=== PATIENT | male | born 1970 | race Caucasian/White ===

== ENCOUNTER 2018-11-16 12:42 | Inpatient (IN) | payer MEDICARE ==
[2018-11-16] VITALS (10 sets, daily range): BP systolic 95–111; BP diastolic 74–91
[~2018-11-16] VITALS: Ht 172.7 cm; Wt 92.1 kg
--- OUTSIDE RECORDS SUMMARY | 2018-11-16 12:45 | XMS REPORT ---
Author Author [facility] Address Unknown Phone Unavailable Care Team Providers Care Scouring Machine Operator Name Role Phone SHAMA GE Unavailable Unavailable DO MINE WALTERS Unavailable Unavailable Problems This patient has no known problems. Allergies, Adverse Reactions, Alerts This patient has no known allergies or adverse reactions. Medications This patient has no known medications. Results Test Description Test Time Test Comments Text Results Atomic Results Result Comments PT AND INR 2018-10-28 07:36:00 Protime (test code=PT) 24.1 seconds 9.0-11.9 INR (test code=INR) 2.5 0.9-1.1 INR results are intended ONLY to monitor Oral Anticoagulant therapy in stablized patients. The INR Therapeutic Range is 2.0 - 3.0 Patients with a mechanical heart, the INR Range is 2.5 - 3.5 CBC WITH AUTO [id number] 07:24:00* Test Item Value Reference Range Comments WBC (test code=WBC) 7.21 10\\S\\3/ul 4.80-10.80 RBC (test code=RBC) 3.60 10\\S\\6/ul 4.70-6.10 Hemoglobin (test code=HGB) 11.5 gm/dl 14.0-18.0 Hematocrit (test code=HCT) 34.7 % 42.0-50.0 MCV (test code=MCV) 96.4 fL 80.0-94.0 MCH (test code=MCH) 31.9 pg 27.0-31.0 MCHC (test code=MCHC) 33.1 gm/dl 33.0-37.0 RDW (test code=RDWVC) 18.5 % 11.5-14.5 Platelet (test code=PLT) 369 10\\S\\3/ul 130-400 MPV (test code=MPV) 10.1 fL 7.4-10.4 "NOT MEASURED" RESULTS ARE DISPLAYED WHEN THE INSTRUMENT HAS A SUPPRESSED OR UNREPORTABLE RESULT. THIS WILL MOST OFTEN HAPPEN WITH THE MPV WHEN THERE IS AN ABNORMAL PLATELET DISTRIBUTION DUE TO A CR ITICAL LOW VALUE OR PLATELET CLUMPING. THE RDW MAY BE SUPPRESSED IF THERE ARE MULTIPLE PEAKS PRESENT ON THE RBC HISTOGRAM. IN THIS CASE, A MANUAL REVIEW OF THE SLIDE WILL BE PERFORMED, AND RBC MORPHOLOGY WILL BE NOTED ON THE REPORT. NE% (test code=NE) 65.8 % 42.0-75.0 LY% (test code=LY) 17.2 % 13.0-42.0 MO% (test code=MO) 13.9 % 4.0-14.0 EO% (test code=EO) 1.7 % 1.0-5.0 BA% (test code=BA) 1.0 % 0.0-3.0 IG% (test code=IG%) 0.4 % 0.0-0.4 [id number] 07:18:00* Test Item Value Reference Range Comments Sodium (test code=NA) 138 mmol/l 137-145 Potassium (test code=K) 4.1 mmol/l 3.5-5.1 Chloride (test code=CL) 101 mmol/l 98-107 Calcium (test code=CALC) 8.9 mg/dl 8.5-10.1 CO2 (test code=CO2) 32 mmol/l 21-32 Glucose (test code=GLU) 91 mg/dl 74-106 BUN (test code=BUN) 10.0 mg/dl 7.0-18.0 Creatinine (test code=CREA) 0.7 mg/dl 0.5-1.3 EGFR if (test code=EGFRAA) >60 mL/min/1.73m\\S\\2 EGFR if Non- (test code=EGFRNA) >60 mL/min/1.73m\\S\\2 Estimated Glomerular Filtration Rate (eGFR) Reference Intervals Decision Points for 18 years and older and average body mass: >=60 Does not exclude kidney disease. 30 - 59 Suggests moderate chronic kidney disease and indicates the need for further investigation including assessment of proteinuria and cardiovascular factors. < 30 Usually indicates a need for referral for assessment and management of chronic kidney failure. [id number] 07:18:00* Test Item Value Reference Range Comments Magnesium (test code=MG) 2.3 mg/dl 1.6-2.6 XR CHEST 2 PA [id number] 09:28:40Procedure: XR CHEST 2 PA LATERALOrder Date: 10/27/2018 5:00 AMOrdering Provider: KIRAN Greenberginical Indication: R07.1: CHEST PAIN ON [id number]: O/E - pulmonary edemaComparison: October 24, 2018Findings:Cardiac size is enlarged.Pulmonary vasculature is normal.Mediastinal contour is normal.Aortic contour is normal.Moderate right pleural effusion with basilar infiltrate versus ate lectasis.Small left pleural effusion with basilar infiltrate versus atelectasis. No pneumothorax.There is no skeletal abnormality.Impression:1. Moderate right pl eural effusion with basilar infiltrate versus atelectasis.2. Small right pleural effusion with left basilar infiltrate versus atelectasis.3. Stable cardiomegaly .4. No other significant interval change.This final report was electronically si gned by Dr Alexei Ramirez MD 10/27/20189:22 AMDictated By: ALEXEI RAMIREZ.Date: 10/27/2018 09:[id number] 07:23:00* Test Item Value Reference Range Comments Sodium (test code=NA) 137 mmol/l 137-145 Potassium (test code=K) 4.2 mmol/l 3.5-5.1 Chloride (test code=CL) 101 mmol/l 98-107 Calcium (test code=CALC) 8.9 mg/dl 8.5-10.1 CO2 (test code=CO2) 30 mmol/l 21-32 Glucose (test code=GLU) 84 mg/dl 74-106 BUN (test code=BUN) 10.0 mg/dl 7.0-18.0 Creatinine (test code=CREA) 0.7 mg/dl 0.5-1.3 EGFR if (test code=EGFRAA) >60 mL/min/1.73m\\S\\2 EGFR if Non- (test code=EGFRNA) >60 mL/min/1.73m\\S\\2 Estimated Glomerular Filtration Rate (eGFR) Reference Intervals Decision Points for 18 years and older and average body mass: >=60 Does not exclude kidney disease. 30 - 59 Suggests moderate chronic kidney disease and indicates the need for further investigation including assessment of proteinuria and cardiovascular factors. < 30 Usually indicates a need for referral for assessment and management of chronic kidney failure. [id number] 07:23:00* Test Item Value Reference Range Comments Magnesium (test code=MG) 2.2 mg/dl 1.6-2.6 CBC WITH AUTO [id number] 07:04:00* Test Item Value Reference Range Comments WBC (test code=WBC) 7.61 10\\S\\3/ul 4.80-10.80 RBC (test code=RBC) 3.44 10\\S\\6/ul 4.70-6.10 Hemoglobin (test code=HGB) 11.0 gm/dl 14.0-18.0 Hematocrit (test code=HCT) 33.3 % 42.0-50.0 MCV (test code=MCV) 96.8 fL 80.0-94.0 MCH (test code=MCH) 32.0 pg 27.0-31.0 MCHC (test code=MCHC) 33.0 gm/dl 33.0-37.0 RDW (test code=RDWVC) 18.9 % 11.5-14.5 Platelet (test code=PLT) 347 10\\S\\3/ul 130-400 MPV (test code=MPV) 10.2 fL 7.4-10.4 "NOT MEASURED" RESULTS ARE DISPLAYED WHEN THE INSTRUMENT HAS A SUPPRESSED OR UNREPORTABLE RESULT. THIS WILL MOST OFTEN HAPPEN WITH THE MPV WHEN THERE IS AN ABNORMAL PLATELET DISTRIBUTION DUE TO A CR ITICAL LOW VALUE OR PLATELET CLUMPING. THE RDW MAY BE SUPPRESSED IF THERE ARE MULTIPLE PEAKS PRESENT ON THE RBC HISTOGRAM. IN THIS CASE, A MANUAL REVIEW OF THE SLIDE WILL BE PERFORMED, AND RBC MORPHOLOGY WILL BE NOTED ON THE REPORT. NE% (test code=NE) 66.7 % 42.0-75.0 LY% (test code=LY) 16.7 % 13.0-42.0 MO% (test code=MO) 14.1 % 4.0-14.0 EO% (test code=EO) 1.2 % 1.0-5.0 BA% (test code=BA) 0.9 % 0.0-3.0 IG% (test code=IG%) 0.4 % 0.0-0.4 PT AND [id number] 06:54:00* Test Item Value Reference Range Comments Protime (test code=PT) 29.8 seconds 9.0-11.9 INR (test code=INR) 3.1 0.9-1.1 INR results are intended ONLY to monitor Oral Anticoagulant therapy in stablized patients. The INR Therapeutic Range is 2.0 - 3.0 Patients with a mechanical heart, the INR Range is 2.5 - 3.5 [id number] 07:34:00* Test Item Value Reference Range Comments Sodium (test code=NA) 139 mmol/l 137-145 Potassium (test code=K) 4.1 mmol/l 3.5-5.1 Chloride (test code=CL) 104 mmol/l 98-107 Calcium (test code=CALC) 8.6 mg/dl 8.5-10.1 CO2 (test code=CO2) 26 mmol/l 21-32 Glucose (test code=GLU) 80 mg/dl 74-106 BUN (test code=BUN) 11.0 mg/dl 7.0-18.0 Creatinine (test code=CREA) 0.7 mg/dl 0.5-1.3 EGFR if (test code=EGFRAA) >60 mL/min/1.73m\\S\\2 EGFR if Non- (test code=EGFRNA) >60 mL/min/1.73m\\S\\2 Estimated Glomerular Filtration Rate (eGFR) Reference Intervals Decision Points for 18 years and older and average body mass: >=60 Does not exclude kidney disease. 30 - 59 Suggests moderate chronic kidney disease and indicates the need for further investigation including assessment of proteinuria and cardiovascular factors. < 30 Usually indicates a need for referral for assessment and management of chronic kidney failure. with [id number] 06:10:00* Test Item Value Reference Range Comments Magnesium (test code=MG) 2.5 mg/dl 1.6-2.6 PT AND [id number] 05:58:00* Test Item Value Reference Range Comments Protime (test code=PT) 27.3 seconds 9.0-11.9 INR (test code=INR) 2.8 0.9-1.1 INR results are intended ONLY to monitor Oral Anticoagulant therapy in stablized patients. The INR Therapeutic Range is 2.0 - 3.0 Patients with a mechanical heart, the INR Range is 2.5 - 3.5 CBC WITH AUTO [id number] 05:57:00* Test Item Value Reference Range Comments WBC (test code=WBC) 7.07 10\\S\\3/ul 4.80-10.80 RBC (test code=RBC) 3.48 10\\S\\6/ul 4.70-6.10 Hemoglobin (test code=HGB) 11.3 gm/dl 14.0-18.0 Hematocrit (test code=HCT) 34.6 % 42.0-50.0 MCV (test code=MCV) 99.4 fL 80.0-94.0 MCH (test code=MCH) 32.5 pg 27.0-31.0 MCHC (test code=MCHC) 32.7 gm/dl 33.0-37.0 RDW (test code=RDWVC) 19.6 % 11.5-14.5 Platelet (test code=PLT) 317 10\\S\\3/ul 130-400 MPV (test code=MPV) 9.9 fL 7.4-10.4 "NOT MEASURED" RESULTS ARE DISPLAYED WHEN THE INSTRUMENT HAS A SUPPRESSED OR UNREPORTABLE RESULT. THIS WILL MOST OFTEN HAPPEN WITH THE MPV WHEN THERE IS AN ABNORMAL PLATELET DISTRIBUTION DUE TO A CR ITICAL LOW VALUE OR PLATELET CLUMPING. THE RDW MAY BE SUPPRESSED IF THERE ARE MULTIPLE PEAKS PRESENT ON THE RBC HISTOGRAM. IN THIS CASE, A MANUAL REVIEW OF THE SLIDE WILL BE PERFORMED, AND RBC MORPHOLOGY WILL BE NOTED ON THE REPORT. NE% (test code=NE) 66.6 % 42.0-75.0 LY% (test code=LY) 17.1 % 13.0-42.0 MO% (test code=MO) 12.7 % 4.0-14.0 EO% (test code=EO) 2.1 % 1.0-5.0 BA% (test code=BA) 1.1 % 0.0-3.0 IG% (test code=IG%) 0.4 % 0.0-0.4 [id number] 17:35:00* Test Item Value Reference Range Comments Magnesium (test code=MG) 2.4 mg/dl 1.6-2.6 HEPARIN [id number] 13:17:00* Test Item Value Reference Range Comments HEPARIN XA (test code=HEPXA) 0.36 0.30-0.70 [id number] 05:44:00* Test Item Value Reference Range Comments Sodium (test code=NA) 138 mmol/l 137-145 Potassium (test code=K) 4.7 mmol/l 3.5-5.1 Chloride (test code=CL) 105 mmol/l 98-107 Calcium (test code=CALC) 8.8 mg/dl 8.5-10.1 CO2 (test code=CO2) 26 mmol/l 21-32 Glucose (test code=GLU) 107 mg/dl 74-106 BUN (test code=BUN) 12.0 mg/dl 7.0-18.0 Creatinine (test code=CREA) 0.6 mg/dl 0.5-1.3 EGFR if (test code=EGFRAA) >60 mL/min/1.73m\\S\\2 EGFR if Non- (test code=EGFRNA) >60 mL/min/1.73m\\S\\2 Estimated Glomerular Filtration Rate (eGFR) Reference Intervals Decision Points for 18 years and older and average body mass: >=60 Does not exclude kidney disease. 30 - 59 Suggests moderate chronic kidney disease and indicates the need for further investigation including assessment of proteinuria and cardiovascular factors. < 30 Usually indicates a need for referral for assessment and management of chronic kidney failure. [id number] 05:44:00* Test Item Value Reference Range Comments Magnesium (test code=MG) 2.4 mg/dl 1.6-2.6 CBC WITH AUTO [id number] 05:40:00* Test Item Value Reference Range Comments WBC (test code=WBC) 7.30 10\\S\\3/ul 4.80-10.80 RBC (test code=RBC) 3.68 10\\S\\6/ul 4.70-6.10 Hemoglobin (test code=HGB) 11.7 gm/dl 14.0-18.0 Hematocrit (test code=HCT) 35.9 % 42.0-50.0 MCV (test code=MCV) 97.6 fL 80.0-94.0 MCH (test code=MCH) 31.8 pg 27.0-31.0 MCHC (test code=MCHC) 32.6 gm/dl 33.0-37.0 RDW (test code=RDWVC) 19.1 % 11.5-14.5 Platelet (test code=PLT) 342 10\\S\\3/ul 130-400 MPV (test code=MPV) 9.6 fL 7.4-10.4 "NOT MEASURED" RESULTS ARE DISPLAYED WHEN THE INSTRUMENT HAS A SUPPRESSED OR UNREPORTABLE RESULT. THIS WILL MOST OFTEN HAPPEN WITH THE MPV WHEN THERE IS AN ABNORMAL PLATELET DISTRIBUTION DUE TO A CR ITICAL LOW VALUE OR PLATELET CLUMPING. THE RDW MAY BE SUPPRESSED IF THERE ARE MULTIPLE PEAKS PRESENT ON THE RBC HISTOGRAM. IN THIS CASE, A MANUAL REVIEW OF THE SLIDE WILL BE PERFORMED, AND RBC MORPHOLOGY WILL BE NOTED ON THE REPORT. NE% (test code=NE) 71.6 % 42.0-75.0 LY% (test code=LY) 15.3 % 13.0-42.0 MO% (test code=MO) 10.1 % 4.0-14.0 EO% (test code=EO) 1.5 % 1.0-5.0 BA% (test code=BA) 1.0 % 0.0-3.0 IG% (test code=IG%) 0.5 % 0.0-0.4 Neutrophils (test code=NEUTR) 74 10\\S\\3/ul 42-75 No previous value was reported. A value of 74 was entered by [employer] on 10/25/2018 05:40 Lymphocytes (test code=LYMPH) 16 % 13-42 No previous value was reported. A value of 16 was entered by [id number] on 10/25/2018 05:40 Monocytes (test code=MONOS) 7 % 4-14 No previous value was reported. A value of 7 was entered by [id number] on 10/25/2018 05:40 Eosinophils (test code=EOS) 2 % 1-3 No previous value was reported. A value of 2 was entered by [id number] on 10/25/2018 05:40 Atypical Lymphocyte (test code=ATPLYM) 1 % No previous value was reported. A value of 1 was entered by [id number] on 10/25/2018 05:40 Normal Morphology (test code=NRCM) Normal WBC RBC and Platelet Morphology Normal RBC \\T\\ WBC Morphology,Normal WBC RBC and Platelet Morphology No previous value was reported. A value of Normal WBC RBC and Platelet Morphology was entered by [id number] on 10/25/2018 05:40 PT AND [id number] 05:20:00* Test Item Value Reference Range Comments Protime (test code=PT) 21.0 seconds 9.0-11.9 INR (test code=INR) 2.2 0.9-1.1 INR results are intended ONLY to monitor Oral Anticoagulant therapy in stablized patients. The INR Therapeutic Range is 2.0 - 3.0 Patients with a mechanical heart, the INR Range is 2.5 - 3.5 HEPARIN [id number] 13:47:00* Test Item Value Reference Range Comments HEPARIN XA (test code=HEPXA) 0.59 0.30-0.70 XR CHEST AP/PA 1 [id number] 07:16:23Procedure: XR CHEST AP/PA 1 VIEWOrder Date: 10/24/2018 5:00 AMOrdering Provider: KIRAN Greenberginical Indication: [id number]: Pulmonary embolismComparison: October 17, 2018Findings:Cardiac size is enlarged.Pulmonary vasculature is no rmal.Mediastinal contour is normal.Aortic contour is normal.Moderate right pleur al effusion with basilar infiltrate versus atelectasis.Small left pleural effusi on with basilar atelectasis.No pneumothorax.There is no skeletal abnormality.Imp ression:1. Moderate right pleural effusion with basilar infiltrate versus atelec tasis.2. Small right pleural effusion with left basilar atelectasis.3. Cardiomeg mikal.4. No other significant interval change.This final report was electronically signed by Dr Alexei Ramirez MD 10/24/20187:10 AMDictated By: ALEXEI RAMIREZManny e: 10/24/2018 07:[id number] 06:48:00* Test Item Value Reference Range Comments Magnesium (test code=MG) 2.5 mg/dl 1.6-2.6 [id number] 06:48:00* Test Item Value Reference Range Comments Sodium (test code=NA) 139 mmol/l 137-145 Potassium (test code=K) 4.5 mmol/l 3.5-5.1 Chloride (test code=CL) 106 mmol/l 98-107 Calcium (test code=CALC) 8.8 mg/dl 8.5-10.1 CO2 (test code=CO2) 27 mmol/l 21-32 Glucose (test code=GLU) 83 mg/dl 74-106 BUN (test code=BUN) 11.0 mg/dl 7.0-18.0 Creatinine (test code=CREA) 0.7 mg/dl 0.5-1.3 EGFR if (test code=EGFRAA) >60 mL/min/1.73m\\S\\2 EGFR if Non- (test code=EGFRNA) >60 mL/min/1.73m\\S\\2 Estimated Glomerular Filtration Rate (eGFR) Reference Intervals Decision Points for 18 years and older and average body mass: >=60 Does not exclude kidney disease. 30 - 59 Suggests moderate chronic kidney disease and indicates the need for further investigation including assessment of proteinuria and cardiovascular factors. < 30 Usually indicates a need for referral for assessment and management of chronic kidney failure. PT AND [id number] 06:46:00* Test Item Value Reference Range Comments Protime (test code=PT) 14.6 seconds 9.0-11.9 INR (test code=INR) 1.5 0.9-1.1 INR results are intended ONLY to monitor Oral Anticoagulant therapy in stablized patients. The INR Therapeutic Range is 2.0 - 3.0 Patients with a mechanical heart, the INR Range is 2.5 - 3.5 CBC (HEMOGRAM ONLY)2018-10-24 06:35:00* Test Item Value Reference Range Comments WBC (test code=WBC) 7.50 10\\S\\3/ul 4.80-10.80 RBC (test code=RBC) 3.57 10\\S\\6/ul 4.70-6.10 Hemoglobin (test code=HGB) 11.5 gm/dl 14.0-18.0 Hematocrit (test code=HCT) 35.3 % 42.0-50.0 MCV (test code=MCV) 98.9 fL 80.0-94.0 MCH (test code=MCH) 32.2 pg 27.0-31.0 MCHC (test code=MCHC) 32.6 gm/dl 33.0-37.0 RDW (test code=RDWVC) 19.7 % 11.5-14.5 Platelet (test code=PLT) 337 10\\S\\3/ul 130-400 MPV (test code=MPV) 9.7 fL 7.4-10.4 "NOT MEASURED" RESULTS ARE DISPLAYED WHEN THE INSTRUMENT HAS A SUPPRESSED OR UNREPORTABLE RESULT. THIS WILL MOST OFTEN HAPPEN WITH THE MPV WHEN THERE IS AN ABNORMAL PLATELET DISTRIBUTION DUE TO A CR ITICAL LOW VALUE OR PLATELET CLUMPING. THE RDW MAY BE SUPPRESSED IF THERE ARE MULTIPLE PEAKS PRESENT ON THE RBC HISTOGRAM. IN THIS CASE, A MANUAL REVIEW OF THE SLIDE WILL BE PERFORMED, AND RBC MORPHOLOGY WILL BE NOTED ON THE REPORT. HEMOGRAM [id number] 23:15:00* Test Item Value Reference Range Comments Digoxin (test code=DIG) 0.9 ng/ml 0.5-2.0 HEPARIN [id number] 13:52:00* Test Item Value Reference Range Comments HEPARIN XA (test code=HEPXA) 0.49 0.30-0.70 CULTURE, [id number] 07:11:00To start 15mins after 1st cultureSpecimen: BloodCollected: 10/17/2018 12:55 Status: Final Last Updated: 10/23/2018 07:10 (1) To start 15mins after 1st culture Culture Result (Final) (Final) No Growth After 5 Days CULTURE, MELINDA [id number] 07:11:00 Specimen: BloodCollected: 10/17/2018 12:55 Status: Final Last Updated: 10/04 07:10 Culture Result (Final) (Final) No Growth After 5 Days CULTURE, [id number] 07:11:00Specimen: BloodCollected: 10/17/2018 12:55 Status: Final Last Updated: 10/23/2018 07:10 Culture Result (Final) (Final) No Growth After 5 Days CULTURE, MELINDA [id number] 07:11:00Specimen: BloodCollected: 10/17/2018 12:55 Status: Final Last Updated: 10/23/2018 07:10 Culture Result (Final) (Final) No Growth After 5 Days PT AND [id number] 05:59:00* Test Item Value Reference Range Comments Protime (test code=PT) 11.9 seconds 9.0-11.9 INR (test code=INR) 1.2 0.9-1.1 INR results are intended ONLY to monitor Oral Anticoagulant therapy in stablized patients. The INR Therapeutic Range is 2.0 - 3.0 Patients with a mechanical heart, the INR Range is 2.5 - 3.5 [id number] 05:52:00* Test Item Value Reference Range Comments Magnesium (test code=MG) 2.6 mg/dl 1.6-2.6 [id number] 05:52:00* Test Item Value Reference Range Comments Sodium (test code=NA) 140 mmol/l 137-145 Potassium (test code=K) 4.4 mmol/l 3.5-5.1 Chloride (test code=CL) 105 mmol/l 98-107 Calcium (test code=CALC) 8.5 mg/dl 8.5-10.1 CO2 (test code=CO2) 30 mmol/l 21-32 Glucose (test code=GLU) 84 mg/dl 74-106 BUN (test code=BUN) 11.0 mg/dl 7.0-18.0 Creatinine (test code=CREA) 0.7 mg/dl 0.5-1.3 T Protein (test code=TP) 6.5 gm/dl 6.4-8.2 Albumin (test code=ALB) 2.2 gm/dl 3.4-5.0 A/G Ratio (test code=AGRAT) 0.5 % 1.1-2.2 AST (SGOT) (test code=AST) 31 U/L 15-37 ALT (SGPT) (test code=ALT) 20 U/L 13-61 Alkaline Phos (test code=ALKP) 102 U/L 45-117 Total Bilirubin (test code=TBIL) 1.0 mg/dl 0.2-1.0 Globulin (test code=GLOBU) 4.3 gm/dl 2.3-3.5 Calcium, Corrected (test code=CALCCORR) 9.9 mg/dl 8.4-10.2 Various formulas exist for corrected serum calcium results, each yielding different values. This corrected result was based on the formula: Corrected Calcium=SerumCalcium + [0.8 * ( 4 - SerumAlbumin)] EGFR if (test code=EGFRAA) >60 mL/min/1.73m\\S\\2 EGFR if Non- (test code=EGFRNA) >60 mL/min/1.73m\\S\\2 Estimated Glomerular Filtration Rate (eGFR) Reference Intervals Decision Points for 18 years and older and average body mass: >=60 Does not exclude kidney disease. 30 - 59 Suggests moderate chronic kidney disease and indicates the need for further investigation including assessment of proteinuria and cardiovascular factors. < 30 Usually indicates a need for referral for assessment and management of chronic kidney failure. CBC WITH AUTO [id number] 05:52:00* Test Item Value Reference Range Comments WBC (test code=WBC) 8.15 10\\S\\3/ul 4.80-10.80 RBC (test code=RBC) 3.60 10\\S\\6/ul 4.70-6.10 Hemoglobin (test code=HGB) 11.3 gm/dl 14.0-18.0 Hematocrit (test code=HCT) 35.3 % 42.0-50.0 MCV (test code=MCV) 98.1 fL 80.0-94.0 MCH (test code=MCH) 31.4 pg 27.0-31.0 MCHC (test code=MCHC) 32.0 gm/dl 33.0-37.0 RDW (test code=RDWVC) 19.9 % 11.5-14.5 Platelet (test code=PLT) 370 10\\S\\3/ul 130-400 MPV (test code=MPV) 9.4 fL 7.4-10.4 "NOT MEASURED" RESULTS ARE DISPLAYED WHEN THE INSTRUMENT HAS A SUPPRESSED OR UNREPORTABLE RESULT. THIS WILL MOST OFTEN HAPPEN WITH THE MPV WHEN THERE IS AN ABNORMAL PLATELET DISTRIBUTION DUE TO A CR ITICAL LOW VALUE OR PLATELET CLUMPING. THE RDW MAY BE SUPPRESSED IF THERE ARE MULTIPLE PEAKS PRESENT ON THE RBC HISTOGRAM. IN THIS CASE, A MANUAL REVIEW OF THE SLIDE WILL BE PERFORMED, AND RBC MORPHOLOGY WILL BE NOTED ON THE REPORT. NE% (test code=NE) 67.8 % 42.0-75.0 LY% (test code=LY) 18.4 % 13.0-42.0 MO% (test code=MO) 9.9 % 4.0-14.0 EO% (test code=EO) 2.3 % 1.0-5.0 BA% (test code=BA) 1.1 % 0.0-3.0 IG% (test code=IG%) 0.5 % 0.0-0.4 CBC AUTO diffHEPARIN [id number] 14:10:00* Test Item Value Reference Range Comments HEPARIN XA (test code=HEPXA) 0.55 0.30-0.70 Continue till therapeutic x2 XA's - follow protocol.[id number] 08:56:00* Test Item Value Reference Range Comments Sodium (test code=NA) 140 mmol/l 137-145 Potassium (test code=K) 4.4 mmol/l 3.5-5.1 Chloride (test code=CL) 104 mmol/l 98-107 Calcium (test code=CALC) 8.6 mg/dl 8.5-10.1 CO2 (test code=CO2) 29 mmol/l 21-32 Glucose (test code=GLU) 87 mg/dl 74-106 BUN (test code=BUN) 11.0 mg/dl 7.0-18.0 Creatinine (test code=CREA) 0.6 mg/dl 0.5-1.3 EGFR if (test code=EGFRAA) >60 mL/min/1.73m\\S\\2 EGFR if Non- (test code=EGFRNA) >60 mL/min/1.73m\\S\\2 Estimated Glomerular Filtration Rate (eGFR) Reference Intervals Decision Points for 18 years and older and average body mass: >=60 Does not exclude kidney disease. 30 - 59 Suggests moderate chronic kidney disease and indicates the need for further investigation including assessment of proteinuria and cardiovascular factors. < 30 Usually indicates a need for referral for assessment and management of chronic kidney failure. [id number] 08:56:00* Test Item Value Reference Range Comments Magnesium (test code=MG) 2.5 mg/dl 1.6-2.6 HEPARIN [id number] 08:48:00* Test Item Value Reference Range Comments HEPARIN XA (test code=HEPXA) 0.63 0.30-0.70 PT AND [id number] 08:47:00* Test Item Value Reference Range Comments Protime (test code=PT) 12.0 seconds 9.0-11.9 INR (test code=INR) 1.2 0.9-1.1 INR results are intended ONLY to monitor Oral Anticoagulant therapy in stablized patients. The INR Therapeutic Range is 2.0 - 3.0 Patients with a mechanical heart, the INR Range is 2.5 - 3.5 CBC WITH AUTO [id number] 08:34:00* Test Item Value Reference Range Comments WBC (test code=WBC) 7.72 10\\S\\3/ul 4.80-10.80 RBC (test code=RBC) 3.64 10\\S\\6/ul 4.70-6.10 Hemoglobin (test code=HGB) 11.7 gm/dl 14.0-18.0 Hematocrit (test code=HCT) 35.2 % 42.0-50.0 MCV (test code=MCV) 96.7 fL 80.0-94.0 MCH (test code=MCH) 32.1 pg 27.0-31.0 MCHC (test code=MCHC) 33.2 gm/dl 33.0-37.0 RDW (test code=RDWVC) 20.2 % 11.5-14.5 Platelet (test code=PLT) 388 10\\S\\3/ul 130-400 MPV (test code=MPV) 9.4 fL 7.4-10.4 "NOT MEASURED" RESULTS ARE DISPLAYED WHEN THE INSTRUMENT HAS A SUPPRESSED OR UNREPORTABLE RESULT. THIS WILL MOST OFTEN HAPPEN WITH THE MPV WHEN THERE IS AN ABNORMAL PLATELET DISTRIBUTION DUE TO A CR ITICAL LOW VALUE OR PLATELET CLUMPING. THE RDW MAY BE SUPPRESSED IF THERE ARE MULTIPLE PEAKS PRESENT ON THE RBC HISTOGRAM. IN THIS CASE, A MANUAL REVIEW OF THE SLIDE WILL BE PERFORMED, AND RBC MORPHOLOGY WILL BE NOTED ON THE REPORT. NE% (test code=NE) 69.2 % 42.0-75.0 LY% (test code=LY) 16.8 % 13.0-42.0 MO% (test code=MO) 9.5 % 4.0-14.0 EO% (test code=EO) 2.6 % 1.0-5.0 BA% (test code=BA) 1.3 % 0.0-3.0 IG% (test code=IG%) 0.6 % 0.0-0.4 CBC AUTO diffHEPARIN [id number] 01:30:00* Test Item Value Reference Range Comments HEPARIN XA (test code=HEPXA) 0.88 0.30-0.70 [id number] 20:18:00* Test Item Value Reference Range Comments Potassium (test code=K) 3.9 mmol/l 3.5-5.1 [id number] 14:45:00* Test Item Value Reference Range Comments Potassium (test code=K) 3.1 mmol/l 3.5-5.1 [id number] 06:31:00* Test Item Value Reference Range Comments Sodium (test code=NA) 140 mmol/l 137-145 Potassium (test code=K) 3.2 mmol/l 3.5-5.1 Chloride (test code=CL) 104 mmol/l 98-107 Calcium (test code=CALC) 8.2 mg/dl 8.5-10.1 CO2 (test code=CO2) 31 mmol/l 21-32 Glucose (test code=GLU) 80 mg/dl 74-106 BUN (test code=BUN) 13.0 mg/dl 7.0-18.0 Creatinine (test code=CREA) 0.8 mg/dl 0.5-1.3 EGFR if (test code=EGFRAA) >60 mL/min/1.73m\\S\\2 EGFR if Non- (test code=EGFRNA) >60 mL/min/1.73m\\S\\2 Estimated Glomerular Filtration Rate (eGFR) Reference Intervals Decision Points for 18 years and older and average body mass: >=60 Does not exclude kidney disease. 30 - 59 Suggests moderate chronic kidney disease and indicates the need for further investigation including assessment of proteinuria and cardiovascular factors. < 30 Usually indicates a need for referral for assessment and management of chronic kidney failure. [id number] 06:31:00* Test Item Value Reference Range Comments Magnesium (test code=MG) 2.1 mg/dl 1.6-2.6 CBC WITH AUTO [id number] 06:29:00* Test Item Value Reference Range Comments WBC (test code=WBC) 7.99 10\\S\\3/ul 4.80-10.80 RBC (test code=RBC) 3.63 10\\S\\6/ul 4.70-6.10 Hemoglobin (test code=HGB) 11.7 gm/dl 14.0-18.0 Hematocrit (test code=HCT) 34.9 % 42.0-50.0 MCV (test code=MCV) 96.1 fL 80.0-94.0 MCH (test code=MCH) 32.2 pg 27.0-31.0 MCHC (test code=MCHC) 33.5 gm/dl 33.0-37.0 RDW (test code=RDWVC) 19.8 % 11.5-14.5 Platelet (test code=PLT) 390 10\\S\\3/ul 130-400 MPV (test code=MPV) 9.9 fL 7.4-10.4 "NOT MEASURED" RESULTS ARE DISPLAYED WHEN THE INSTRUMENT HAS A SUPPRESSED OR UNREPORTABLE RESULT. THIS WILL MOST OFTEN HAPPEN WITH THE MPV WHEN THERE IS AN ABNORMAL PLATELET DISTRIBUTION DUE TO A CR ITICAL LOW VALUE OR PLATELET CLUMPING. THE RDW MAY BE SUPPRESSED IF THERE ARE MULTIPLE PEAKS PRESENT ON THE RBC HISTOGRAM. IN THIS CASE, A MANUAL REVIEW OF THE SLIDE WILL BE PERFORMED, AND RBC MORPHOLOGY WILL BE NOTED ON THE REPORT. NE% (test code=NE) 64.8 % 42.0-75.0 LY% (test code=LY) 20.5 % 13.0-42.0 MO% (test code=MO) 8.6 % 4.0-14.0 EO% (test code=EO) 4.3 % 1.0-5.0 BA% (test code=BA) 1.0 % 0.0-3.0 IG% (test code=IG%) 0.8 % 0.0-0.4 PT AND [id number] 06:24:00* Test Item Value Reference Range Comments Protime (test code=PT) 12.2 seconds 9.0-11.9 INR (test code=INR) 1.2 0.9-1.1 INR results are intended ONLY to monitor Oral Anticoagulant therapy in stablized patients. The INR Therapeutic Range is 2.0 - 3.0 Patients with a mechanical heart, the INR Range is 2.5 - 3.5 HEPARIN [id number] 01:56:00* Test Item Value Reference Range Comments HEPARIN XA (test code=HEPXA) 0.53 0.30-0.70 HEPARIN [id number] 18:30:00* Test Item Value Reference Range Comments HEPARIN XA (test code=HEPXA) 0.45 0.30-0.70 HEPARIN [id number] 11:55:00* Test Item Value Reference Range Comments HEPARIN XA (test code=HEPXA) 0.20 0.30-0.70 [id number] 05:51:00* Test Item Value Reference Range Comments Sodium (test code=NA) 140 mmol/l 137-145 Potassium (test code=K) 3.5 mmol/l 3.5-5.1 Chloride (test code=CL) 101 mmol/l 98-107 Calcium (test code=CALC) 8.1 mg/dl 8.5-10.1 CO2 (test code=CO2) 32 mmol/l 21-32 Glucose (test code=GLU) 80 mg/dl 74-106 BUN (test code=BUN) 15.0 mg/dl 7.0-18.0 Creatinine (test code=CREA) 0.8 mg/dl 0.5-1.3 EGFR if (test code=EGFRAA) >60 mL/min/1.73m\\S\\2 EGFR if Non- (test code=EGFRNA) >60 mL/min/1.73m\\S\\2 Estimated Glomerular Filtration Rate (eGFR) Reference Intervals Decision Points for 18 years and older and average body mass: >=60 Does not exclude kidney disease. 30 - 59 Suggests moderate chronic kidney disease and indicates the need for further investigation including assessment of proteinuria and cardiovascular factors. < 30 Usually indicates a need for referral for assessment and management of chronic kidney failure. [id number] 05:51:00* Test Item Value Reference Range Comments Magnesium (test code=MG) 2.2 mg/dl 1.6-2.6 CBC WITH AUTO [id number] 05:49:00* Test Item Value Reference Range Comments WBC (test code=WBC) 8.30 10\\S\\3/ul 4.80-10.80 RBC (test code=RBC) 3.58 10\\S\\6/ul 4.70-6.10 Hemoglobin (test code=HGB) 11.6 gm/dl 14.0-18.0 Hematocrit (test code=HCT) 34.5 % 42.0-50.0 MCV (test code=MCV) 96.4 fL 80.0-94.0 MCH (test code=MCH) 32.4 pg 27.0-31.0 MCHC (test code=MCHC) 33.6 gm/dl 33.0-37.0 RDW (test code=RDWVC) 19.8 % 11.5-14.5 Platelet (test code=PLT) 378 10\\S\\3/ul 130-400 MPV (test code=MPV) 9.6 fL 7.4-10.4 "NOT MEASURED" RESULTS ARE DISPLAYED WHEN THE INSTRUMENT HAS A SUPPRESSED OR UNREPORTABLE RESULT. THIS WILL MOST OFTEN HAPPEN WITH THE MPV WHEN THERE IS AN ABNORMAL PLATELET DISTRIBUTION DUE TO A CR ITICAL LOW VALUE OR PLATELET CLUMPING. THE RDW MAY BE SUPPRESSED IF THERE ARE MULTIPLE PEAKS PRESENT ON THE RBC HISTOGRAM. IN THIS CASE, A MANUAL REVIEW OF THE SLIDE WILL BE PERFORMED, AND RBC MORPHOLOGY WILL BE NOTED ON THE REPORT. NE% (test code=NE) 68.7 % 42.0-75.0 LY% (test code=LY) 17.8 % 13.0-42.0 MO% (test code=MO) 8.7 % 4.0-14.0 EO% (test code=EO) 3.5 % 1.0-5.0 BA% (test code=BA) 0.8 % 0.0-3.0 IG% (test code=IG%) 0.5 % 0.0-0.4 HEPARIN [id number] 11:59:00* Test Item Value Reference Range Comments HEPARIN XA (test code=HEPXA) 0.41 0.30-0.70 [id number] 06:00:00* Test Item Value Reference Range Comments Magnesium (test code=MG) 2.0 mg/dl 1.6-2.6 [id number] 06:00:00* Test Item Value Reference Range Comments Sodium (test code=NA) 136 mmol/l 137-145 Potassium (test code=K) 3.8 mmol/l 3.5-5.1 Chloride (test code=CL) 97 mmol/l 98-107 Calcium (test code=CALC) 8.0 mg/dl 8.5-10.1 CO2 (test code=CO2) 32 mmol/l 21-32 Glucose (test code=GLU) 106 mg/dl 74-106 BUN (test code=BUN) 20.0 mg/dl 7.0-18.0 Creatinine (test code=CREA) 0.9 mg/dl 0.5-1.3 EGFR if (test code=EGFRAA) >60 mL/min/1.73m\\S\\2 EGFR if Non- (test code=EGFRNA) >60 mL/min/1.73m\\S\\2 Estimated Glomerular Filtration Rate (eGFR) Reference Intervals Decision Points for 18 years and older and average body mass: >=60 Does not exclude kidney disease. 30 - 59 Suggests moderate chronic kidney disease and indicates the need for further investigation including assessment of proteinuria and cardiovascular factors. < 30 Usually indicates a need for referral for assessment and management of chronic kidney failure. CBC WITH AUTO [id number] 05:51:00* Test Item Value Reference Range Comments WBC (test code=WBC) 8.97 10\\S\\3/ul 4.80-10.80 RBC (test code=RBC) 3.51 10\\S\\6/ul 4.70-6.10 Hemoglobin (test code=HGB) 11.3 gm/dl 14.0-18.0 Hematocrit (test code=HCT) 33.6 % 42.0-50.0 MCV (test code=MCV) 95.7 fL 80.0-94.0 MCH (test code=MCH) 32.2 pg 27.0-31.0 MCHC (test code=MCHC) 33.6 gm/dl 33.0-37.0 RDW (test code=RDWVC) 19.4 % 11.5-14.5 Platelet (test code=PLT) 377 10\\S\\3/ul 130-400 MPV (test code=MPV) 9.9 fL 7.4-10.4 "NOT MEASURED" RESULTS ARE DISPLAYED WHEN THE INSTRUMENT HAS A SUPPRESSED OR UNREPORTABLE RESULT. THIS WILL MOST OFTEN HAPPEN WITH THE MPV WHEN THERE IS AN ABNORMAL PLATELET DISTRIBUTION DUE TO A CR ITICAL LOW VALUE OR PLATELET CLUMPING. THE RDW MAY BE SUPPRESSED IF THERE ARE MULTIPLE PEAKS PRESENT ON THE RBC HISTOGRAM. IN THIS CASE, A MANUAL REVIEW OF THE SLIDE WILL BE PERFORMED, AND RBC MORPHOLOGY WILL BE NOTED ON THE REPORT. NE% (test code=NE) 72.7 % 42.0-75.0 LY% (test code=LY) 14.4 % 13.0-42.0 MO% (test code=MO) 7.9 % 4.0-14.0 EO% (test code=EO) 3.6 % 1.0-5.0 BA% (test code=BA) 0.6 % 0.0-3.0 IG% (test code=IG%) 0.8 % 0.0-0.4 CBC WITH AUTO [id number] 19:25:00* Test Item Value Reference Range Comments WBC (test code=WBC) 9.13 10\\S\\3/ul 4.80-10.80 RBC (test code=RBC) 3.50 10\\S\\6/ul 4.70-6.10 Hemoglobin (test code=HGB) 11.5 gm/dl 14.0-18.0 Hematocrit (test code=HCT) 32.9 % 42.0-50.0 MCV (test code=MCV) 94.0 fL 80.0-94.0 MCH (test code=MCH) 32.9 pg 27.0-31.0 MCHC (test code=MCHC) 35.0 gm/dl 33.0-37.0 RDW (test code=RDWVC) 19.2 % 11.5-14.5 Platelet (test code=PLT) 392 10\\S\\3/ul 130-400 MPV (test code=MPV) 10.5 fL 7.4-10.4 "NOT MEASURED" RESULTS ARE DISPLAYED WHEN THE INSTRUMENT HAS A SUPPRESSED OR UNREPORTABLE RESULT. THIS WILL MOST OFTEN HAPPEN WITH THE MPV WHEN THERE IS AN ABNORMAL PLATELET DISTRIBUTION DUE TO A CR ITICAL LOW VALUE OR PLATELET CLUMPING. THE RDW MAY BE SUPPRESSED IF THERE ARE MULTIPLE PEAKS PRESENT ON THE RBC HISTOGRAM. IN THIS CASE, A MANUAL REVIEW OF THE SLIDE WILL BE PERFORMED, AND RBC MORPHOLOGY WILL BE NOTED ON THE REPORT. NE% (test code=NE) 71.3 % 42.0-75.0 LY% (test code=LY) 17.7 % 13.0-42.0 MO% (test code=MO) 7.0 % 4.0-14.0 EO% (test code=EO) 2.6 % 1.0-5.0 BA% (test code=BA) 0.7 % 0.0-3.0 IG% (test code=IG%) 0.7 % 0.0-0.4 [id number] 15:38:00* Test Item Value Reference Range Comments Sodium (test code=NA) 135 mmol/l 137-145 Potassium (test code=K) 4.0 mmol/l 3.5-5.1 Chloride (test code=CL) 95 mmol/l 98-107 Calcium (test code=CALC) 8.3 mg/dl 8.5-10.1 CO2 (test code=CO2) 33 mmol/l 21-32 Glucose (test code=GLU) 107 mg/dl 74-106 BUN (test code=BUN) 19.0 mg/dl 7.0-18.0 Creatinine (test code=CREA) 1.0 mg/dl 0.5-1.3 EGFR if (test code=EGFRAA) >60 mL/min/1.73m\\S\\2 EGFR if Non- (test code=EGFRNA) >60 mL/min/1.73m\\S\\2 Estimated Glomerular Filtration Rate (eGFR) Reference Intervals Decision Points for 18 years and older and average body mass: >=60 Does not exclude kidney disease. 30 - 59 Suggests moderate chronic kidney disease and indicates the need for further investigation including assessment of proteinuria and cardiovascular factors. < 30 Usually indicates a need for referral for assessment and management of chronic kidney failure. [id number] 13:45:00* Test Item Value Reference Range Comments CPK (test code=CPK) 29 U/L 26-308 TROPONIN-I [id number] 13:45:00* Test Item Value Reference Range Comments Troponin-I (test code=TROP) <0.015 ng/ml 0.000-0.045 The 99th Percentile URL is 0.045 ng/mL for the Siemens [place] Troponin I. The Joint Society of Cardiology/[place] [employer] (ESC/ACC) and the National Academy of Clinical Biochemistry Standards of Laboratory Practices (NACB) recommends that the diagnosis of AMI includes the presence of clinical history suggestive of Acute Coronary Syndrome (ACS) and a maximum concentration of cardiac troponin exceeding the 99th percentile of a normal reference population [upper reference limit (URL)] on at least one occasion during the first 24 hours after the clinical event. [id number] 13:45:00* Test Item Value Reference Range Comments CKMB (test code=CKMB) 1.40 ng/ml 0.50-3.60 HEPARIN [id number] 11:20:00* Test Item Value Reference Range Comments HEPARIN XA (test code=HEPXA) 0.63 0.30-0.70 T3 [id number] 06:52:00* Test Item Value Reference Range Comments T3, FREE (test code=FT3) 1.45 pg/ml 2.18-3.98 [id number] 06:20:00* Test Item Value Reference Range Comments CPK (test code=CPK) 28 U/L 26-308 TROPONIN-I [id number] 06:20:00* Test Item Value Reference Range Comments Troponin-I (test code=TROP) <0.015 ng/ml 0.000-0.045 The 99th Percentile URL is 0.045 ng/mL for the Siemens [place] Troponin I. The Joint Society of Cardiology/[place] [employer] (ESC/ACC) and the National Academy of Clinical Biochemistry Standards of Laboratory Practices (NACB) recommends that the diagnosis of AMI includes the presence of clinical history suggestive of Acute Coronary Syndrome (ACS) and a maximum concentration of cardiac troponin exceeding the 99th percentile of a normal reference population [upper reference limit (URL)] on at least one occasion during the first 24 hours after the clinical event. [id number] 06:20:00* Test Item Value Reference Range Comments CKMB (test code=CKMB) 1.40 ng/ml 0.50-3.60 HEPARIN [id number] 06:10:00* Test Item Value Reference Range Comments HEPARIN XA (test code=HEPXA) 0.69 0.30-0.70 FREE [id number] 06:09:00* Test Item Value Reference Range Comments Free T4 (test code=FT4) 1.25 ng/dl 0.76-1.46 [id number] 06:09:00* Test Item Value Reference Range Comments Magnesium (test code=MG) 1.7 mg/dl 1.6-2.6 [id number] 06:09:00* Test Item Value Reference Range Comments Sodium (test code=NA) 135 mmol/l 137-145 Potassium (test code=K) 3.1 mmol/l 3.5-5.1 Chloride (test code=CL) 95 mmol/l 98-107 Calcium (test code=CALC) 8.2 mg/dl 8.5-10.1 CO2 (test code=CO2) 31 mmol/l 21-32 Glucose (test code=GLU) 114 mg/dl 74-106 BUN (test code=BUN) 19.0 mg/dl 7.0-18.0 Creatinine (test code=CREA) 0.9 mg/dl 0.5-1.3 T Protein (test code=TP) 6.2 gm/dl 6.4-8.2 Albumin (test code=ALB) 2.1 gm/dl 3.4-5.0 A/G Ratio (test code=AGRAT) 0.5 % 1.1-2.2 AST (SGOT) (test code=AST) 26 U/L 15-37 ALT (SGPT) (test code=ALT) 14 U/L 13-61 Alkaline Phos (test code=ALKP) 102 U/L 45-117 Total Bilirubin (test code=TBIL) 2.5 mg/dl 0.2-1.0 Globulin (test code=GLOBU) 4.1 gm/dl 2.3-3.5 Calcium, Corrected (test code=CALCCORR) 9.7 mg/dl 8.4-10.2 Various formulas exist for corrected serum calcium results, each yielding different values. This corrected result was based on the formula: Corrected Calcium=SerumCalcium + [0.8 * ( 4 - SerumAlbumin)] EGFR if (test code=EGFRAA) >60 mL/min/1.73m\\S\\2 EGFR if Non- (test code=EGFRNA) >60 mL/min/1.73m\\S\\2 Estimated Glomerular Filtration Rate (eGFR) Reference Intervals Decision Points for 18 years and older and average body mass: >=60 Does not exclude kidney disease. 30 - 59 Suggests moderate chronic kidney disease and indicates the need for further investigation including assessment of proteinuria and cardiovascular factors. < 30 Usually indicates a need for referral for assessment and management of chronic kidney failure. CBC WITH AUTO [id number] 06:07:00* Test Item Value Reference Range Comments WBC (test code=WBC) 9.16 10\\S\\3/ul 4.80-10.80 RBC (test code=RBC) 3.50 10\\S\\6/ul 4.70-6.10 Hemoglobin (test code=HGB) 11.2 gm/dl 14.0-18.0 Hematocrit (test code=HCT) 32.4 % 42.0-50.0 MCV (test code=MCV) 92.6 fL 80.0-94.0 MCH (test code=MCH) 32.0 pg 27.0-31.0 MCHC (test code=MCHC) 34.6 gm/dl 33.0-37.0 RDW (test code=RDWVC) 18.6 % 11.5-14.5 Platelet (test code=PLT) 356 10\\S\\3/ul 130-400 MPV (test code=MPV) 9.6 fL 7.4-10.4 "NOT MEASURED" RESULTS ARE DISPLAYED WHEN THE INSTRUMENT HAS A SUPPRESSED OR UNREPORTABLE RESULT. THIS WILL MOST OFTEN HAPPEN WITH THE MPV WHEN THERE IS AN ABNORMAL PLATELET DISTRIBUTION DUE TO A CR ITICAL LOW VALUE OR PLATELET CLUMPING. THE RDW MAY BE SUPPRESSED IF THERE ARE MULTIPLE PEAKS PRESENT ON THE RBC HISTOGRAM. IN THIS CASE, A MANUAL REVIEW OF THE SLIDE WILL BE PERFORMED, AND RBC MORPHOLOGY WILL BE NOTED ON THE REPORT. NE% (test code=NE) 77.8 % 42.0-75.0 LY% (test code=LY) 10.2 % 13.0-42.0 MO% (test code=MO) 8.4 % 4.0-14.0 EO% (test code=EO) 2.3 % 1.0-5.0 BA% (test code=BA) 0.5 % 0.0-3.0 IG% (test code=IG%) 0.8 % 0.0-0.4 T3 [id number] 23:13:00* Test Item Value Reference Range Comments T3, FREE (test code=FT3) 1.64 pg/ml 2.18-3.98 PT AND [id number] 22:58:00* Test Item Value Reference Range Comments Protime (test code=PT) 15.3 seconds 9.0-11.9 INR (test code=INR) 1.5 0.9-1.1 INR results are intended ONLY to monitor Oral Anticoagulant therapy in stablized patients. The INR Therapeutic Range is 2.0 - 3.0 Patients with a mechanical heart, the INR Range is 2.5 - 3.5 TROPONIN-I [id number] 22:54:00* Test Item Value Reference Range Comments Troponin-I (test code=TROP) <0.015 ng/ml 0.000-0.045 The 99th Percentile URL is 0.045 ng/mL for the Siemens [place] Troponin I. The Joint Society of Cardiology/[place] [employer] (ESC/ACC) and the National Academy of Clinical Biochemistry Standards of Laboratory Practices (NACB) recommends that the diagnosis of AMI includes the presence of clinical history suggestive of Acute Coronary Syndrome (ACS) and a maximum concentration of cardiac troponin exceeding the 99th percentile of a normal reference population [upper reference limit (URL)] on at least one occasion during the first 24 hours after the clinical event. [id number] 22:54:00* Test Item Value Reference Range Comments CPK (test code=CPK) 38 U/L 26-308 [id number] 22:54:00* Test Item Value Reference Range Comments CKMB (test code=CKMB) 1.30 ng/ml 0.50-3.60 FREE [id number] 22:54:00* Test Item Value Reference Range Comments Free T4 (test code=FT4) 1.30 ng/dl 0.76-1.46 CBC WITH AUTO [id number] 22:13:00* Test Item Value Reference Range Comments WBC (test code=WBC) 9.81 10\\S\\3/ul 4.80-10.80 RBC (test code=RBC) 3.68 10\\S\\6/ul 4.70-6.10 Hemoglobin (test code=HGB) 12.0 gm/dl 14.0-18.0 Hematocrit (test code=HCT) 33.4 % 42.0-50.0 MCV (test code=MCV) 90.8 fL 80.0-94.0 MCH (test code=MCH) 32.6 pg 27.0-31.0 MCHC (test code=MCHC) 35.9 gm/dl 33.0-37.0 RDW (test code=RDWVC) 18.3 % 11.5-14.5 Platelet (test code=PLT) 343 10\\S\\3/ul 130-400 MPV (test code=MPV) 9.5 fL 7.4-10.4 "NOT MEASURED" RESULTS ARE DISPLAYED WHEN THE INSTRUMENT HAS A SUPPRESSED OR UNREPORTABLE RESULT. THIS WILL MOST OFTEN HAPPEN WITH THE MPV WHEN THERE IS AN ABNORMAL PLATELET DISTRIBUTION DUE TO A CR ITICAL LOW VALUE OR PLATELET CLUMPING. THE RDW MAY BE SUPPRESSED IF THERE ARE MULTIPLE PEAKS PRESENT ON THE RBC HISTOGRAM. IN THIS CASE, A MANUAL REVIEW OF THE SLIDE WILL BE PERFORMED, AND RBC MORPHOLOGY WILL BE NOTED ON THE REPORT. NE% (test code=NE) 69.3 % 42.0-75.0 LY% (test code=LY) 17.5 % 13.0-42.0 MO% (test code=MO) 10.0 % 4.0-14.0 EO% (test code=EO) 1.9 % 1.0-5.0 BA% (test code=BA) 0.5 % 0.0-3.0 IG% (test code=IG%) 0.8 % 0.0-0.4 NRBC, Auto (test code=NRBC_AUTO) 0 /100WBC 0-2 Protocol states Every Other DayCT HEAD W/O [id number] 16:34:27CT HEAD W/O CONTRASTOrdering Provider: MINE WALTERSHistory: [id number]: Altered mental statusComparison studies: None.Technique:Noncontrast axial scans were obtained from skull base to the vertex. Coronaland sagittal reconstructions obtained from the axial data. One or more of thefollowing dose reduction techniques were used: Automated exposure control,adjustment of the mA and/or kV according to patient size, and/or utilization ofiterative reconstruction technique.DISCUSSI ON:Scalp/Skull: Unremarkable.Brain sulci: Appropriate for patient's age.Ventricl es: Normal in size and configuration. No hydrocephalus.Extra-axial spaces: Ther e is a small arachnoid cyst along the anterior righttemporal pole. No additional masses or fluid collections.Parenchyma:No abnormal densities.No masses, hemorrh age, or large vascular territory acute infarct.Dural sinuses: No abnormal densi ties.Sellar/Suprasellar region: Intact.Skull base: Intact.Incidental findings: N one.IMPRESSION:1. No acute intracranial abnormalities.2. Small right middle cr anial fossa arachnoid cyst.This final report was electronically signed by Dr Jesús Pretty MD 10/17/20184:28 PMDictated By: BHAVESH PRETTYDate: 10/17/2018 16 :[id number] 15:41:00* Test Item Value Reference Range Comments pH (ABG) (test code=BGPH) 7.446 7.350-7.450 pCO2(T) (test code=BGPCO2(T)) 46.2 mm Hg 35.0-45.0 pO2(T) (test code=BGPO2(T)) 92.7 mm Hg 80.0-100.0 sO2 (test code=BGSO2) 97.9 % 90.0-99.0 Na+ (test code=BGCNA+) 132.2 mmol/l 135.0-148.0 K+ (test code=BGCK+) 2.65 mmol/l 3.50-4.50 Ca2+ (test code=BGCCA2+) 1.110 mmol/l 1.120-1.320 Cl- (test code=BGCCL-) 90 mmol/l 98-107 tHb (test code=BGCTHB) 11.9 gm/dl 11.5-17.4 Hct (test code=BGHCT) 42.3 35.0-50.0 O2Hb (test code=OXJI1ME) >95.0 % 95.0-99.0 COHb (test code=BGFCOHB) <2.80 % 0.5-2.5 MetHB (test code=BGMETHB) <1.30 % 0.4-1.5 Gluc (test code=BGCGLU) 126.0 mg/dl 60.0-109.9 Lac (test code=BGCLAC) <1.60 mmol/l 0.44-2.22 Barometric Pressure (test code=BGBARO) 769.3 mm Hg 450.0-1000.0 BE(act) (test code=BGBEACT) 7 mmol/l HCO3 (test code=BGHCO3) 29 meq/L 22-26 ctCO2(B) (test code=BGCTCO2(B)) 28 mmol/l FIO2 (fO2(I) (test code=BGFIO2) 0.21 % Drawn By (test code=BGDRAWNBY) FINN DAVIS Collection Date (test code=BGDTCOL) 10/17/2018 Collection Time (test code=BGCTM) 15:40 Sample Site (test code=BGSAMPLESITE) R Radial Sample Type (test code=BGSAMPLETYPE) Arterial Allens Test (test code=BGALLEN) Acceptable Notified By (test code=BGNOTIFIEDBY) FINN DAVIS Notified Whom (test code=BGNOTIFIEDWHOM) DR PENN Date Notified (test code=BGDTNOTIFIED) 10/17/2018 Time Notified (test code=BGTMNOTIFIED) 15:40 Instrument ID (test code=BGINSTRID) [id number] Reported By (test code=BGREPORTEDBY) FINN DAVIS DRUG SCREEN [id number] 15:28:00* Test Item Value Reference Range Comments PH (test code=UPH) 6.0 Specific [place] (test code=USPGR) <=1.005 FT (test code=AMPHET) Negative (qualifier value) FT (test code=JAMARCUS) Negative (qualifier value) FT (test code=BENZO) Negative (qualifier value) FT (test code=MATTEO) Negative (qualifier value) FT (test code=MTD) Negative (qualifier value) Opiates (test code=OPIAT) Positive FT (test code=PCP) Negative (qualifier value) The following table provides an interpretive guide for the Drugs of Abuse ran on the Siemens [place] analyzer listed there in: Amphetamines < 1000 ng/ml=Negative Barbituates < 200 ng/ml=Negative Benzodiazapines < 200 ngml=Negative Cocaine < 300 ng/ml=Negative Methadone < 300 ng/ml=Negative Opiate < 300 ng/ml=Negative PCP < 25 ng/ml=Negative THC < 50 ng/ml=Negative Results equal to or greater than the above cut- off values=Presumptive Positive. Confirmation of Presumptive Positive results are available upon request. FT (test code=THC) Negative (qualifier value) URINALYSIS WITH [id number] 15:25:00* Test Item Value Reference Range Comments Color (test code=UCOLR) LT. YELLOW Clarity (test code=UCLAR) CLEAR Glucose (test code=UGLUC) NEGATIVE NEGATIVE Bilirubin (test code=UBILI) NEGATIVE NEGATIVE Ketones (test code=UKET) NEGATIVE NEGATIVE Specific [place] (test code=USPGR) <=1.005 1.005-1.030 Blood (test code=UBLD) NEGATIVE NEGATIVE PH (test code=UPH) 6.0 4.5-8.0 Protein (test code=UPROT) NEGATIVE NEGATIVE Urobilinogen (test code=U UROB) 0.2 >0.2 Nitrite (test code=UNITR) NEGATIVE NEGATIVE Leukocyte Esterase (test code=ULEUK) NEGATIVE NEGATIVE WBC (test code=WBCUR) None Seen 0-5 RBC (test code=RBCUR) None Seen 0-5 Epithial Cells (test code=U EPI) None Seen 0-10 Mucous (test code=UMUC) None Seen None Seen Bacteria (test code=UBACT) None Seen None Seen,Trace CT CHEST [id number]/[id number] 15:23:00EXAM: CT Chest WITH contrast 10/17/2018 2:23 PMINDICATION: [id number]: Acute respiratory failure. Shortness of breath.COMPARISON: Chest x-ray October 17, 2018TECHNIQUE:Chest was scanned utilizing a multidetector helical scanner from the lung apexthrough the level of the adrenal glands without administration of IV contrast.Coronal and sagittal reformations were obtained. Routine protocol was performed.IV CONTRAST: 100 mL of Isovue 300COMPLICATIONS: NoneRADIATION DOSE:Total DLP: 844 mGy*cmEstimated effective dose: (DLP x 0.014 x size factor) mSvCTDIvol has been reviewed. It is below the limits set by the RadiationProtocol Committee (RPC).Dose modulation, iterative reconstruction, and/or weight based adjustments ofthe mA/kV was utilized to reduce the radiation dose to as low as reasonablyachievabl e.FINDINGS:LINES/ TUBES: None.LUNGS AND AIRWAYS:Multiple pulmonary emboli involv ing segmental branches in bilateral lungs.Right lower lobe atelectasis with sign ificant areas of hypo-enhancement, likelypulmonary infarcts. Mottled groundglass opacities in the dependent portion ofthe right middle lobe, possibly a combinat ion of aspiration or pulmonaryinfarcts. More rounded nodular opacities in the an terior right upper lobeextending to the pleura. Mottled groundglass opacity in t he left lower lobe inthe distribution of another pulmonary emboli, which may rep resent pulmonaryinfarct versus aspiration/pneumonia.Calcified granuloma in the l eft upper lobe.Airways are normal.PLEURA: Large right and small left pleural eff usions.HEART AND MEDIASTINUM: The thyroid gland is normal. No mediastinal, fletcher r oraxillary lymphadenopathy. The heart is moderately enlarged. Left ventricula rmyocardial thinning. Questionable hypoenhancing area near the left ventriculara pex, possibly a thrombus (series 4, image 52). Thrombus in the left atrialappend age (series 4, image 37). Enlarged right atrium and right ventricle withstraight ening of the interventricular septum. Mild reflux of contrast into theright hepa tic veins. There is no pericardial effusion.UPPER ABDOMEN: Mild nonspecific mese nteric edema in the upper abdomen. Upperabdomen is otherwise grossly unremarkabl e.BONES: The visualized bony thorax is within normal limits.SOFT TISSUES: Unrema rkable.IMPRESSION:1. Bilateral segmental pulmonary emboli with associated pulmo nary infarcts.2. The pulmonary findings are a combination of pulmonary infarcts andaspiration/pneumonia3. Thrombus in the left atrial appendage and possibly in the left ventricle.This would result in the systemic emboli.4. Large right pl eural effusion. Small left pleural effusion.Results were discussed with Annie, patient's provider, by Dr. Pate on October at 3:10 PM.This final report was electronically signed by Dr Art Pate MD 10/17/2018 3:16 PMDictated By: ART PATE Date: 10/17/2018 15:16XR CHEST AP/PA 1 [id number] 13:24:14 ORIGINALEXAM: XR CHEST A P/PA 1 VIEWINDICATION: Shortness of breath, chest pain, history of smokingCOMPAR STEPHANIE: NoneFINDINGS:TIME OF EXAM: 1011 hoursCARDIOMEDIASTINAL SILHOUETTE:The hear t is enlarged. The aorta is normal in morphology. Central pulmonaryvasculature i s prominent.LINES/TUBES:None.LUNGS:The pulmonary vascular markings are normal.Lucia ng volumes are low. There is infiltrate and associated atelectasis in theright m idlung field and lower lobe. Retrocardiac airspace opacity is present.Patchy ai rspace opacity in the left midlung field measures 3.6 cm. Calcifiedgranuloma in the left midlung field measures 5 mm.PLEURA:No large effusions. A right pleural effusion is suspected.There is no pneumothorax.BONES/SOFT TISSUES:The osseous st ructures demonstrate a bony bridge between the acromion andcoracoid process. Thi s may be the result of remote injury.The soft tissues are unremarkable.IMPRESSIO N:1. Cardiomegaly and central vascular congestion.2. Right basilar airspace op acity is suggestive of pneumonia with associatedatelectasis and likely small eff usion. Please correlate with signs/symptoms ofinfection. Recommend short-term f ollowup with PA and lateral x-ray to documentinterval change/resolution and to e xclude neoplastic process.3. Retrocardiac airspace opacity either atelectasis or infiltrate. Smalleffusion cannot be excluded.This final report was electronical ly signed by Dr Ria Wheat MD 10/17/201810:25 AMDictated By: DANELLE WHEAT IADate: 10/17/2018 10:25ADDENDUM Under the section entitled "Lungs", the first sentence should be delete d.This final report was electronically signed by Dr Ria Wheat MD 91:17 PMDictated By: RIA WHEATDate: 10/17/2018 13:17TROPONIN-I [id number] 11:58:00* Test Item Value Reference Range Comments Troponin-I (test code=TROP) <0.015 ng/ml 0.000-0.034 The 99th Percentile URL is 0.045 ng/mL for the Siemens [place] Troponin I. The Joint Society of Cardiology/[place] [employer] (ESC/ACC) and the National Academy of Clinical Biochemistry Standards of Laboratory Practices (NACB) recommends that the diagnosis of AMI includes the presence of clinical history suggestive of Acute Coronary Syndrome (ACS) and a maximum concentration of cardiac troponin exceeding the 99th percentile of a normal reference population [upper reference limit (URL)] on at least one occasion during the first 24 hours after the clinical event. SALICYLATES (Aspirin)2018-10-17 11:01:00* Test Item Value Reference Range Comments Salicylate (test code=SALI) <2.8 mg/dl 0.0-30.0 Salicylates Reference Ranges: Therapeutic 15 - 30 mg/dl Toxicity >30 mg/dl Lethal >70 mg/dl PRO-BNP(B-Type Natriuretic Peptide)2018-10-17 10:59:00* Test Item Value Reference Range Comments Pro-BNP(B-Peptide) (test code=PROBNP) 69716 pg/ml 0-125 Critical values were called to MIKE YOO (RN/ED) @1059AM by [id number] on 10/03 12/21 10:59 CDT. Results were read back by MIKE YOO (COLTEN/ED) @1059AM.CMP 2018-10-17 10:51:00* Test Item Value Reference Range Comments Glucose (test code=GLU) 125 mg/dl 75-110 BUN (test code=BUN) 20.0 mg/dl 6.0-17.0 Creatinine (test code=CREA) 1.3 mg/dl 0.4-1.2 Sodium (test code=NA) 130 mmol/l 137-145 Potassium (test code=K) 4.3 mmol/l 3.5-5.0 Chloride (test code=CL) 89 mmol/l 98-107 CO2 (test code=CO2) 29 mmol/l 22-30 Calcium (test code=CALC) 8.5 mg/dl 8.4-10.2 T Protein (test code=TP) 7.0 gm/dl 5.1-8.7 Albumin (test code=ALB) 2.2 gm/dl 3.5-4.6 A/G Ratio (test code=AGRAT) 0.5 % 1.1-2.2 AST (SGOT) (test code=AST) 26 U/L 11-36 ALT (SGPT) (test code=ALT) 17 U/L 11-40 Alkaline Phos (test code=ALKP) 123 U/L 47-114 Total Bilirubin (test code=TBIL) 2.6 mg/dl 0.2-1.2 Globulin (test code=GLOBU) 4.8 gm/dl 2.3-3.5 Calcium, Corrected (test code=CALCCORR) 9.9 mg/dl 8.4-10.2 Various formulas exist for corrected serum calcium results, each yielding different values. This corrected result was based on the formula: Corrected Calcium=SerumCalcium + [0.8 * ( 4 - SerumAlbumin)] EGFR if (test code=EGFRAA) >60 mL/min/1.73m\\S\\2 EGFR if Non- (test code=EGFRNA) >60 mL/min/1.73m\\S\\2 Estimated Glomerular Filtration Rate (eGFR) Reference Intervals Decision Points for 18 years and older and average body mass: >=60 Does not exclude kidney disease. 30 - 59 Suggests moderate chronic kidney disease and indicates the need for further investigation including assessment of proteinuria and cardiovascular factors. < 30 Usually indicates a need for referral for assessment and management of chronic kidney failure. TSH (Ultra Sensitive)2018-10-17 10:50:00* Test Item Value Reference Range Comments TSH (test code=TSH) 7.14 mIU/L 0.47-4.68 ACETAMINOPHEN (Tyenol)2018-10-17 10:42:00* Test Item Value Reference Range Comments Acetaminophen (test code=ACET) <2 ug/ml 10-30 ALCOHOL, [id number] 10:42:00* Test Item Value Reference Range Comments Alcohol % (test code=ALCPC) 0 % 0.00-0.00 Ethanol % 0.00 - 0.10 Sub-clinical 0.11 - 0.20 Emotional Instability 0.21 - 0.30 Confusion 0.31 - 0.40 Stupor 0.41 - 0.50 Coma >.50 Fatal CBC WITH AUTO [id number] 10:29:00* Test Item Value Reference Range Comments WBC (test code=WBC) 9.92 10\\S\\3/ul 4.80-10.80 RBC (test code=RBC) 4.06 10\\S\\6/ul 4.70-6.10 Hemoglobin (test code=HGB) 12.7 gm/dl 14.0-18.0 Hematocrit (test code=HCT) 37.3 % 42.0-50.0 MCV (test code=MCV) 91.9 fL 80.0-94.0 MCH (test code=MCH) 31.3 pg 27.0-31.0 MCHC (test code=MCHC) 34.0 gm/dl 33.0-37.0 RDW (test code=RDWVC) 18.9 % 11.5-14.5 Platelet (test code=PLT) 403 10\\S\\3/ul 130-400 MPV (test code=MPV) 9.6 fL 7.4-10.4 NE% (test code=NE) 75.6 % 42.0-75.0 LY% (test code=LY) 13.6 % 13.0-42.0 MO% (test code=MO) 9.0 % 4.0-14.0 EO% (test code=EO) 0.8 % 1.0-5.0 BA% (test code=BA) 0.5 % 0.0-3.0 IG% (test code=IG%) 0.5 % 0.0-0.4
[2018-11-16 13:37] LABS: BASOPHILS # (AUTO) 0.1 (0.0-0.1); BASOPHILS % 1.2 % (0.0-1.0); EOSINOPHILS # (AUTO) 0.4 (0.0-0.4); EOSINOPHILS % 4.5 % (0.0-6.0); HEMATOCRIT 34.8 % (38.2-49.6); HEMOGLOBIN 11.6 g/dL (14.0-18.0); LYMPHOCYTES # (AUTO) 1.6 (1.0-3.2); LYMPHOCYTES % 18.1 % (18.0-39.1); MEAN CORPUSCULAR HEMOGLOBIN 30.5 pg (28-32); MEAN CORPUSCULAR HGB CONC 33.3 g/dL (31-35); MEAN CORPUSCULAR VOLUME 91.6 fL (81-99); MONOCYTES # (AUTO) 0.9 (0.2-0.8); MONOCYTES % 10.6 % (4.4-11.3); NEUTROPHILS # (AUTO) 5.7 (2.1-6.9); NEUTROPHILS % 65.3 % (38.7-80.0); PLATELET COUNT 388 x10e3/uL (140-360); RED CELL DISTRIBUTION WIDTH 17.3 % (11.7-14.4)
--- NOTE | 2018-11-16 13:43 | Diagnostic Imaging Report ---
Examination: Single AP view of the chest. COMPARISON: None. INDICATION: Shortness of breath DISCUSSION: Lines/tubes: None. Lungs: Bilateral pleural effusions with adjacent airspace opacifications. Heart and mediastinum: The heart and the mediastinum are unremarkable. Bones and soft tissues: No acute bony abnormalities. IMPRESSION: Bilateral pleural effusions with lower lung atelectasis versus pneumonia, greater on the right. Signed by: Dr. Nicolas Cornejo M.D. on 11/16/2018 1:39 PM
[2018-11-16 13:45] LABS: INR 1.4; PROTHROMBIN TIME 17.7 seconds (11.9-14.5)
[2018-11-16 13:46] LABS: PARTIAL THROMBOPLASTIN TIME 40.2 seconds (23.8-35.5)
[2018-11-16] MEDS ORDERED: CARVEDILOL3.125 MG PO (13:50)
[2018-11-16] MEDS ORDERED: FUROSEMIDE40 MG PO (13:50)
[2018-11-16] MEDS ORDERED: WARFARIN SODIUM3 MG PO (13:50)
[2018-11-16] MEDS ORDERED: DIGOXIN250 MCG PO (13:50)
[2018-11-16 13:53] LABS: ALANINE AMINOTRANSFERASE 14 IU/L (0-55); ALBUMIN 2.7 g/dL (3.5-5.0); ALBUMIN/GLOBULIN RATIO 0.6 (0.8-2.0); ALKALINE PHOSPHATASE 113 IU/L (40-150); ANION GAP 11.5 mmol/L (8-16); BLOOD UREA NITROGEN 11 mg/dL (7-26); BUN/CREATININE RATIO 14 (6-25); CALCIUM 8.7 mg/dL (8.4-10.2); CARBON DIOXIDE 26 mmol/L (22-29); CHLORIDE 96 mmol/L (98-107); CREATINE KINASE 40 IU/L (30-200); CREATININE, SERUM 0.77 mg/dL (0.72-1.25); EST GLOMERULAR FILTRATION RATE > 60 ML/MIN (60-); GLUCOSE 93 mg/dL (74-118); POTASSIUM 3.5 mmol/L (3.5-5.1); SODIUM 130 mmol/L (136-145)
[2018-11-16] MEDS ORDERED: DIGOXIN INJ 0.25 MG/ML 2 ML AMP IV ONE ×2 (14:00→14:45)
[2018-11-16] MEDS ORDERED: FUROSEMIDE INJ 10 MG/ML 4 ML VIAL IV ONE (14:45)
[2018-11-16 15:27] LABS: ABG HCO3 31 mmol/L (23-28); ABG PCO2 52 mmHg (41-51); ABG PH 7.38 (7.31-7.41); ABG PO2 115 mmHg (80-105)
[2018-11-16] MEDS ORDERED: ETOMIDATE 2 MG/ML 10 ML INJ IV STA (16:44)
--- NOTE | 2018-11-16 16:58 | NUR ---
PT URINE OUTPUT POST CANTU CATHETER PLACEMETN 1000 CC
[2018-11-16 17:03] LABS: BILIRUBIN,URINE NEGATIVE (NEGATIVE); CLARITY,URINE CLEAR (CLEAR); COLOR,URINE YELLOW (YELLOW); KETONES,URINE NEGATIVE (NEGATIVE); LEUKOCYTE ESTERASE ,URINE NEGATIVE (NEGATIVE); NITRITE,URINE NEGATIVE (NEGATIVE); PROTEIN,URINE DIPSTICK 1+ (NEGATIVE); URINE UROBILINOGEN 0.2 mg/dL (0.2 - 1)
[2018-11-16] MEDS ORDERED: PROPOFOL IV EMULSION 10MG/ML 100 ML ONE (17:03)
[2018-11-16 17:05] LABS: AMPHETAMINES SCREEN,URINE NEGATIVE (NEGATIVE); BENZODIAZEPINES SCREEN,URINE NEGATIVE (NEGATIVE); PHENCYCLIDINE SCREEN,URINE NEGATIVE (NEGATIVE)
[2018-11-16 17:15] LABS: EPITHELIAL CELLS,URINE FEW /LPF
[2018-11-16 17:16] LABS: RBC,URINE 0-5 /HPF (0-5); WBC,URINE (MAN) 0-5 /HPF (0-5)
[2018-11-16] MEDS ORDERED: PROPOFOL IV EMULSION 10MG/ML 100 ML IV STA (17:22)
[2018-11-16] MEDS ORDERED: SUCCINYLCHOLINE 200 MG/10 ML SYR IV ONE (17:30)
--- NOTE | 2018-11-16 17:37 | Diagnostic Imaging Report ---
Examination: Single AP view of the chest. COMPARISON: None. INDICATION: Shortness of breath DISCUSSION: Lines/tubes: Endotracheal tube 3 cm above the luis. Lungs: Low lung volume. Bilateral pleural effusions with adjacent airspace opacifications. Heart and mediastinum: The heart and the mediastinum are unremarkable. Bones and soft tissues: No acute bony abnormalities. IMPRESSION: Bilateral pleural effusions with lower lung atelectasis versus pneumonia, greater on the right. Signed by: Dr. Nicolas Cornejo M.D. on 11/16/2018 5:33 PM
[2018-11-16] MEDS ORDERED: SODIUM CHLORIDE FLUSH 10 ML SYR INJ PRN (18:15)
[2018-11-16] MEDS ORDERED: MIDAZOLAM HCL 2 MG/2 ML VIAL ONE (18:21)
[2018-11-16] MEDS ORDERED: MIDAZOLAM HCL 2 MG/2 ML VIAL IV ONE ×2 (18:30)
--- NOTE | 2018-11-16 18:55 | Diagnostic Imaging Report ---
Examination: Single AP view of the chest. COMPARISON: 11/16/2018 INDICATION: November 16, 2018 DISCUSSION: Lines/tubes: Endotracheal tube 4 cm above the luis. Left IJ catheter with tip overlying the cavoatrial junction. Lungs: Low lung volume. Bilateral pleural effusions with adjacent airspace opacifications. Heart and mediastinum: The heart and the mediastinum are unremarkable. Bones and soft tissues: No acute bony abnormalities. IMPRESSION: Stable bilateral pleural effusions with lower lung atelectasis versus pneumonia, greater on the right. Signed by: Dr. Nicolas Cornejo M.D. on 11/16/2018 6:52 PM
--- NOTE | 2018-11-16 19:14 | Operative Report ---
DATE OF PROCEDURE: 11/16/2018 SURGEON: Alfie Ariza MD PROCEDURE: Central line placement under ultrasound guidance. PREOPERATIVE DIAGNOSIS: Congestive heart failure. POSTOPERATIVE DIAGNOSIS: Congestive heart failure. CONSENT: Procedure was considered emergent after the patient's presentation to the emergency department and lack of IV access. ANESTHESIA: 1% lidocaine was used for local anesthesia. PROCEDURE IN DETAIL: The patient was placed in a supine position. The ultrasound was used to examine the internal jugular veins. The patient had a small right internal jugular vein, but a large left internal jugular vein. The left neck was then prepped sterilely between the heads of the sternocleidomastoid and lateral to the carotid artery. 1% lidocaine was used to localize the area. A full length sterile drape was used along with a sterile gown and sterile gloves. A 16-gauge needle was used to cannulate the left internal jugular vein under direct visualization with ultrasound. Wire was then passed through the needle and a dilator was used to dilate the skin. A triple-lumen catheter was then placed over the wire by the Seldinger technique. All the ports flushed. COMPLICATIONS: None. ESTIMATED BLOOD LOSS: 5 mL. Alfie Ariza MD [facility] /[id number]
--- NOTE | 2018-11-16 19:19 | History and Physical ---
CHIEF COMPLAINT: Hypercapnic respiratory failure. HISTORY OF PRESENT ILLNESS: The patient is a 48-year-old man. He has a vague history of a pulmonary embolism. He also carries a diagnosis of atrial fibrillation and prior congestive heart failure. According to the history obtained from the emergency department staff, he was staying in his truck when he developed anxiety and difficulty breathing. He did not have any chest pain. He denied any fever or cough. While in the emergency department, he became more somnolent and less responsive. A blood gas was performed, which showed an elevated CO2 and acidosis. He required intubation. PAST SURGICAL HISTORY: Unknown. PAST MEDICAL HISTORY: 1. Prior pulmonary embolism. 2. Atrial fibrillation. 3. History of congestive heart failure. SOCIAL HISTORY: The patient reports some type of drinking history. There is no reported history of smoking or illicit drug use. REVIEW OF SYSTEMS: The patient denied any fevers. No headache. He did not have chest pain. He had difficulty breathing. He had no abdominal pain. There was no nausea or vomiting. He had some pruritus and skin rash. He had no focal neurological complaints. PHYSICAL EXAMINATION: VITAL SIGNS: The patient is afebrile. The blood pressure is 128/90 and the pulse is 76. Respiratory rate is 16 and the saturation is 100% on an assist-control mode of ventilation. HEENT: Shows no facial swelling or erythema. The patient has an oral endotracheal tube in place. He has a left IJ line in good position. The site looks clean. CARDIAC: Reveals regular rate and rhythm with a normal S1 and S2. LUNGS: Auscultation of lungs reveals decreased breath sounds at the bases. There is no wheezing. The. ABDOMEN: Soft and nontender. There is no rebound or guarding. EXTREMITIES: Show no leg edema or calf tenderness. There is no cyanosis clubbing. SKIN: Shows no rashes. NEUROLOGICAL: Shows no focal abnormalities. LABORATORY DATA: White blood cell count is 8.67 and the hemoglobin is 11.6. The platelet count is 388. The BUN to creatinine ratio is 11:0.77. Sodium is 130 and the potassium is 3.5. The BNP is 2580. The total bilirubin is 1.7. Toxicology screen is negative. Urinalysis is negative. RADIOGRAPHIC DATA: Shows some bibasilar infiltrates with small pleural effusions. IMPRESSION: 1. Acute on chronic respiratory failure. 2. Acute on chronic systolic congestive heart failure. 3. Atrial fibrillation. 4. Hyponatremia. 5. Hypokalemia. 6. History of pulmonary embolism. PLAN: 1. The patient will receive diuretics. 2. Continue digoxin and carvedilol. 3. Echocardiogram and Cardiology consultation. 4. Begin antibiotics to cover for community-acquired pneumonia and obtain cultures. 5. Repeat chest x-ray and laboratory values in the morning. MD LEONIDAS Rudolph/ALBERTOL /[id number]
[2018-11-16] MEDS ORDERED: AZITHROMYCIN 500MG/NS 250 ML 250 ML IV SCH (19:30)
[2018-11-16] MEDS ORDERED: ENOXAPARIN SODIUM INJ 100 MG/ML SYR SC SCH (21:00)
[2018-11-16] MEDS: FENTANYL CITRATE INJ 2,000 MCG in SODIUM CHLORIDE 0.9% 250ML 210 ML IV PRN (21:20)
--- NOTE | 2018-11-16 21:30 | NUR ---
Patient is intubated and sedated with no family present. Unable to complete Family History Intervention and Vaccine Screening Assessment at this time.
[2018-11-16] MEDS: CEFTRIAXONE SOD 1 GM/NS 50 ML 50 ML IV SCH (21:55)
[2018-11-16] MEDS: ENOXAPARIN SOD INJ 60 MG/0.6 ML SYR SC SCH (21:55)
[2018-11-16] MEDS: LORAZEPAM INJ 2 MG/ML VIAL IV PRN (22:55)
[2018-11-17] VITALS (50 sets, daily range): BP systolic 96–123; BP diastolic 71–94
[2018-11-17] MEDS ORDERED: POTASSIUM CHLORIDE 20 MEQ TAB CR PO STA (01:11)
[2018-11-17 05:12] LABS: BASOPHILS # (AUTO) 0.1 (0.0-0.1); EOSINOPHILS # (AUTO) 0.6 (0.0-0.4); EOSINOPHILS % 7.7 % (0.0-6.0); HEMATOCRIT 35.2 % (38.2-49.6); HEMOGLOBIN 11.6 g/dL (14.0-18.0); LYMPHOCYTES # (AUTO) 1.4 (1.0-3.2); LYMPHOCYTES % 16.6 % (18.0-39.1); MEAN CORPUSCULAR HEMOGLOBIN 30.4 pg (28-32); MEAN CORPUSCULAR VOLUME 92.4 fL (81-99); MONOCYTES # (AUTO) 0.7 (0.2-0.8); NEUTROPHILS # (AUTO) 5.4 (2.1-6.9); NEUTROPHILS % 65.2 % (38.7-80.0); PLATELET COUNT 333 x10e3/uL (140-360); RED BLOOD COUNT 3.81 x10e6/uL (4.3-5.7); RED CELL DISTRIBUTION WIDTH 17.2 % (11.7-14.4)
[2018-11-17 05:23] LABS: INR 1.37; PROTHROMBIN TIME 17.5 seconds (11.9-14.5)
[2018-11-17 05:38] LABS: ALANINE AMINOTRANSFERASE 12 IU/L (0-55); ALBUMIN 2.3 g/dL (3.5-5.0); ALBUMIN/GLOBULIN RATIO 0.6 (0.8-2.0); ALKALINE PHOSPHATASE 98 IU/L (40-150); ANION GAP 10.2 mmol/L (8-16); BLOOD UREA NITROGEN 9 mg/dL (7-26); BUN/CREATININE RATIO 13 (6-25); CALCIUM 8.3 mg/dL (8.4-10.2); CARBON DIOXIDE 30 mmol/L (22-29); CHLORIDE 100 mmol/L (98-107); EST GLOMERULAR FILTRATION RATE > 60 ML/MIN (60-); GLUCOSE 66 mg/dL (74-118); POTASSIUM 3.2 mmol/L (3.5-5.1)
[2018-11-17 05:45] LABS: SODIUM 137 mmol/L (136-145)
--- NOTE | 2018-11-17 06:04 | NUR ---
Spoke to Maya at Dr. Mathew's answering service to notify of consult.
--- NOTE | 2018-11-17 06:44 | Diagnostic Imaging Report ---
EXAMINATION: CHEST SINGLE (PORTABLE) INDICATION: ^CHF COMPARISON: Chest x-ray 11/16/2018. FINDINGS: AP view TUBES and LINES: Endotracheal tube, left IJ central line, nasogastric tube remain in good position. LUNGS: Lungs are not well inflated. There are bibasilar atelectasis. Pulmonary edema. PLEURA: Large right and moderate left pleural effusions. HEART AND MEDIASTINUM: The cardiomediastinal silhouette is unremarkable. BONES AND SOFT TISSUES: No acute osseous lesion. Soft tissues are unremarkable. UPPER ABDOMEN: No free air under the diaphragm. IMPRESSION: Unchanged pulmonary edema with large right and moderate left pleural effusions. Signed by: Dr. Art Sepulveda M.D. on 11/17/2018 6:41 AM
--- NOTE | 2018-11-17 06:46 | Diagnostic Imaging Report ---
EXAM: Abdomen 1 Views INDICATION: ^OGT placement COMPARISON: Chest x-ray 11/17/2018. FINDINGS: Mild amount of stool in the colon. No dilated loops of small bowel. No renal calculi. NG/OG tube tip is in the stomach. No abnormal soft tissue masses. No significant degenerative changes in the lumbar spine and pelvis. IMPRESSION: NG/NG tube in the stomach. Signed by: Dr. Art Sepulveda M.D. on 11/17/2018 6:42 AM
[2018-11-17 06:57] LABS: CREATINE KINASE MB 0.7 ng/mL (0-5.0)
[2018-11-17] MEDS: FENTANYL CITRATE INJ 2,000 MCG in SODIUM CHLORIDE 0.9% 250ML 210 ML IV PRN ×3 (07:00→18:38)
[2018-11-17] MEDS: DEXTROSE 50% SYRINGE 50 ML IV PRN (08:02)
[2018-11-17] MEDS: POTASSIUM CHLORIDE 20 MEQ TAB CR PO SCH ×2 (09:00→09:49)
[2018-11-17] MEDS: CARVEDILOL 3.125 MG TAB PO SCH ×3 (09:00→17:00)
[2018-11-17] MEDS: DIGOXIN INJ 0.25 MG/ML 2 ML AMP IV SCH (09:48)
[2018-11-17] MEDS: FUROSEMIDE INJ 10 MG/ML 4 ML VIAL IV SCH ×2 (09:48→18:38)
[2018-11-17] MEDS: ENOXAPARIN SOD INJ 60 MG/0.6 ML SYR SC SCH (09:49)
[2018-11-17] MEDS ORDERED: POTASSIUM CHLORIDE 20MEQ/15ML UDC NG ONE (10:30)
--- NOTE | 2018-11-17 10:34 | NUR ---
lovenox held this morning per Dr. Shaffer request. MD at bedside. fentanyl gtt off to attempt sbt for extubation when patient more alert. pt calm and following commands.
[2018-11-17 12:13] LABS: ABG HCO3 32 mmol/L (23-28); ABG PCO2 56 mmHg (41-51); ABG PH 7.36 (7.31-7.41); ABG PO2 94 mmHg (80-105)
--- NOTE | 2018-11-17 12:29 | NUR ---
notified Dr. Ariza this morning of blood glucose results and treatment. okay not to continue to check bg [id number]
[2018-11-17] MEDS: DOXYCYCLINE 100MG/NS 100ML 100 ML IV SCH ×2 (12:31→23:40)
[2018-11-17] MEDS ORDERED: POTASSIUM CHLORIDE 20MEQ/100ML 100 ML IV ONE (12:45)
--- NOTE | 2018-11-17 14:27 | NUR ---
WOUND CARE CONSULTATION - INITIAL EVALUATION Patient admitted from home to ER for Acute Hypercapnic Respiratory Failure DX: Hyponatremia, CHF, PNA, HX: Pulmonary Embolism. Patient NPO at this time. ET tube in pace. WBC8.2 HGB11.6 HCT35.2 NEUT%65.2 [id number] Wound Care Consulted for evaluation of rash throughout body. PATIENT VISIT: Diego Score 14 Alternating Pressure Air Mattress in place set to current weight. Moderate PUP Active Patient able to turn independently when prompted. Left jaw presents with oval area that is red, edges raised. No blisters noted. Trunk, Arms, Legs present with multiple indurated lesions and scarring with irregular pattern. Mostly over knees. Patient confirms wearing shorts and thinks its fleas. Patient has been living in his car prior to admission. Unable to speak at this time but able to nod to yes and no questions. When asked if his car was treated for insects he nods yes. Denies itching at this time. Lesions throughout body appear to be healing. No new areas noted. IMPRESSION: Trunk, BLE, BUE - Insect Bites. Likely combination of ants and./or mosquito bites. Left Jaw - Possible Ringworm. RECOMMENDATION: 1. Trunk, BLE, BUE - Insect Bites. Likely combination of ants and./or mosquito bites. 2. Left Jaw - Possible Ringworm.- Miconazole Cream / Antifungal Cream q12H. 3. Daily baths with Nizoral Shampoo. 4. Turn and Reposition q2h 5. Bilateral Heel Protectors/ Offload Heels with Pillows while in bed. 6. Continue Moderate PUP Protocol. Thank you for consulting with Wound Care. Addendum: 11/17/18 at 1447 by Phan Viera RN Amended: Links added.
--- NOTE | 2018-11-17 14:38 | Progress Note ---
DATE: Pulmonary Critical Care Progress Note SUBJECTIVE: The patient was diuresed about 2.5 L last night. His sedation was held this morning and he was placed on a pressure support of 8 and a CPAP of 3. He is tolerating this well with respiratory rate of 16 and spontaneous tidal volumes of 400 to 500 mL. PHYSICAL EXAMINATION: VITAL SIGNS: The blood pressure is 106/82 and the respiratory rate is 16. Pulse is 102 to 110. HEENT: Shows no facial swelling or erythema. The nasal mucosa is normal. There is a left IJ line in place. The site looks clean. There is no drainage. CARDIAC: Reveals regular rate and rhythm with normal S1, S2. There are no murmurs or rubs. LUNGS: Auscultation of lungs shows decreased breath sounds at the bases. ABDOMEN: Soft, nontender. There is no rebound or guarding. EXTREMITIES: Shows some erythema in the right lower extremity and some mild swelling. He also has some excoriated papules on the legs, suggestive of flea bites. RADIOGRAPHIC DATA: Chest x-ray shows pulmonary edema with large right and moderate left pleural effusions. LABORATORY DATA: The white blood cell count is 8.2 and hemoglobin is 11.6. The platelet count is 333. IMPRESSION: 1. Acute respiratory failure. 2. Acute on chronic systolic congestive heart failure. 3. Atrial fibrillation. 4. Cellulitis of right lower extremity. 5. Remote history of pulmonary embolism. PLAN: 1. Continue spontaneous breathing trial and work towards extubation. 2. Await echocardiogram and cardiology evaluation. 3. Continue diuresis. 4. The patient may require a thoracentesis depending on his progress with diuresis. 5. Change antibiotics to doxycycline and ceftriaxone for better coverage of skin emir. 6. Venous duplex. 7. Case discussed with respiratory, ER, and nursing staff. 8. Greater than 35 minutes in direct critical care time. Alfie Ariza MD [facility]/MIKE /[id number]
[2018-11-17 15:03] LABS: CREATINE KINASE MB 0.7 ng/mL (0-5.0)
--- NOTE | 2018-11-17 16:40 | NUR ---
thoracenthesis completed by radiology, consent signed by dr muñiz and dr nair, no family at bedside or available. pt is intubated and unable to sign for self.
[2018-11-17] MEDS ORDERED: WARFARIN SOD 3 MG TAB PO SCH (17:00)
--- NOTE | 2018-11-17 17:18 | Diagnostic Imaging Report ---
Procedure: Ultrasound-guided right diagnostic and therapeutic thoracentesis. dough brake machine operator: Yasmeen Cain MD Pre-operative diagnosis: Large right pleural effusion Post-operative diagnosis: Moderate right pleural effusion. Conscious Sedation: None Additional Medications: Lidocaine 1% for local anesthesia Contrast used: None Estimated blood loss: <5 cc Blood proximal administered: None Specimens: 1200 cc serous fluid. Implants: None Condition at completion: Stable Disposition: In ICU DISCUSSION: The patient was not consentable, and did not have a healthcare proxy. Two physicians signed the procedural consent form prior to the procedure. The patient was placed in the upright position. The right back was prepped and draped in the standard sterile fashion. A suitable percutaneous intercostal approach to the right pleural space was identified and the overlying skin was infiltrated with 1% lidocaine for local anesthesia. Large right pleural effusion was identified on ultrasound. Then under continuous sonographic guidance, a 5 [place] Yueh needle catheter was advanced into the pleural space. The catheter was advanced off the needle and connected to vacuum bottle with subsequent evacuation of 1200 cc of serous fluid. The catheter was removed and a sterile, occlusive dressing was applied. Postprocedure sonographic image showed residual moderate effusion. The patient tolerated the procedure well without immediate complication. Sample was sent to the lab. IMPRESSION: Ultrasound-guided diagnostic and therapeutic right thoracentesis with evacuation of 1200 cc of serous fluid. Signed by: Dr. Yasmeen Cain MD on 11/17/2018 5:14 PM
--- NOTE | 2018-11-17 17:24 | Diagnostic Imaging Report ---
Examination: Single AP view of the chest. COMPARISON: Chest radiograph 11/17/2018 INDICATION: Post procedure DISCUSSION: Lines/tubes: Nasogastric tube tip near the gastric antrum. Unchanged position of the endotracheal tube. Unchanged position of the left internal jugular central venous catheter with tip in the high SVC. Additional lines and tubes are likely overlying the patient. Artifact noted within the lateral aspect of the radiograph bilaterally. Lungs: Bilateral central and lower lung zone predominant alveolar opacities. Pleura: Bilateral small pleural effusions with significant decrease in size of the previously moderate sized right pleural effusion. No pneumothorax identified. Heart and mediastinum: Enlarged cardiac silhouette. Bones and soft tissues: Unchanged. IMPRESSION: 1. Stable support apparatus with endotracheal tube tip approximately 5.5 cm above the luis. 2. Unchanged cardiomegaly, persistent pulmonary alveolar edema, and decreased now small bilateral pleural effusions. 3. No pneumothorax identified. Signed by: Skyler Ram MD on 11/17/2018 5:21 PM
[2018-11-17] MEDS ORDERED: ETOMIDATE 2 MG/ML 10 ML INJ IV ONE (17:51)
[2018-11-17] MEDS ORDERED: SUCCINYLCHOLINE CHLORIDE 20 MG/ML 10ML VIAL ONE (17:51)
[2018-11-17 19:16] LABS: BODY FLUID APPEARANCE TURBID; BODY FLUID COLOR STRAW; BODY FLUID TYPE PLEURAL
[2018-11-17 19:59] LABS: RBC,BODY FLUID 197 cells/uL; WBC,BODY FLUID 170 cells/uL
[2018-11-17 20:31] LABS: EOSINOPHILS,BODY FLUID 28 %; LYMPHOCYTES,BODY FLUID 15 %; MONO/MACROPHG,BODY FLUID 50 %; NEUTROPHILS,BODY FLUID 7 %
[2018-11-17] MEDS: CEFTRIAXONE SOD 1 GM/NS 50 ML 50 ML IV SCH (21:20)
[2018-11-17] MEDS: LORAZEPAM INJ 2 MG/ML VIAL IV PRN (21:20)
[2018-11-18] VITALS (37 sets, daily range): BP systolic 93–120; BP diastolic 64–92
--- NOTE | 2018-11-18 00:19 | Consultation ---
DATE OF CONSULTATION: 11/17/2018 Cardiology Consultation. Thank you, Dr. Alfie Ariza, for this cardiac consultation. IMPRESSION: 1. Acute on chronic congestive heart failure. 2. History of pulmonary embolism. 3. Atrial fibrillation. 4. Deep vein thrombosis diagnosed at this time in the right leg. HISTORY OF PRESENT ILLNESS: Ms. Timo Barraza is a pleasant 48-year-old gentleman is seen by Dr. Alfie Ariza in the emergency room on 11/16/2018 and is intubated and also put a central line. The patient has diagnosis of acute congestive heart failure. The patient already received Lasix and most of the history obtained from Dr. Alfie Ariza's H and P and nurse's note, I believe, the patient has no family here. He has some history of alcohol intake and use but, I do not know whether he uses any drugs. According to the history obtained from the chart, he does not use any drugs. I do not know whether he was taking any cardiac medications and I believe there is no history of myocardial infarction. The patient came mainly because of shortness of breath in the emergency room and I saw the patient in ICU in the next day. On the day of admission, Dr. Alfie Ariza managed the patient with the diagnoses. At this time, clinically, the patient is sedated, intubated. Blood pressure 110/80. The patient has chronic atrial fibrillation. The patient is also going to start Lovenox. The patient is going to have a thoracentesis. The patient has a large pleural effusion and also echocardiogram showed ejection fraction of 20%-25%, but no evidence of pericardial effusion noted. No abnormality noted. Troponin is negative. Renal functions are appears to be normal at this time. At this time, his symptoms and further findings are suggestive of early congestive heart failure, and agree with the present treatment orders and I will continue follow up with the patient and if necessary with proper investigations. At this time, I could not see neurological status because sedated, intubated. We will continue present medication ordered. Thank you again for this consultation. Rosemary Mathew MD [facility]/MIKE /[id number]
[2018-11-18] MEDS: DEXTROSE 50% SYRINGE 50 ML IV PRN ×3 (00:55→08:20)
[2018-11-18 05:16] LABS: BASOPHILS # (AUTO) 0.1 (0.0-0.1); BASOPHILS % 0.9 % (0.0-1.0); EOSINOPHILS # (AUTO) 0.8 (0.0-0.4); HEMATOCRIT 36.2 % (38.2-49.6); HEMOGLOBIN 11.9 g/dL (14.0-18.0); LYMPHOCYTES # (AUTO) 1.2 (1.0-3.2); LYMPHOCYTES % 15.8 % (18.0-39.1); MEAN CORPUSCULAR HEMOGLOBIN 30.8 pg (28-32); MEAN CORPUSCULAR HGB CONC 32.9 g/dL (31-35); MEAN CORPUSCULAR VOLUME 93.8 fL (81-99); MONOCYTES % 13.3 % (4.4-11.3); NEUTROPHILS # (AUTO) 4.5 (2.1-6.9); NEUTROPHILS % 59.6 % (38.7-80.0); PLATELET COUNT 310 x10e3/uL (140-360); RED BLOOD COUNT 3.86 x10e6/uL (4.3-5.7); RED CELL DISTRIBUTION WIDTH 17.3 % (11.7-14.4)
[2018-11-18 05:43] LABS: ALANINE AMINOTRANSFERASE 10 IU/L (0-55); ALBUMIN 2.2 g/dL (3.5-5.0); ALBUMIN/GLOBULIN RATIO 0.6 (0.8-2.0); ALKALINE PHOSPHATASE 100 IU/L (40-150); ANION GAP 12.2 mmol/L (8-16); BLOOD UREA NITROGEN 10 mg/dL (7-26); BUN/CREATININE RATIO 13 (6-25); CALCIUM 8.7 mg/dL (8.4-10.2); CARBON DIOXIDE 31 mmol/L (22-29); CHLORIDE 100 mmol/L (98-107); CREATININE, SERUM 0.75 mg/dL (0.72-1.25); EST GLOMERULAR FILTRATION RATE > 60 ML/MIN (60-); GLUCOSE 62 mg/dL (74-118); POTASSIUM 3.2 mmol/L (3.5-5.1); SODIUM 140 mmol/L (136-145)
--- NOTE | 2018-11-18 06:33 | Diagnostic Imaging Report ---
EXAMINATION: CHEST SINGLE (PORTABLE) COMPARISON: Chest x-ray INDICATION: ^CHF ^[id number] ^0530 DISCUSSION: Frontal view of the chest obtained at 0535 hours. HEART AND MEDIASTINUM: Stable cardiomegaly LINES: Endotracheal tube terminates at the clavicle heads, approximately 5 to 6 cm above the luis. Left IJ catheter remains in the SVC. Enteric tube extends past the diaphragm. LUNGS: Increasing right lower lobe atelectasis and associated pleural effusion. Retrocardiac airspace disease is similar. No interstitial edema. PLEURA: No pneumothorax. BONES AND SOFT TISSUES: No focal osseous lesion. The soft tissues are normal. IMPRESSION: Increasing right lower lobe atelectasis. This may be the result of mucus plugging. Small right pleural effusion. Stable retrocardiac airspace disease. Support devices as described above. Signed by: Dr. Rodrigo Wheat MD on 11/18/2018 6:30 AM
--- NOTE | 2018-11-18 06:33 | NUR ---
Dr. Dalia Ariza informed of issues with patient's blood glucose. No new orders at this time.
[2018-11-18] MEDS: FENTANYL CITRATE INJ 2,000 MCG in SODIUM CHLORIDE 0.9% 250ML 210 ML IV PRN (07:00)
[2018-11-18] MEDS: POTASSIUM CHLORIDE 20 MEQ TAB CR PO SCH (08:46)
[2018-11-18] MEDS: FUROSEMIDE INJ 10 MG/ML 4 ML VIAL IV SCH (08:46)
[2018-11-18] MEDS: CARVEDILOL 3.125 MG TAB PO SCH ×2 (08:46→17:22)
[2018-11-18] MEDS: DIGOXIN INJ 0.25 MG/ML 2 ML AMP IV SCH (08:46)
--- NOTE | 2018-11-18 08:48 | NUR ---
per HS RN report, fentanyl gtt off at 0530am. pt sleepy. attempted SBT per MD request. pt apneic when undisturbed. will continue to attempt extubation today per MD order.
[2018-11-18] MEDS ORDERED: KETOCONAZOLE 2% SHAMPOO 4OZ BTL TOP SCH (09:00)
--- NOTE | 2018-11-18 10:12 | NUR ---
attempted to discontinue restraints as pt is following commands. pt removed ett secure tape to try to remove ett himself. RT notified and at bedside. pt restrainted. pt reminded of process of weaning and extubation. attempted cpap with patient on vent. pt falling asleep when not disturbed and rr down to 4 within a minute. the alarms of vent arouses patient who then starts breathing again. will continue the weaning process as pt remains alert without outside stimulation. ETT secured. pt secured and safe.
[2018-11-18] MEDS ORDERED: POTASSIUM CHLORIDE 20MEQ/15ML UDC NG STA (11:48)
[2018-11-18] MEDS: DOXYCYCLINE 100MG/NS 100ML 100 ML IV SCH ×2 (12:30→23:50)
--- NOTE | 2018-11-18 12:44 | Progress Note ---
DATE: Pulmonary Critical Care Progress Note SUBJECTIVE: The patient had an ultrasound-guided thoracentesis yesterday. About a L of fluid was removed. The fluid is consistent with a trans date. The patient was placed on spontaneous breathing trial this morning, but remains sedated and has episodes of apnea at times. PHYSICAL EXAMINATION: VITAL SIGNS: The patient is afebrile. The blood pressure is 93/76 and saturation is 100%. The heart rate is 110 to 120 and irregularly irregular rhythm. HEENT: Shows no facial swelling or erythema. The nasal mucosa is normal. The oropharynx is normal. LYMPHATIC: Shows no submandibular, cervical or supraclavicular adenopathy. CARDIAC: Reveals regular rate and rhythm with normal S1, S2. There are no murmurs or rubs heard. LUNGS: Auscultation of lungs reveals crackles at the bases. There is no wheezing. ABDOMEN: Soft, nontender. There is no rebound or guarding. EXTREMITIES: Show no leg edema or calf tenderness. There is no cyanosis or clubbing. SKIN: Shows no rashes. LABORATORY DATA: White blood cell count is 7.6 and hemoglobin is 11.8. The platelet count is 310. The carbon dioxide is 31, potassium is 3.2 and the other electrolytes are within normal limits. RADIOGRAPHIC DATA: Chest x-ray shows a persistent right lower lobe atelectasis. There is a small right pleural effusion. IMPRESSION: 1. Acute respiratory failure. 2. Acute on chronic systolic congestive heart failure. 3. Atrial fibrillation. 4. Cellulitis of the right lower extremity. 5. Remote history of pulmonary embolism. PLAN: 1. Continue to monitor patient off sedation. We will repeat spontaneous breathing trial later today and work towards extubation. 2. Continue diuresis. 3. Continue current antibiotics. 4. Continue treatment for atrial fibrillation. 5. Case discussed with respiratory and nursing. 6. Greater than 35 minutes in direct critical care time. Alfie Ariza MD [facility]/MODL /[id number]
[2018-11-18] MEDS ORDERED: DEXMEDETOMIDINE HCL 200 MCG in SODIUM CHLORIDE 0.9% 50ML 48 ML IV PRN (13:00)
[2018-11-18] MEDS: KETOCONAZOLE 2% SHAMPOO 4OZ BTL TOP SCH (13:05)
[2018-11-18] MEDS ORDERED: ACETAMINOPHEN 325 MG TAB PO NR (18:00)
[2018-11-18 18:05] LABS: ABG HCO3 34 mmol/L (23-28); ABG PCO2 58 mmHg (41-51); ABG PH 7.38 (7.31-7.41); ABG PO2 119 mmHg (80-105)
[2018-11-18] MEDS ORDERED: SODIUM CHLORIDE 0.9% 250ML 250 ML ONE (18:10)
--- NOTE | 2018-11-18 21:30 | Progress Note ---
DATE: Cardiology Progress Note SUBJECTIVE: The patient is, awake, alert, extubated and the patient came with acute on chronic congestive heart failure. Echo, EF is about 20-25%. Today, I had a some discussion with the patient. I believe the patient was in [facility]. At that time, he was advised to have pacemaker and AICD, somehow he did not follow through. I will try to get old chart from [facility] and would go further if any further evaluation needs to be done we will go ahead; however at this time, patient may need a coronary angiography, if that is done within the last 6 months, there is no need to repeat it. So once I have the results from [facility] [place]. I will be able to do further recommendation. DIAGNOSES: At this time: 1. Acute on chronic congestive heart failure. 2. Respiratory failure, atrial fibrillation, however at this time patient is in sinus rhythm. 3. The patient also has a history of depression and history of DVT and the patient has got DVT in his right leg and also patient has right lung thoracentesis performed yesterday. At this time, we will continue all his current anti-CHF medications and I am adding lisinopril 5 mg once a day. At this time, blood pressure is 110/80, and patient in sinus rhythm. I will continue follow up with Dr. Ariza and I have also talked to the patient in detail tomorrow. I discussed with him about the possibility of angiography and pacemaker/AICD if he is agreeable and if his angiography is not performed within the last 3-6 months, we will schedule or Saturday depending upon his clinical condition. MD ALBERTO Valdez/MIKE /[id number]
[2018-11-18] MEDS: CEFTRIAXONE SOD 1 GM/NS 50 ML 50 ML IV SCH (21:35)
[2018-11-18] MEDS: ENOXAPARIN SOD INJ 60 MG/0.6 ML SYR SC SCH (21:35)
[2018-11-19] VITALS (19 sets, daily range): BP systolic 91–146; BP diastolic 67–99
[2018-11-19 05:24] LABS: BASOPHILS # (AUTO) 0.1 (0.0-0.1); BASOPHILS % 0.8 % (0.0-1.0); EOSINOPHILS # (AUTO) 0.7 (0.0-0.4); EOSINOPHILS % 9.3 % (0.0-6.0); HEMATOCRIT 36.6 % (38.2-49.6); HEMOGLOBIN 11.7 g/dL (14.0-18.0); LYMPHOCYTES # (AUTO) 1.3 (1.0-3.2); LYMPHOCYTES % 17.7 % (18.0-39.1); MEAN CORPUSCULAR HEMOGLOBIN 30.5 pg (28-32); MEAN CORPUSCULAR VOLUME 95.3 fL (81-99); MONOCYTES # (AUTO) 0.9 (0.2-0.8); MONOCYTES % 12.2 % (4.4-11.3); NEUTROPHILS # (AUTO) 4.5 (2.1-6.9); NEUTROPHILS % 59.7 % (38.7-80.0); PLATELET COUNT 309 x10e3/uL (140-360); RED BLOOD COUNT 3.84 x10e6/uL (4.3-5.7); RED CELL DISTRIBUTION WIDTH 17.4 % (11.7-14.4)
[2018-11-19 05:40] LABS: INR 1.28; PROTHROMBIN TIME 16.6 seconds (11.9-14.5)
[2018-11-19 05:53] LABS: ALANINE AMINOTRANSFERASE 9 IU/L (0-55); ALBUMIN 2.2 g/dL (3.5-5.0); ALBUMIN/GLOBULIN RATIO 0.6 (0.8-2.0); ALKALINE PHOSPHATASE 95 IU/L (40-150); ANION GAP 9.3 mmol/L (8-16); BLOOD UREA NITROGEN 12 mg/dL (7-26); BUN/CREATININE RATIO 17 (6-25); CALCIUM 8.5 mg/dL (8.4-10.2); CARBON DIOXIDE 31 mmol/L (22-29); CHLORIDE 100 mmol/L (98-107); EST GLOMERULAR FILTRATION RATE > 60 ML/MIN (60-); GLUCOSE 103 mg/dL (74-118); POTASSIUM 3.3 mmol/L (3.5-5.1); SODIUM 137 mmol/L (136-145)
--- NOTE | 2018-11-19 06:05 | Diagnostic Imaging Report ---
EXAMINATION: CHEST SINGLE (PORTABLE) COMPARISON: Chest x-ray 11/18/18 INDICATION: ^RLL Atelectasis ^[id number] ^0515 DISCUSSION: Frontal view of the chest obtained at 0535 hours. HEART AND MEDIASTINUM: Stable cardiomegaly and tortuous aorta LINES: Left IJ catheter remains in the SVC. Endotracheal tube and enteric tube have been removed. LUNGS: Low lung volumes with prominence of the pulmonary vasculature and hazy airspace opacities in the mid and lower lung zones. PLEURA: No pneumothorax. Costophrenic angles are blunted. BONES AND SOFT TISSUES: No focal osseous lesion. The soft tissues are normal. IMPRESSION: Status post extubation. Low lung volumes, bibasilar atelectasis and pleural effusions. Pneumonia cannot be excluded. Cardiomegaly and pulmonary vascular congestion. Signed by: Dr. Rodrigo Wheat MD on 11/19/2018 6:01 AM
[2018-11-19] MEDS: CARVEDILOL 3.125 MG TAB PO SCH ×2 (08:00→17:09)
[2018-11-19] MEDS: LISINOPRIL 2.5 MG TAB PO SCH (09:00)
[2018-11-19] MEDS: FUROSEMIDE INJ 10 MG/ML 4 ML VIAL IV SCH (10:00)
[2018-11-19] MEDS: ENOXAPARIN SOD INJ 60 MG/0.6 ML SYR SC SCH ×2 (10:00→20:22)
[2018-11-19] MEDS: POTASSIUM CHLORIDE 20 MEQ TAB CR PO SCH (10:00)
[2018-11-19] MEDS: DIGOXIN INJ 0.25 MG/ML 2 ML AMP IV SCH (10:00)
[2018-11-19] MEDS: DOXYCYCLINE 100MG/NS 100ML 100 ML IV SCH ×2 (12:07→23:44)
--- NOTE | 2018-11-19 15:52 | NUR ---
RECEIVED PT TO ROOM 105 VIA BED. PT IS AAOX3 NO COMPLAINTS AT THIS TIME. RESPIRATIONS EVEN AND NON LABORED ON 2LNC. TELE BOX #18 AFIB 98. CALL LIGHT WITHIN REACH. BED LOCKED AND IN LOWEST POSITION. INSTRUCTED TO CALL FOR ASSISTANCE. WILL CONTINUE TO MONITOR.
[2018-11-19] MEDS: WARFARIN SOD 3 MG TAB PO SCH (16:34)
--- NOTE | 2018-11-19 17:16 | NUR ---
NOTIFIED DR. IVAN PT STATES HE IS NOT READY TO SIGN CONSENT FOR HEART CATH AND WANTS TO HEAR MORE ABOUT THE PROCEDURE. DR. IVAN STATES HE WILL SPEAK TO PT TOMORROW MORNING.
--- NOTE | 2018-11-19 18:05 | Progress Note ---
DATE: 11/19/2018 Cardiology Progress Note Thank you, Dr. Ariza. I have seen this patient three days ago. DIAGNOSES: 1. Acute on chronic congestive heart failure. 2. Cardiomyopathy, rule out coronary artery disease. 3. The patient does not take care of himself. 4. The patient had a thoracentesis of right lung. The patient improved very much. The patient on beta-dominguez, anti-CHF medication, and also JEFFERSON inhibitors, the patient improved very much. The patient was recently in the [facility] over the last two months. We are trying to get the medical records today and I am planning to do coronary angiography tomorrow, see rule out any significant coronary artery disease, and I was told by the patient that they are about to put possibly AICD, but he did not go and have it done, so if the coronary angiogram is normal, probably we will go ahead with AICD on Saturday. However, I asked his medical records yesterday and today also, they are trying to get it from [facility] to see if there were any angiogram performed and whether any cardiac investigation performed in the past. The patient at this time is in stable condition. MD ALBERTO Valdez/MIKE /[id number]
--- NOTE | 2018-11-19 18:55 | NUR ---
BEDSIDE SHIFT REPORT PERFORMED WITH David MULLEN RN. PT IN BATHROOM AT THIS TIME, AAOX3, RR EVEN AND NON-LABORED, ON RA. NO S/SX OF DISTRESS NOTED. PCT AT BEDSIDE. LEFT PT IN BATHROOM WITH PCT AT SIDE.
[2018-11-19] MEDS: CEFTRIAXONE SOD 1 GM/NS 50 ML 50 ML IV SCH (20:17)
[2018-11-19] MEDS: KETOCONAZOLE 2% SHAMPOO 4OZ BTL TOP SCH (23:10)
[2018-11-19] MEDS ORDERED: SODIUM CHLORIDE 0.9% 250ML 250 ML ONE (23:39)
[2018-11-20] VITALS (10 sets, daily range): BP systolic 101–146; BP diastolic 53–86
[2018-11-20 05:55] LABS: BASOPHILS # (AUTO) 0.1 (0.0-0.1); BASOPHILS % 0.8 % (0.0-1.0); EOSINOPHILS # (AUTO) 0.7 (0.0-0.4); EOSINOPHILS % 9.3 % (0.0-6.0); HEMATOCRIT 36.7 % (38.2-49.6); LYMPHOCYTES # (AUTO) 1.4 (1.0-3.2); LYMPHOCYTES % 18.8 % (18.0-39.1); MEAN CORPUSCULAR HEMOGLOBIN 30.3 pg (28-32); MEAN CORPUSCULAR HGB CONC 32.7 g/dL (31-35); MEAN CORPUSCULAR VOLUME 92.7 fL (81-99); MONOCYTES # (AUTO) 0.9 (0.2-0.8); MONOCYTES % 11.9 % (4.4-11.3); NEUTROPHILS # (AUTO) 4.5 (2.1-6.9); NEUTROPHILS % 58.9 % (38.7-80.0); PLATELET COUNT 310 x10e3/uL (140-360); RED BLOOD COUNT 3.96 x10e6/uL (4.3-5.7); RED CELL DISTRIBUTION WIDTH 17.2 % (11.7-14.4)
[2018-11-20 05:57] LABS: INR 1.23; PROTHROMBIN TIME 16.1 seconds (11.9-14.5)
[2018-11-20 06:05] LABS: ALANINE AMINOTRANSFERASE 10 IU/L (0-55); ALBUMIN 2.2 g/dL (3.5-5.0); ALBUMIN/GLOBULIN RATIO 0.5 (0.8-2.0); ALKALINE PHOSPHATASE 89 IU/L (40-150); ANION GAP 10.7 mmol/L (8-16); BLOOD UREA NITROGEN 9 mg/dL (7-26); BUN/CREATININE RATIO 13 (6-25); CALCIUM 8.7 mg/dL (8.4-10.2); CARBON DIOXIDE 31 mmol/L (22-29); CHLORIDE 101 mmol/L (98-107); CREATININE, SERUM 0.67 mg/dL (0.72-1.25); EST GLOMERULAR FILTRATION RATE > 60 ML/MIN (60-); GLUCOSE 79 mg/dL (74-118); POTASSIUM 3.7 mmol/L (3.5-5.1); SODIUM 139 mmol/L (136-145)
--- NOTE | 2018-11-20 07:28 | Diagnostic Imaging Report ---
EXAMINATION: CHEST 2 VIEWS COMPARISON: Chest x-ray 11/19/2018. INDICATION: CHF DISCUSSION: LINES: Left IJ central venous catheter terminates in the expected location of the mid SVC. LUNGS/PLEURA: Moderate lung volumes. There are decreasing small bilateral pleural effusions and opacities at the lung bases. Interval resolution of bilateral interstitial opacities. No evidence of pneumothorax. HEART AND MEDIASTINUM: Stable cardiomegaly and tortuous aorta. BONES AND SOFT TISSUES: No acute osseous susceptibility. IMPRESSION: Cardiomegaly with resolution of pulmonary edema. Decreasing bilateral pleural effusions and bibasilar opacities, likely atelectasis. Signed by: Dr. Yasmeen Cain MD on 11/20/2018 7:25 AM
[2018-11-20] MEDS: ENOXAPARIN SOD INJ 60 MG/0.6 ML SYR SC SCH ×3 (08:02→13:32)
--- NOTE | 2018-11-20 08:50 | NUR ---
RECEIVED CALL FROM DR. IVAN STATES HEART CATH IS RESCHEDULED FOR TOMORROW AND PT CAN EAT.
[2018-11-20] MEDS: LISINOPRIL 2.5 MG TAB PO SCH (09:00)
[2018-11-20] MEDS: FUROSEMIDE INJ 10 MG/ML 4 ML VIAL IV SCH (10:00)
[2018-11-20] MEDS: DIGOXIN INJ 0.25 MG/ML 2 ML AMP IV SCH (10:00)
[2018-11-20] MEDS: CARVEDILOL 3.125 MG TAB PO SCH ×2 (10:00→17:00)
[2018-11-20] MEDS: POTASSIUM CHLORIDE 20 MEQ TAB CR PO SCH (10:00)
[2018-11-20] MEDS: DOXYCYCLINE 100MG/NS 100ML 100 ML IV SCH (11:19)
[2018-11-20] MEDS: KETOCONAZOLE 2% SHAMPOO 4OZ BTL TOP SCH (13:23)
[2018-11-20] MEDS: WARFARIN SOD 3 MG TAB PO SCH (13:31)
--- NOTE | 2018-11-20 14:36 | NUR ---
SPOKE WITH PT ABOUT COMMUNITY RESOURCES HE STATES ALL HE WANTS IS FOR ASSISTANCE WITH GETTING SET UP IN A APARTMENT. PT IS 48 YEARS OLD, ON DISABILITY 1350 A MONTH WITH 3 FELONIES. PULLED APARTMENT LIST, REINTRODUCTION PROGRAMS REFERRAL PROGRAMS AND [facility] [place], A LOCAL APARTMENT LISTING FOR APARTMENT RANGING FROM 325 TO 800 A MONTH GAVE THE SELF PAY PACKET, INFORMED HIM OF DIFFERENT ORGANIZATIONS LOCALLY THAT WILL HELP WITH FOOD AND FURNITURE AND CLOTHING TO FOLLOW UP WITH TO SEE IF HE CAN QUALIFY FOR THEIR SERVICES. LEFT CARD AND ASKED TO CALL WITH ANY FURTHER QUESTIONS.
--- NOTE | 2018-11-20 17:01 | Progress Note ---
DATE: Cardiology Progress Note SUBJECTIVE: The patient is seen in the room. Discussed with the patient. He is supposed to have an angiogram today, but somehow he did not sign the consent, so I came again to explain to him and I was able to get some of the old records from [facility], he was admitted in August and probably in June of last year too. This August 2018, he was in the hospital, at that time was admitted for acute pulmonary edema, ejection fraction 20%. At this time, the patient did not have any myocardial infarction. He did not have any coronary angiogram done in the past. He has a cardiomyopathy to make sure it is not ischemic cardiomyopathy, so tomorrow I am doing the angiogram. If the angiogram shows any significant lesions that is suitable for coronary stenting, I will go and do it. If the angiogram does not show any significant lesions, LVEF is 20%, the patient needs an AICD and pacemaker, which I will be able to do on Saturday. I explained to him, the patient agreeable for both the procedures and also agreed that he will take all the antacid medication on a regular basis. I did tell him that putting AICD and pacemaker is not going to solve the problem with the severe congestive heart failure he has. He has to take the medication on regular basis, probably lifelong, slowly the heart function will improve, but for the last 3-4 months, heart function did not improve, states it is slow in spite of taking these medications, so he needs to do an AICD also. The patient is agreeable on both the procedures, which first I will do heart catheterization on Saturday, AICD and pacemaker on Saturday. We will hold the Coumadin today and also hold the Lovenox this evening. MD ALBERTO Valdez/MIKE /[id number]
[2018-11-20 18:10] LABS: INR 1.11; PROTHROMBIN TIME 14.8 seconds (11.9-14.5)
--- NOTE | 2018-11-20 19:00 | NUR ---
BEDSIDE SHIFT REPORT RECEIVED. PT IS AAOX3, RR EVEN AND NON-LABORED, O2 BY NC AT 2L. PT IS SEMI FOWLERS IN BED, NO S/SX OF DISTRESS NOTED. LEFT PT LAYING SEMI FOWLERS IN BED, BED IN LOW LOCKED POSITION, SIDE RAILS UPX2, CALL LIGHT AND PHONE WITHIN REACH.
[2018-11-20] MEDS: CEFTRIAXONE SOD 1 GM/NS 50 ML 50 ML IV SCH (21:01)
[2018-11-21] VITALS (8 sets, daily range): BP systolic 96–134; BP diastolic 52–96
--- NOTE | 2018-11-21 09:04 | NUR ---
DRESSING TO THE LEFT IJ CHANGED IN A STERILE MANNER. DRESSING DATED, CLEAN DRY AND INTACT
[2018-11-21] MEDS ORDERED: MIDAZOLAM HCL 2 MG/2 ML VIAL ONE (09:31)
[2018-11-21] MEDS ORDERED: SODIUM CHLORIDE 0.9% 1000ML 1,000 ML ONE (09:32)
[2018-11-21] MEDS ORDERED: IOPAMIDOL 370 MG/ML 200 ML INFUS..BTL INJ ONE (09:32)
[2018-11-21] MEDS ORDERED: FENTANYL CITRATE/PF 100MCG/2 ML INJ ONE (09:32)
[2018-11-21] MEDS ORDERED: LIDOCAINE HCL 2% LOCAL 20 ML VIAL ONE (09:32)
[2018-11-21] MEDS ORDERED: HEPARIN SOD/SOD CHLORIDE 2,000 ML ONE (09:32)
--- NOTE | 2018-11-21 09:44 | NUR ---
HEART CATH TODAY PACEMAKER SATURDAY
--- NOTE | 2018-11-21 10:20 | NUR ---
PT OF UNIT FOR COMMUNITY RESOURCE OFFICER AT THIS TIME
--- NOTE | 2018-11-21 11:05 | NUR ---
RECEIVED REPORT FROM ANN IN SLP TEACHER . CATH COMPLETE NO INTERVENTIONS DONE. WAITING FOR PT TO ARRIVE TO UNIT
--- NOTE | 2018-11-21 11:05 | NUR ---
Report provided to Teresita ABEL, review of procedural findings and medications given. Patient drowsy, easily aroused. maintains airway and room air saturations of 94-96%. No gross issues of pressure, pain, pallor or dysrhythmia. Central Line site patent and saline locked. patient hemodynamically stable with hemostasis. right groin dressing CDI w/o s/s of bleeding. patient transferred to [facility] w/o incident. Overall skin integrity remains intact. transported to [facility] on telemetry by [facility]] staff- [facility] procedure: Diagnostic Coronary angiography Sheath puller: Pundi Vascade 01/09 to right groin Meds Given Intra-Procedure Sedatives Versed - 1 mg Fentanyl - 25 mcg Anticoagulants NA Fluids Input - 100 ml Output -dtv Contrast Isovue 370 - 80ml Other Meds NA
--- NOTE | 2018-11-21 11:19 | NUR ---
PT BACK FROM INVESTOR RELATIONS ASSOCIATE . RIGHT GROIN IS DRY AND INTACT. PT IS IN NO S.S OF DISTRESS. PULSES PRESENT BILATERALLY TO FEET PT DENIES PAIN. PT IS ON BEDREST UNTIL 1310. PT AWARE WILL CONTINUE TO MONITOR AT THIS TIME, SIDE RAILSX2, BED WHEELS LOCKED, CALL LIGHT IS WITHIN EASY REACH, INSTRUCTED TO CALL FOR ASSISTANCE IF NEEDED
[2018-11-21] MEDS: CARVEDILOL 3.125 MG TAB PO SCH ×2 (11:59→16:19)
[2018-11-21] MEDS: DIGOXIN INJ 0.25 MG/ML 2 ML AMP IV SCH (11:59)
[2018-11-21] MEDS: LISINOPRIL 2.5 MG TAB PO SCH (12:00)
[2018-11-21] MEDS: POTASSIUM CHLORIDE 20 MEQ TAB CR PO SCH (12:00)
[2018-11-21] MEDS: FUROSEMIDE 40 MG TAB PO SCH (12:00)
--- NOTE | 2018-11-21 12:00 | NUR ---
ASSESSED RIGHT GROIN. DRESSING IS DRY AND INTACT PEDAL PULSES PRESENT BILATERALLY
--- NOTE | 2018-11-21 13:07 | NUR ---
DRESSING TO RIGHT GROIN DRY AND INTACT. BILATERAL PEDAL PULSES PRESENT
[2018-11-21] MEDS: KETOCONAZOLE 2% SHAMPOO 4OZ BTL TOP SCH (14:00)
--- NOTE | 2018-11-21 14:06 | NUR ---
Nutrition Screen Note RD Recommendation for Physician: -Continue cardiac diet as ordered Plan of Care: RD following, monitoring for tolerance and adequacy Nutrition reason for involvement: LOS Primary Diagnose(s): 1. Acute on chronic congestive heart failure. 2. Cardiomyopathy, rule out coronary artery disease. PMH: pulmonary embolism, afib, CHF Ht: 68in Wt: 215.25lb BMI: 32.7kg/m2 IBW: 154lb RD Assessment: (11/21) Chart reviewed. Labs and meds reviewed. 48yo M, who was admitted for CHF. Planned for AICD/ pacemaker placement on next Saturday. Bed rest status. Visited pt in the room. Pt reported good appetite prior and during hospital stay. No GI complains reported. LBM 11/20. Pt denied any chewing or swallowing issue. 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 Will continue to monitor and follow. Current Diet: cardiac diet Malnutrition Evaluation (11/21) The patient does not meet criteria for a specified degree of malnutrition at this time. Will re-evaluate at follow-up as appropriate. Diet Education Needs Assessment: Diet education indicated, but not appropriate at this time as pt was on bed rest. Nutrition Care Level: low Signed: Annie Nielsen, MS, RD, LD
--- NOTE | 2018-11-21 14:14 | NUR ---
DRESSING TO RIGHT GROIN DRY AND INTACT. BILATERAL PEDAL PULSES PRESENT
--- NOTE | 2018-11-21 15:11 | Progress Note ---
DATE: Cardiology Progress Note SUBJECTIVE: The patient at this time doing well. I performed a heart catheterization and coronary angiogram. Coronary arteries are normal. Patient echo EF is 20%. Patient has nonischemic cardiomyopathy, mildly dilated left ventricle. At this time, patient needs an AICD, which I am going to do it on Saturday, patient agreed to have it done. Patient needs to stay in the hospital, as tomorrow is a weekend, I would not be able to do the elective cases and the patient will continue all his present cardiac medications and I will follow him very closely. The patient agreed to have his AICD done. I reviewed his old admissions to different hospitals. No coronary angiography was performed. All the time echo EF used to be 20% to 25%. This EF is persistently present in spite of medications for the last four months. That is the reason the patient was going to have an AICD tomorrow. DIAGNOSIS: Nonischemic cardiomyopathy. MD ALBERTO Valdez/MIKE /[id number]
[2018-11-21] MEDS: WARFARIN SOD 3 MG TAB PO SCH (16:19)
[2018-11-21] MEDS: ENOXAPARIN SOD INJ 60 MG/0.6 ML SYR SC SCH (16:19)
[2018-11-21] MEDS: SPIRONOLACTONE 25 MG TAB PO SCH (21:00)
[2018-11-21] MEDS: CEFTRIAXONE SOD 1 GM/NS 50 ML 50 ML IV SCH (21:28)
[2018-11-21] MEDS: NICOTINE 14 MG/EA PATCH TOP SCH (22:45)
[2018-11-22] VITALS (8 sets, daily range): BP systolic 102–128; BP diastolic 59–79
[2018-11-22] MEDS: ENOXAPARIN SOD INJ 60 MG/0.6 ML SYR SC SCH ×2 (04:52→16:41)
[2018-11-22 05:56] LABS: BASOPHILS # (AUTO) 0.1 (0.0-0.1); BASOPHILS % 0.9 % (0.0-1.0); EOSINOPHILS # (AUTO) 0.8 (0.0-0.4); HEMATOCRIT 38.4 % (38.2-49.6); HEMOGLOBIN 12.5 g/dL (14.0-18.0); LYMPHOCYTES # (AUTO) 1.8 (1.0-3.2); LYMPHOCYTES % 22.5 % (18.0-39.1); MEAN CORPUSCULAR HEMOGLOBIN 30.3 pg (28-32); MEAN CORPUSCULAR HGB CONC 32.6 g/dL (31-35); MONOCYTES # (AUTO) 1.1 (0.2-0.8); MONOCYTES % 13.8 % (4.4-11.3); NEUTROPHILS # (AUTO) 4.1 (2.1-6.9); NEUTROPHILS % 52.4 % (38.7-80.0); PLATELET COUNT 306 x10e3/uL (140-360); RED BLOOD COUNT 4.13 x10e6/uL (4.3-5.7); RED CELL DISTRIBUTION WIDTH 17.5 % (11.7-14.4)
[2018-11-22 05:57] LABS: INR 1.14; PROTHROMBIN TIME 15.2 seconds (11.9-14.5)
[2018-11-22 06:12] LABS: ALANINE AMINOTRANSFERASE 11 IU/L (0-55); ALBUMIN 2.4 g/dL (3.5-5.0); ALBUMIN/GLOBULIN RATIO 0.6 (0.8-2.0); ALKALINE PHOSPHATASE 85 IU/L (40-150); ANION GAP 10.2 mmol/L (8-16); BLOOD UREA NITROGEN 9 mg/dL (7-26); BUN/CREATININE RATIO 13 (6-25); CALCIUM 8.9 mg/dL (8.4-10.2); CARBON DIOXIDE 27 mmol/L (22-29); CHLORIDE 105 mmol/L (98-107); CREATININE, SERUM 0.68 mg/dL (0.72-1.25); EST GLOMERULAR FILTRATION RATE > 60 ML/MIN (60-); GLUCOSE 79 mg/dL (74-118); POTASSIUM 4.2 mmol/L (3.5-5.1); SODIUM 138 mmol/L (136-145)
--- NOTE | 2018-11-22 07:05 | NUR ---
PT RESTING IN BED AA0X3. PT IS IN NO S.S. OF DISTRESS DENIES PAIN PT LEFT IJ IS DRY/INTACT AND PATENT PT RIGHT GROIN DRESSING REMAINS CLEAN AND DRY WILL CONTINUE TO MONITOR AT THIS TIME, SIDE RAILSX2, BED WHEELS LOCKED, CALL LIGHT IS WITHIN EASY REACH, INSTRUCTED TO CALL FOR ASSISTANCE IF NEEDED
[2018-11-22] MEDS: CARVEDILOL 3.125 MG TAB PO SCH ×2 (08:25→16:41)
[2018-11-22] MEDS: SPIRONOLACTONE 25 MG TAB PO SCH ×2 (08:25→20:50)
[2018-11-22] MEDS: LISINOPRIL 2.5 MG TAB PO SCH (08:25)
[2018-11-22] MEDS: FUROSEMIDE 40 MG TAB PO SCH (08:25)
[2018-11-22] MEDS: DIGOXIN INJ 0.25 MG/ML 2 ML AMP IV SCH (08:25)
[2018-11-22] MEDS: POTASSIUM CHLORIDE 20 MEQ TAB CR PO SCH (08:25)
[2018-11-22] MEDS: NICOTINE 14 MG/EA PATCH TOP SCH (08:25)
[2018-11-22] MEDS: KETOCONAZOLE 2% SHAMPOO 4OZ BTL TOP SCH (12:01)
--- NOTE | 2018-11-22 13:29 | NUR ---
SPOKE TO MD CASTILLO REGARDING PT C/P OF COUGH. NEW ORDERS RECEIVED FOR PRN ROBITUSSIN
[2018-11-22] MEDS ORDERED: GUAIFENESIN/CODEINE 10 ML CUP PO PRN (13:30)
--- NOTE | 2018-11-22 15:05 | Progress Note ---
DATE: Pulmonary Critical Care Progress Note SUBJECTIVE: The patient had a catheterization yesterday. The coronary arteries are normal. He had a cardiomyopathy with decreased ejection fraction. Today, he has no new complaints. He has no chest pain. His dyspnea is stable. PHYSICAL EXAMINATION: VITAL SIGNS: The patient is afebrile. The vital signs are stable. HEENT: Shows no facial swelling or erythema. The nasal mucosa is normal. CARDIAC: Reveals a regular rate and rhythm with normal S1 and S2. There are no murmurs or rubs heard. LUNGS: Auscultation of lungs reveals decreased breath sounds at the bases. There is no wheezing. ABDOMEN: Soft, nontender. There is no rebound or guarding. EXTREMITIES: Show no leg edema or calf tenderness. There is no cyanosis, clubbing. SKIN: Shows no rashes. IMPRESSION: 1. [id number]-[id number] congestive heart failure. 2. Atrial fibrillation. 3. Deep vein thrombosis. PLAN: 1. The patient is awaiting pacemaker on Saturday. 2. Continue diuretics. 3. Monitor electrolytes and CBC. 4. Continue Lovenox until INR therapeutic. Alfie Ariza MD [facility]/MODL /[id number]
[2018-11-22] MEDS: WARFARIN SOD 3 MG TAB PO SCH (16:41)
--- NOTE | 2018-11-22 19:25 | NUR ---
Patient is A&Ox3. Lungs clear. Bowel sounds active. Dressing to R groin is clean, dry, and intact. Patient reports no pain at this time. L IJ triple lumen is asymptomatic, intact, and patent. No S&S of distress noted. Bed locked in lowest position, call light in reach.
--- NOTE | 2018-11-22 20:17 | Progress Note ---
DATE: Cardiology Progress Note SUBJECTIVE: The patient is seen in the room. The patient is awake, alert. No evidence of an acute congestive heart failure. The patient underwent a coronary angiogram yesterday. His coronary arteries are normal. Echo EF 20% to 25%. The patient came with acute pulmonary edema. He was intubated and he was on respirator for [address] Ariza followed the patient very closely in ICU. The patient improved very much and the patient returned to floor. At this time because of low ejection fraction about 20%, which is there for more than 3 months, I am going to put AICD and pacemaker on Saturday. The patient is agreeable to have this procedure done. I discussed the risks, complications, and benefits of procedure and importance of taking all anti-CHF medication on regular basis. The patient is agreeable with plan. DIAGNOSES: 1. Nonischemic cardiomyopathy, ejection fraction 20%. 2. Presented with acute pulmonary edema. 3. I reviewed all old chart that available for last four months. The patient couple of times was admitted with acute pulmonary edema. At that time, also advised he has a pacemaker. He did not follow through. At this time, he agreed to have this procedure done. MD ALBERTO Valdez/MIKE /[id number]
[2018-11-22] MEDS: CEFTRIAXONE SOD 1 GM/NS 50 ML 50 ML IV SCH (20:50)
[2018-11-23] VITALS (7 sets, daily range): BP systolic 103–137; BP diastolic 69–90
--- NOTE | 2018-11-23 00:17 | NUR ---
PATIENT SLEEPING. NO S/S OF DISTRESS OBSERVED. BED LOCKED AND IN LOWEST POSITION, CALL LIGHT WITHIN EASY REACH.
--- NOTE | 2018-11-23 03:30 | NUR ---
PATIENT COULD BE HEARD SHOUTING FROM HALLWAY. ENTERED ROOM AND PATIENT WAS IN BED HOLLERING AND CURSING. ATTEMPTED TO REORIENTATE PATIENT, PATIENT STATED "I'LL STOP TALKING SOON." BUT BEGAN HOLLERING AND CURSING RACIAL SLURS, HOMOSEXUALITY SLURS, GIBBERISH ABOUT THE GOVERNMENT. ORIENTATED PATIENT AGAIN TO SELF, PLACE, AND TIME. PATIENT NOW CALM.
[2018-11-23] MEDS ORDERED: ENOXAPARIN SOD INJ 60 MG/0.6 ML SYR SC NR (04:00)
[2018-11-23 06:07] LABS: BASOPHILS # (AUTO) 0.1 (0.0-0.1); EOSINOPHILS # (AUTO) 0.8 (0.0-0.4); EOSINOPHILS % 10.6 % (0.0-6.0); HEMATOCRIT 39.2 % (38.2-49.6); LYMPHOCYTES # (AUTO) 1.8 (1.0-3.2); MEAN CORPUSCULAR HEMOGLOBIN 30.4 pg (28-32); MEAN CORPUSCULAR HGB CONC 33.2 g/dL (31-35); MEAN CORPUSCULAR VOLUME 91.6 fL (81-99); MONOCYTES # (AUTO) 1.1 (0.2-0.8); MONOCYTES % 13.7 % (4.4-11.3); NEUTROPHILS # (AUTO) 4.1 (2.1-6.9); NEUTROPHILS % 51.4 % (38.7-80.0); PLATELET COUNT 303 x10e3/uL (140-360); RED BLOOD COUNT 4.28 x10e6/uL (4.3-5.7); RED CELL DISTRIBUTION WIDTH 17.6 % (11.7-14.4)
[2018-11-23 06:25] LABS: ALANINE AMINOTRANSFERASE 12 IU/L (0-55); ALBUMIN 2.4 g/dL (3.5-5.0); ALBUMIN/GLOBULIN RATIO 0.5 (0.8-2.0); ALKALINE PHOSPHATASE 90 IU/L (40-150); BLOOD UREA NITROGEN 9 mg/dL (7-26); BUN/CREATININE RATIO 13 (6-25); CALCIUM 9.1 mg/dL (8.4-10.2); CARBON DIOXIDE 22 mmol/L (22-29); CHLORIDE 105 mmol/L (98-107); EST GLOMERULAR FILTRATION RATE > 60 ML/MIN (60-); GLUCOSE 78 mg/dL (74-118); SODIUM 137 mmol/L (136-145)
[2018-11-23 06:37] LABS: INR 1.11; PROTHROMBIN TIME 14.8 seconds (11.9-14.5)
[2018-11-23] MEDS: FUROSEMIDE 40 MG TAB PO SCH (07:43)
[2018-11-23] MEDS: LISINOPRIL 2.5 MG TAB PO SCH (07:43)
[2018-11-23] MEDS: DIGOXIN INJ 0.25 MG/ML 2 ML AMP IV SCH (07:45)
[2018-11-23] MEDS: NICOTINE 14 MG/EA PATCH TOP SCH (08:10)
[2018-11-23] MEDS: POTASSIUM CHLORIDE 20 MEQ TAB CR PO SCH (08:10)
[2018-11-23] MEDS: SPIRONOLACTONE 25 MG TAB PO SCH ×2 (08:10→21:10)
[2018-11-23] MEDS: CARVEDILOL 3.125 MG TAB PO SCH ×2 (08:10→16:38)
--- NOTE | 2018-11-23 09:20 | NUR ---
ALERTED MD CASTILLO UPON HIS DAILY ROUNDS OF PT EPISODES OF IRRATIONAL THINKING AND DISORGANIZED THOUGHTS REPORTED BY COMPUTER NETWORK ENGINEER NURSE MD CASTILLO IS AWARE OF PT MENTAL ALERTNESS AND STATES PT WILL PBLY NOT APPROVE TO SEE A PSYCHIATRIST AT THIS TIME UPON ENTERING PT ROOM TODAY PT REPORTED C/O NO SLEEP AT THIS NIGHT DUE TO BAD SMELLS IN ROOM. WHEN ASKED TO DESCRIBE SMELL, HE STATED SMELLING A "BLACK QUEER MAN" AND WENT OFF STATING MULTIPLE DISORGANIZED THOUGHTS THAT INCLUDED BILLS THAT HE NEEDED TO PAY OFF. STATED WE DID NOT WANT THE PACEMAKER PLACEMENT, THEN RAPIDLY CHANGED HIS MIND ABOUT HAVING THE PROCEDURE. INSTRUCTED PT TO MAKE STARCH CRAB AWARE DURING ROUNDS TODAY OF CONCERNS FOR PROCEDURE SCHEDULED TOMORROW PT HOWEVER IS AA0X3 (AWARE OF NAME, , LOCATION, AND TIME) LEFT CALL LIGHT WITHIN EASY REACH, INSTRUCTED TO CALL FOR ASSISTANCE IF NEEDED
[2018-11-23] MEDS: KETOCONAZOLE 2% SHAMPOO 4OZ BTL TOP SCH (13:34)
[2018-11-23] MEDS: WARFARIN SOD 3 MG TAB PO SCH (15:41)
--- NOTE | 2018-11-23 19:40 | NUR ---
Patient is resting in bed at this time. A&Ox3. Patient is calm at the moment. Reports no pain. Does not acknowledge staff unless directly asked a question. Lungs clear. Bowel sounds active. No edema noted. Generalized rash on arms and legs, but does not bother patient at this time. Bed locked in lowest position, call light in reach.
[2018-11-23] MEDS: CEFTRIAXONE SOD 1 GM/NS 50 ML 50 ML IV SCH (21:10)
--- NOTE | 2018-11-23 23:55 | NUR ---
Patient sitting up in bed, agitated, stating there was a bad stench in the bathroom and we needed to clean it with bleach. Disorganized thoughts verbalized. Reported he wanted the door open to air out the smell and so he could hear "the man talking shit about me." When asked who he was referring to as there were no men around, patient laughed and did not reply. No eye contact noted throughout conversation. Told patient we would talk to housekeeping in the morning about cleaning the bathroom and patient said that was okay. Asked if he needed anything at this time, patient said no. Repeated he wanted the door left open. Reminded patient to call us if he needed anything. Patient verbalized understanding.
[2018-11-24 01:34] VITALS: BP 102/70
--- NOTE | 2018-11-24 01:44 | NUR ---
Patient was agitated during vitals, so went at this time to get his vitals. Patient resting in bed. Explained we needed his vitals and he calmly agreed. No agitation noted. No disorganized thoughts verbalized. Asked patient if he still wanted door open and he said yes. Will continue to monitor.
[2018-11-24 04:00] VITALS: BP 130/86
--- NOTE | 2018-11-24 05:02 | NUR ---
Patient given hibi cleanse wipes, shower refused. L chest shaved first. Reminded patient of NPO status after 0600. Explained he will need one more hibi cleanse before procedure. Patient verbalized understanding.
--- NOTE | 2018-11-24 06:10 | NUR ---
Sterile dressing change to L IJ performed. Patient tolerated well.
[2018-11-24 06:25] LABS: INR 1.07; PROTHROMBIN TIME 14.4 seconds (11.9-14.5)
[2018-11-24 07:23] VITALS: BP 116/82
--- NOTE | 2018-11-24 07:35 | NUR ---
NOTIFIED BY PCT THAT PT WAS IN THE ROOM ACROSS THE SHAY YELLING AT PATIENT'S . SAW PT WALKING BACK TO HIS OWN ROOM FROM ROOM 112 ACR[address] THE SHAY. PT SAT IN RECLINER. QUESTIONED PT WHAT WAS WRONG AND WHY HE WENT TO THE OTHER ROOM, PT WITH RAISE VOICE RESPONDED "HE KEPT HITTING THE ROCHA TOO MUCH". NURSE NOTIFIED PT IF THERE IS A PROBLEM HE NEEDS TO NOTIFY NURSE AND HE IS NOT TO GO INTO OTHER PATIENT ROOMS. PT RAISED VOICE EVEN LOUDER AND BEGAN CURSING AT NURSE USING INAPPROPRIATE AND RACIAL TERMS. NURSE WALKED OUT OF ROOM AND CALLED SECURITY AND NOTIFIED MANAGER OF INFORMATION. MIRIAM CASE WAS CALLED SOON AFTER APPROX 0740.
--- NOTE | 2018-11-24 07:45 | NUR ---
DR. Dalia CASTILLO ARRIVED DURING CODE CASE. DR. Dalia CASTILLO STATED "I WILL TAKE CARE OF THIS". HE WENT IN ROOM AND SPOKE WITH PT. REQUESTED ATIVAN [address]MG IV[address] DR. Dalia CASTILLO ADMINISTERED.
[2018-11-24] MEDS ORDERED: LORAZEPAM INJ 2 MG/ML VIAL ONE (07:47)
[2018-11-24] MEDS ORDERED: LORAZEPAM 0.5 MG TAB PO PRN (08:00)
[2018-11-24] MEDS: DIGOXIN INJ 0.25 MG/ML 2 ML AMP IV SCH (10:50)
[2018-11-24] MEDS: SPIRONOLACTONE 25 MG TAB PO SCH (10:50)
[2018-11-24] MEDS: FUROSEMIDE 40 MG TAB PO SCH (10:50)
[2018-11-24] MEDS: CARVEDILOL 3.125 MG TAB PO SCH ×2 (10:50→17:00)
[2018-11-24] MEDS: LISINOPRIL 2.5 MG TAB PO SCH (10:50)
[2018-11-24] MEDS: POTASSIUM CHLORIDE 20 MEQ TAB CR PO SCH (10:50)
[2018-11-24] MEDS: RISPERIDONE 0.5 MG TAB PO SCH ×2 (10:51→17:49)
[2018-11-24] MEDS: NICOTINE 14 MG/EA PATCH TOP SCH (10:51)
--- NOTE | 2018-11-24 11:18 | Progress Note ---
DATE: November 24, 2018 SUBJECTIVE: The patient became agitated this morning and had conflict with the patient across the steen. When I arrived, he was back in his room and security was present. Apparently, the patient mistook patient across the steen for his old neighbor (a person with whom he had conflict with in the past). I personally administered 1 mg of Ativan IV and he is now resting in the room. He is feeling better. PHYSICAL EXAMINATION: VITAL SIGNS: Blood pressure is 115/82 and the saturation is 96%, the pulse is 105. HEENT: Shows no facial swelling or erythema. Nasal mucosa is normal. LYMPHATIC: Shows no submandibular, cervical, or supraclavicular adenopathy. CARDIAC: Regular rate and rhythm with normal S1 and S2. There are no murmurs or rubs. Auscultation of lungs reveals clear breath sounds bilaterally. There is no wheezing. ABDOMEN: Soft, nontender. There is no rebound or guarding. EXTREMITIES: Show no leg edema or calf tenderness. There is no cyanosis or clubbing. LABORATORY DATA: The sodium is 137 and the electrolytes are within normal limits. The INR is 1.07. IMPRESSION: 1. Nonischemic cardiomyopathy with ejection fraction of 20% to 25%. 2. Acute on chronic systolic congestive heart failure. 3. Deep vein thrombosis. 4. Atrial fibrillation. 5. Manic-depressive illness with acute agitation. PLAN: 1. We will begin risperidone 0.5 mg twice daily and Ativan 0.5 mg p.r.n. 2. We will arrange for a transfer to another floor on the hospital along with the sitter. 3. The patient is not a danger to himself or others at this time. He denies any suicidal ideation. He denies any intent to harm other patients or staff members. 4. Continue current anticoagulation and increase warfarin to 5 mg a day. 5. The patient is awaiting possible pacemaker. 6. Continue current cardiac regimen. MD LEONIDAS Rudolph/MIKE /[id number] [place]
[2018-11-24 11:29] VITALS: BP 106/71
[2018-11-24] MEDS ORDERED: RISPERIDONE 0.5 MG TAB PO PRN (13:00)
[2018-11-24] MEDS ORDERED: HALOPERIDOL LACTATE 5 MG/ML VIAL IM PRN (13:00)
--- NOTE | 2018-11-24 13:04 | Progress Note ---
DATE: 11/24/2018 Cardiology Progress Note SUBJECTIVE: The patient is seen in his room. He is arousable. He already signed the consent for the AICD placement today. However, because he was sleepy and sedated, they could not get conscious sedation signature so the procedure is postponed tomorrow. The patient does not have an acute congestive heart failure. At this time, he appears to be more mellow down and not very anxious and the patient diagnosis of nonischemic cardiomyopathy, dilated cardiomyopathy and an ejection fraction of 25%. The patient came with acute congestive heart failure. At the time of admission, the patient was intubated and the patient understands the risks and complications of procedure. I spoke with him on Saturday and Saturday and today also I spoke with him. He said he wants to have the procedure done, so we will go ahead and do it tomorrow. MD ALBERTO Valdez/MIKE /[id number]
[2018-11-24] MEDS: KETOCONAZOLE 2% SHAMPOO 4OZ BTL TOP SCH (13:27)
--- NOTE | 2018-11-24 14:15 | Operative Report ---
DATE OF PROCEDURE: 11/21/2018 SURGEON: Rosemary Mathew MD PROCEDURE: Left heart catheterization, coronary angiogram. INDICATION FOR PROCEDURE: Cardiomyopathies, presented with acute pulmonary edema. History of similar symptoms for last six months. He had multiple hospitals, but no angiogram was performed. This procedure done at [facility], right femoral artery. After informed consent, conscious sedation after draping and suitable right femoral area. Right femoral artery was punctured using the Seldinger technique. The patient received conscious sedation with Versed and fentanyl. Results of test as follows: Right coronary arteriogram shows normal right coronary artery. Left coronary arteriogram shows normal left coronary artery. LV angiogram is not performed. Echo, EF was 20%. Right femoral artery was closed with Vascade closure device. The patient is going to have a pacemaker and AICD on Saturday. The patient accepted to have this done. I could not do it tomorrow because of weekend and the patient was told about it and do it on Saturday and we will continue on his present medications. MD ALBERTO Valdez/MODL /[id number]
[2018-11-24 15:31] VITALS: BP 107/60
[2018-11-24] MEDS ORDERED: WARFARIN SOD 5 MG TAB PO SCH (17:00)
[2018-11-24] MEDS ORDERED: WARFARIN SOD 3 MG TAB PO SCH (17:00)
--- NOTE | 2018-11-24 19:07 | NUR ---
BEDSIDE SHIFT REPORT RECEIVED FROM Augie MULLEN RN. PT IS AAOX3, RR EVEN AND NON-LABORED, ON RA. NO S/SX OF DISTRESS NOTED. (L) IJ NOTED TO BE INTACT. LEFT PT LAYING SEMI FOWLERS IN BED, BED IN LOW LOCKED POSITION, SIDE RAILS UPX2, CALL LIGHT AND PHONE WITHIN REACH. SITTER AT BEDSIDE.
--- NOTE | 2018-11-24 19:30 | NUR ---
ALERTED TO PT ROOM BY SITTER. PT IS VERY FRUSTRATED ABOUT NOT HAVING AN ANSWER ABOUT BILLING FOR PROCEDURES, SPOKE WITH PT AND DEESCALATED SITUATION. PT NOW LAYING IN BED CALM, NO S/SX OF DISTRESSED. PT REPORTS HE WILL TALK WITH BILLING IN AM BEFORE PROCEDURE PERFORMED. LEFT PT LAYING SEMI FOWLERS IN BED, BED IN LOW LOCKED POSITION, SIDE RAILS UPX2, CALL LIGHT AND PHONE WITHIN REACH. PROVIDED PT WITH DEEPAK CALDERON AND FOSTER BAKER AT THIS TIME PER PT REQUEST.
--- NOTE | 2018-11-24 19:40 | NUR ---
NOTIFIED CHARGE NURSE AND LINK KNITTING MACHINE OPERATOR OF PT REQUESTING TO LEAVE AMA.
--- NOTE | 2018-11-24 20:00 | NUR ---
PT REPORTS HE IS FRUSTRATED WITH THE BILLING DEPARTMENT AND CANT GET A STRAIGHT ANSWER ON HOW MUCH ALL HIS PROCEDURES ARE GOING TO COST. WANTS TO LEAVE AMA. SPOKE WITH MD Dalia CASTILLO. OK TO LEAVE AMA LONG PT HAS NO SUICIDAL ASPIRATIONS OR ASPIRATIONS TO HURT OTHERS.
--- NOTE | 2018-11-24 20:11 | NUR ---
PT REQUESTING TO LEAVE AMA, PT CALM AND STATES HE JUST CAN NOT GET A STRAIGHT ANSWER ON HIS BILLING AND NO LONGER WANTS TO STAY HERE. NOTIFIED PT OF MD Dalia CASTILLO NOTIFICATION ABOUT POTENTIAL PROBLEMS OF DEVELOPING PULMONARY EDEMA AGAIN AFTER LEAVING EWING PT REPORTS HE UNDERSTANDS AND STILL WISHES TO SIGN THE PAPERWORK AND LEAVE. PT REPORTS NO SUICIDAL ASPIRATIONS OR WANTS TO HURT ANYONE. PT SIGNED EWING PAPERWORK AT THIS TIME. Addendum: 11/24/18 at 2157 by Karina Funk RN OR NO DESIRE TO HURT ANYONE*
--- NOTE | 2018-11-24 20:21 | NUR ---
(L) IJ REMOVED AT THIS TIME. TIP INTACT. PRESSURE APPLIED TO (L) IJ FOR 10 MINUTES AND APPLIED PRESSURE DRESSING.
--- NOTE | 2018-11-24 20:37 | NUR ---
PT AMBULATORY WITHOUT ASSIST TO PRIVATE AUTO. STEADY GAIT NOTED. NO S/SX OF DISTRESS NOTED. PT BELONGINGS WITH PT.
--- NOTE | 2018-11-24 20:42 | NUR ---
NOTIFIED MD IVAN OF PATIENT LEAVING AMA. ORDERS TO NOTIFY [employer]O TRUCK DRIVER OF PACEMAKER PLACEMENT. SPOKE WITH PSYCHIATRIC CNS. WILL NOTIFY [employer]O TRUCK DRIVER IN AM WHEN PERSONNEL HERE. Addendum: 11/24/18 at 2053 by Karina Funk RN PACEMAKER PLACEMENT CANCELLATION*
--- NOTE | 2018-11-24 21:06 | Consultation ---
DATE OF CONSULTATION: 11/24/2018 Psychiatric Consultation REASON FOR CONSULTATION: To evaluate patient's psychosis. HISTORY OF PRESENT ILLNESS: The patient is a 48-year-old male admitted to the hospital for acute hypercapnic respiratory failure, acute exacerbation. Psychiatric consultation is called to evaluate patient's psychosis. As per medical record, the patient has prior history of pulmonary embolism, AFib and congestive heart failure. Nursing staff called over the weekend to notify Psychiatry that patient needs Psych Service due to his confusion and restlessness. He wanted to leave AMA. He is having hallucinations. Upon evaluation today, patient is found to be lying in the bed. He is alert, awake, and oriented to situation. He is calm and cooperative. He is not agitated or restless. He denies depression or anxiety. He reports feeling hopeless and helpless at times as he is currently homeless. He claims that he is not having any hallucinations at this time, but had been in the past. He is not paranoid. He denies any problem with sleep or appetite. He denies any suicidal or homicidal ideation. The patient thought process is less disorganized. As per nursing staff, the patient is still in AFib and according to the medical note, his ejection fraction is still low with 20% to 25%. He had apparently agreed to have a pacemaker done. PAST PSYCHIATRIC HISTORY: The patient reports history of bipolar for last two years. He denies past suicide attempts. He claims he drinks alcohol once in a while. He denies any drug use. UDS is negative. FAMILY HISTORY: He claims his mom has some anxiety disorder. SOCIAL HISTORY: The patient is currently homeless. MENTAL STATUS EXAM: The patient is middle-aged male. He is alert, awake, and oriented to situation. He is calm and cooperative. His mood is anxious and depressed, but appropriate affect. He denies any suicidal or homicidal ideation. He denies any hallucination. Thought process is concrete. No delusion elicited. Insight and judgment are fair. Memory appears to be grossly intact. CURRENT MEDICATIONS: 1. Risperdal 0.5 mg p.o. b.i.d. 2. Nicotine. 3. Ativan 0.5 mg p.o. three times a day p.r.n. 4. Spironolactone. 5. Lasix. 6. Lisinopril. 7. Potassium. 8. . 9. Digoxin. 10. Ceftriaxone. 11. Robitussin with codeine. 12. Dextrose. 13. Ketoconazole. 14. Warfarin. 15. Sodium chloride. LABORATORY DATA: Current labs, WBC 7.91, RBC 4.28, hemoglobin 13, hematocrit 39.2, platelets 303. Chemistry; sodium is 137, potassium 4, chloride 105, CO2 22, BUN 9, creatinine 0.7. AST 27, ALT 12. ASSESSMENT: A bipolar 1 disorder, recurrent, depressed and moderate with psychosis. PLAN: 1. Continue Risperdal 0.5 mg p.o. b.i.d. 2. Continue Ativan 0.5 mg p.o. three times a day p.r.n. 3. Add Risperdal 0.5 mg p.o. three times a day as needed for agitation. 4. Add Haldol 2 mg IM q.8 hours as needed for severe agitation. 5. Monitor for agitation and mood. 6. Supportive therapy. Thank you for this consultation. Dictated by Guerda Henriquez PA-C Kirsten Santillan MD QTV/MODL /[id number]
== END 2018-11-24 20:37 | disposition left against medical advice (07) | DRG 286 ==
LOC: ER 12:42 → ERHOLD 18:15 → ICU 21:20 → MED/SURG 11-19 15:36
PROVIDERS: ADMIT Internal Medicine Critical Care Medicine; ATTEND Internal Medicine Critical Care Medicine
PROC: 4A023N7 Measurement of Cardiac Sampling and Pressure, Left Heart, Percutaneous Approach (ICD-10-PCS; principal; 2018-11-21)
PROC: B2111ZZ Fluoroscopy of Multiple Coronary Arteries using Low Osmolar Contrast (ICD-10-PCS; 2018-11-21)
PROC: B2151ZZ Fluoroscopy of Left Heart using Low Osmolar Contrast (ICD-10-PCS; 2018-11-21)
DX: I11.0 Hypertensive heart disease with heart failure (principal); J96.20 Acute and chronic respiratory failure, unspecified whether with hypoxia or hypercapnia; E87.1 Hypo-osmolality and hyponatremia; L03.115 Cellulitis of right lower limb; I82.4Z1 Acute embolism and thrombosis of unspecified deep veins of right distal lower extremity; I50.23 Acute on chronic systolic (congestive) heart failure; E87.6 Hypokalemia; Z86.711 Personal history of pulmonary embolism; I48.2 Chronic atrial fibrillation; Z79.01 Long term (current) use of anticoagulants
CPT/HCPCS: 31500; 32555; 36415; 36555; 36556; 36600; 51700; 71045; 71046; 74018; 74470; 80053; 80307; 81001; 82140; 82550; 82553; 82805; 82948; 83615; 83880; 84132; 84145; 84157; 84484; 85025; 85610; 85730; 87040; 87081; 87400; 88112; 88305; 89051; 93005; 93306; 93454; 93970; 94002; 94003; 97139; 99284; J0330; J0456; J0696; J1160; J1650; J1940; J2001; J2060; J2250; J3480; J7030; J7050; J7799; Q9967

== ENCOUNTER 2018-11-24 22:34 | Emergency (ER) | payer MEDICARE ==
[~2018-11-24] VITALS: Ht 172.7 cm; Wt 92.1 kg
[~2018-11-24 22:34] MED LIST: CARVEDILOL3.125 MG PO; DIGOXIN250 MCG PO; FUROSEMIDE40 MG PO; WARFARIN SODIUM3 MG PO
== END 2018-11-25 00:50 | disposition left against medical advice (07) ==
LOC: ER 22:34
DX: I48.2 Chronic atrial fibrillation (principal)
CPT/HCPCS: 93005

== ENCOUNTER 2018-12-12 19:57 | Inpatient (IN) | payer MEDICARE ==
[~2018-12-12] VITALS: Ht 170.2 cm; Wt 87.6 kg
[2018-12-12] MEDS ORDERED: ENOXAPARIN SODIUM INJ 100 MG/ML SYR SC ONE (20:14)
[2018-12-12] MEDS ORDERED: ASPIRIN 81 MG CHEW TAB PO ONE (20:15)
[2018-12-12] MEDS ORDERED: DIGOXIN INJ 0.25 MG/ML 2 ML AMP IV ONE (20:15)
[2018-12-12] MEDS ORDERED: DILTIAZEM HCL 5 MG/ML 5 ML VIAL IV ONE (20:15)
--- NOTE | 2018-12-12 20:45 | Diagnostic Imaging Report ---
EXAMINATION: CHEST SINGLE (PORTABLE) COMPARISON: Chest x-ray 11/20/2018. INDICATION: Chest pain. DISCUSSION: LINES: None. Left IJ central venous catheter is present has been removed. LUNGS/PLEURA: Bilateral pleural effusions and bilateral subsegmental atelectasis. Bilateral pulmonary venous congestion. HEART AND MEDIASTINUM: Stable cardiomegaly and tortuous aorta. BONES AND SOFT TISSUES: No acute osseous susceptibility. IMPRESSION: Bilateral pleural effusions and bilateral lower lobe subsegmental atelectasis. Bilateral pulmonary venous congestion. Signed by: Dr. Dalia Gutierrez M.D. on 12/12/2018 8:41 PM
[2018-12-12 20:51] LABS: BASOPHILS # (AUTO) 0.1 (0.0-0.1); BASOPHILS % 0.6 % (0.0-1.0); EOSINOPHILS # (AUTO) 0.2 (0.0-0.4); LYMPHOCYTES # (AUTO) 1.3 (1.0-3.2); LYMPHOCYTES % 14.1 % (18.0-39.1); MEAN CORPUSCULAR HEMOGLOBIN 30.9 pg (28-32); MEAN CORPUSCULAR HGB CONC 35.3 g/dL (31-35); MEAN CORPUSCULAR VOLUME 87.6 fL (81-99); MONOCYTES % 10.1 % (4.4-11.3); NEUTROPHILS # (AUTO) 6.9 (2.1-6.9); NEUTROPHILS % 72.8 % (38.7-80.0); PLATELET COUNT 355 x10e3/uL (140-360); RED BLOOD COUNT 3.88 x10e6/uL (4.3-5.7); RED CELL DISTRIBUTION WIDTH 17.4 % (11.7-14.4)
[2018-12-12 20:58] LABS: AMPHETAMINES SCREEN,URINE NEGATIVE (NEGATIVE); BENZODIAZEPINES SCREEN,URINE NEGATIVE (NEGATIVE); BILIRUBIN,URINE NEGATIVE (NEGATIVE); CLARITY,URINE SL CLOUDY (CLEAR); COLOR,URINE STRAW (YELLOW); KETONES,URINE NEGATIVE (NEGATIVE); LEUKOCYTE ESTERASE ,URINE NEGATIVE (NEGATIVE); NITRITE,URINE NEGATIVE (NEGATIVE); PHENCYCLIDINE SCREEN,URINE NEGATIVE (NEGATIVE); PROTEIN,URINE DIPSTICK 1+ (NEGATIVE); URINE UROBILINOGEN 0.2 mg/dL (0.2 - 1)
[2018-12-12 21:00] LABS: INR 1.23; PROTHROMBIN TIME 16.1 seconds (11.9-14.5)
[2018-12-12 21:01] LABS: PARTIAL THROMBOPLASTIN TIME 41.9 seconds (23.8-35.5)
[2018-12-12 21:08] LABS: BACTERIA,URINE MODERATE /HPF; MUCUS,URINE FEW (RARE); WBC,URINE (MAN) 0-5 /HPF (0-5)
[2018-12-12 21:10] LABS: ALANINE AMINOTRANSFERASE 10 IU/L (0-55); ALBUMIN 2.7 g/dL (3.5-5.0); ALBUMIN/GLOBULIN RATIO 0.6 (0.8-2.0); ALKALINE PHOSPHATASE 96 IU/L (40-150); ANION GAP 16.9 mmol/L (8-16); BLOOD UREA NITROGEN 10 mg/dL (7-26); BUN/CREATININE RATIO 13 (6-25); CALCIUM 9.8 mg/dL (8.4-10.2); CARBON DIOXIDE 26 mmol/L (22-29); CHLORIDE 94 mmol/L (98-107); CREATINE KINASE 31 IU/L (30-200); CREATININE, SERUM 0.78 mg/dL (0.72-1.25); EST GLOMERULAR FILTRATION RATE > 60 ML/MIN (60-); GLUCOSE 107 mg/dL (74-118); SODIUM 134 mmol/L (136-145)
[2018-12-12 21:13] LABS: POTASSIUM 2.9 mmol/L (3.5-5.1)
[2018-12-12] MEDS ORDERED: POTASSIUM CHLORIDE 20 MEQ TAB CR PO ONE (21:30)
[2018-12-12] MEDS ORDERED: AMIODARONE HCL 150MG 100 ML IV SCH (23:00)
[2018-12-12] MEDS ORDERED: SODIUM CHLORIDE FLUSH 10 ML SYR INJ PRN (23:00)
--- OUTSIDE RECORDS SUMMARY | 2018-12-12 23:06 | XMS REPORT | Continuity of Care Document ---
Author Author [facility] Organization [facility] Address [address] [place] [address] ;ext= Care Team Providers Care Fishing Vessel Operator Name Role Phone MC JARA Admphys TARTATYANAEVINSHAMA Attphys KIRAN ROUSE CP Unavailable NINA FERNÁNDEZ CP Hospital Admission Diagnosis * No data in the System Social History Element Description Code Description Smoking Status Code System Start Date End Date Smoking Status [id number] Unknown if ever smoked SNOMED-CT Problems Code Code System Problem Name Start Date End Date Status Afib with RVR 10/17/2018 Active 89143138 SNOMED-CT Congestive heart failure (disorder) 10/17/2018 Active 03278428 SNOMED-CT Hypertensive disorder Unknown Active 22835230 SNOMED-CT Atrial fibrillation Unknown Active 43382801 SNOMED-CT Schizophrenia Unknown Active 49130397 SNOMED-CT Schizophrenia U Active Medications RxNorm Medication Dose Route Instructions Indications Start Date End Date Status 049797 24 HR Nicotine 0.583 MG/HR Transdermal System [Nicoderm C-Q] 14 MG TOPICAL TOPICAL EVERY DAY NEEDED as needed. Active ASPIRIN 81 MG ORAL ORAL ONCE A DAY Active CARVEDILOL 3.125 MG ORAL ORAL TWICE A DAY WITH MEALS Active DIGOXIN 0.25 MG ORAL ORAL ONCE A DAY AT 5PM Active 625894 Furosemide 40 MG Oral Tablet 40 milligram oral orally 2 times per day Active 046615 Furosemide 40 MG Oral Tablet 40 milligram oral orally every day Active 412353 Nitroglycerin 0.4 MG Sublingual Tablet [Nitrostat] 0.4 MG SUBLINGUAL SUBLINGUAL EVERY 5 MINUTES NEEDED as needed. Active 477884 Warfarin Sodium 3 MG Oral Tablet [Coumadin] 3 MG ORAL ORAL ONCE A DAY AT 5PM Active 4603 Furosemide 40 milligram oral orally 3 times per day No Longer Active Allergies * No Known Allergies Results Laboratory Results Order: BMP BASIC METABOLIC PANEL Specimen Source: BLOOD Body Site: [facility] Test Result Flag Range Unit Date 2950-09 1Sodium:SCnc:Pt:Ser/Plas:Qn 138 137-145 mmol/l 10/28/2018 06:15 2823-3 1Potassium:SCnc:Pt:Ser/Plas:Qn 4.1 3.5-5.1 mmol/l 10/28/2018 06:15 2075-0 1Chloride:SCnc:Pt:Ser/Plas:Qn 101 98-107 mmol/l 10/28/2018 06:15 98915-9 1Calcium:MCnc:Pt:Ser/Plas:Qn 8.9 8.5-10.1 mg/dl 10/28/2018 06:15 8-9 1Carbon dioxide:SCnc:Pt:Ser/Plas:Qn 32 21-32 mmol/l 10/28/2018 06:15 2350-7 1Glucose:MCnc:Pt:Urine:Qn 91 74-106 mg/dl 10/28/2018 06:15 3094-0 1Urea nitrogen:MCnc:Pt:Ser/Plas:Qn 10 7.0-18.0 mg/dl 10/28/2018 06:15 2160-0 1Creatinine:MCnc:Pt:Ser/Plas:Qn 0.7 0.5-1.3 mg/dl 10/28/2018 06:15 1EGFR if >60 mL/min/1.73m^2 10/28/2018 06:15 1EGFR if Non- >60 mL/min/1.73m^2 10/28/2018 06:15 Note: Estimated Glomerular Filtration Rate (eGFR) Reference Intervals Decision Points for 18 years and older and average body mass: >=60 Does not exclude kidney disease. 30 - 59 Suggests moderate chronic kidney disease and indicates the need for further investigation including assessment of proteinuria and cardiovascular factors. < 30 Usually indicates a need for referral for assessment and management of chronic kidney failure. * Performing Lab Footnotes:* [address] [place] [address] - [id number] - [address] [facility] [address] [place] [address] DENISE Bean MD: DIRECTOR WILMAN OVIEDO Order: CBC PLATELET AUTO DIFF Specimen Source: BLOOD Body Site: LOINC Test Result Flag Range Unit Date 65983-9 1Leukocytes^^corrected for nucleated erythrocytes:NCnc:Pt:Bld:Qn:Automated count 7.21 4.80-10.80 10^3/ul 10/28/2018 06:15 789-8 1Erythrocytes:NCnc:Pt:Bld:Qn:Automated count 3.6 L 4.70-6.10 10^6/ul 10/28/2018 06:15 718-7 1Hemoglobin:MCnc:Pt:Bld:Qn 11.5 L 14.0-18.0 gm/dl 10/28/2018 06:15 4544-3 1Hematocrit:VFr:Pt:Bld:Qn:Automated count 34.7 L 42.0-50.0 % 10/28/2018 06:15 787-2 1Erythrocyte mean corpuscular volume:EntVol:Pt:RBC:Qn:Automated count 96.4 H 80.0-94.0 fL 10/28/2018 06:15 785-6 1Erythrocyte mean corpuscular hemoglobin:EntMass:Pt:RBC:Qn:Automated count 31.9 H 27.0-31.0 pg 10/28/2018 06:15 786-4 1Erythrocyte mean corpuscular hemoglobin concentration:MCnc:Pt:RBC:Qn:Automated count 33.1 33.0-37.0 gm/dl 10/28/2018 06:15 788-0 1Erythrocyte distribution width:Ratio:Pt:RBC:Qn:Automated count 18.5 H 11.5-14.5 % 10/28/2018 06:15 777-3 1Platelets:NCnc:Pt:Bld:Qn:Automated count 369 130-400 10^3/ul 10/28/2018 06:15 97630-8 1Platelet mean volume:EntVol:Pt:Bld:Qn:Automated count 10.1 A 7.4-10.4 fL 10/28/2018 06:15 Note: 'NOT MEASURED' RESULTS ARE DISPLAYED WHEN THE INSTRUMENT HAS A SUPPRESSED OR UNREPORTABLE RESULT. THIS WILL MOST OFTEN HAPPEN WITH THE MPV WHEN THERE IS AN ABNORMAL PLATELET DISTRIBUTION DUE TO A CRITICAL LOW VALUE OR PLATELET CLUMPING. THE RDW MAY BE SUPPRESSED IF THERE ARE MULTIPLE PEAKS PRESENT ON THE RBC HISTOGRAM. IN THIS CASE, A MANUAL REVIEW OF THE SLIDE WILL BE PERFORMED, AND RBC MORPHOLOGY WILL BE NOTED ON THE REPORT. 770-8 1Neutrophils/100 leukocytes:NFr:Pt:Bld:Qn:Automated count 65.8 42.0-75.0 % 10/28/2018 06:15 736-9 1Lymphocytes/100 leukocytes:NFr:Pt:Bld:Qn:Automated count 17.2 13.0-42.0 % 10/28/2018 06:15 5905-5 1Monocytes/100 leukocytes:NFr:Pt:Bld:Qn:Automated count 13.9 4.0-14.0 % 10/28/2018 06:15 713-8 1Eosinophils/100 leukocytes:NFr:Pt:Bld:Qn:Automated count 1.7 1.0-5.0 % 10/28/2018 06:15 706-2 1Basophils/100 leukocytes:NFr:Pt:Bld:Qn:Automated count 1 0.0-3.0 % 10/28/2018 06:15 1IG% 0.4 0.0-0.4 % 10/28/2018 06:15 * Performing Lab Footnotes:* [address] [place], [place] [address]JOSE - [id number] - [address] [address] [facility] - : DIRECTOR WILMAN OVIEDO Order: MAGNESIUM SERUM Specimen Source: BLOOD Body Site: LOINC Test Result Flag Range Unit Date 1Magnesium 2.3 1.6-2.6 mg/dl 10/28/2018 06:15 * Performing Lab Footnotes:* [address] [place] [address] [id number] - [address] [address] DENISE Bean MD: DIRECTOR WILMAN OVIEDO Order: PROTIME PT INR Specimen Source: BLOOD Body Site: LOINC Test Result Flag Range Unit Date 5902-2 1Coagulation tissue factor induced:Time:Pt:PPP:Qn:Coag 24.1 H 9.0-11.9 seconds 10/28/2018 06:15 6301-6 1Coagulation tissue factor induced.INR:RelTime:Pt:PPP:Qn:Coag 2.5 H 0.9-1.1 10/28/2018 06:15 Note: INR results are intended ONLY to monitor Oral Anticoagulant therapy in stablized patients. The INR Therapeutic Range is 2.0 - 3.0 Patients with a mechanical heart, the INR Range is 2.5 - 3.5 * Performing Lab Footnotes:* [address] [place] [address] - [id number] - [address] [address] DENISE Bean MD: DIRECTOR WILMAN OVIEDO Order: XA UF HEPARIN Specimen Source: BLOOD Body Site: LOINC Test Result Flag Range Unit Date 1HEPARIN XA 0.36 0.30-0.70 10/25/2018 12:53 * Performing Lab Footnotes:* [address] [place] [address] - [id number] - [address] [facility] [address] [place] [address] [facility] - MD: DIRECTOR WILMAN OVIEDO Order: CBC - HEMOGRAM ONLY Specimen Source: BLOOD Body Site: LOINC Test Result Flag Range Unit Date 67760-9 1Leukocytes^^corrected for nucleated erythrocytes:NCnc:Pt:Bld:Qn:Automated count 7.5 4.80-10.80 10^3/ul 10/24/2018 06: 789-8 1Erythrocytes:NCnc:Pt:Bld:Qn:Automated count 3.57 L 4.70-6.10 10^6/ul 10/24/2018 06:09 718-7 1Hemoglobin:MCnc:Pt:Bld:Qn 11.5 L 14.0-18.0 gm/dl 10/24/2018 06: 4544-3 1Hematocrit:VFr:Pt:Bld:Qn:Automated count 35.3 L 42.0-50.0 % 10/24/2018 06: 787-2 1Erythrocyte mean corpuscular volume:EntVol:Pt:RBC:Qn:Automated count 98.9 H 80.0-94.0 fL 10/24/2018 06: 785-6 1Erythrocyte mean corpuscular hemoglobin:EntMass:Pt:RBC:Qn:Automated count 32.2 H 27.0-31.0 pg 10/24/2018 06:09 786-4 1Erythrocyte mean corpuscular hemoglobin concentration:MCnc:Pt:RBC:Qn:Automated count 32.6 L 33.0-37.0 gm/dl 10/24/2018 06:09 788-0 1Erythrocyte distribution width:Ratio:Pt:RBC:Qn:Automated count 19.7 H 11.5-14.5 % 10/24/2018 06:09 777-3 1Platelets:NCnc:Pt:Bld:Qn:Automated count 337 130-400 10^3/ul 10/24/2018 06:09 43506-8 1Platelet mean volume:EntVol:Pt:Bld:Qn:Automated count 9.7 A 7.4-10.4 fL 10/24/2018 06:09 Note: 'NOT MEASURED' RESULTS ARE DISPLAYED WHEN THE INSTRUMENT HAS A SUPPRESSED OR UNREPORTABLE RESULT. THIS WILL MOST OFTEN HAPPEN WITH THE MPV WHEN THERE IS AN ABNORMAL PLATELET DISTRIBUTION DUE TO A CRITICAL LOW VALUE OR PLATELET CLUMPING. THE RDW MAY BE SUPPRESSED IF THERE ARE MULTIPLE PEAKS PRESENT ON THE RBC HISTOGRAM. IN THIS CASE, A MANUAL REVIEW OF THE SLIDE WILL BE PERFORMED, AND RBC MORPHOLOGY WILL BE NOTED ON THE REPORT. * Performing Lab Footnotes:* [address] [place] [address] [id number] [place] [address] DENISE Bean MD: DIRECTOR WILMAN OVIEDO Order: DIGOXIN SERUM Specimen Source: BLOOD Body Site: LOINC Test Result Flag Range Unit Date 1Digoxin 0.9 0.5-2.0 ng/ml 10/23/2018 22:30 * Performing Lab Footnotes:* [address] [place] [address] - [id number] - [address] [facility] [address] [place] [address] DENISE Bean MD: DIRECTOR WILMAN OVIEDO Order: CMP COMPREHENSIVE METABOLIC PANEL Specimen Source: BLOOD Body Site: LOINC Test Result Flag Range Unit Date 2950-09 1Sodium:SCnc:Pt:Ser/Plas:Qn 140 137-145 mmol/l 10/23/2018 04:47 2823-3 1Potassium:SCnc:Pt:Ser/Plas:Qn 4.4 3.5-5.1 mmol/l 10/23/2018 04:47 2075-0 1Chloride:SCnc:Pt:Ser/Plas:Qn 105 98-107 mmol/l 10/23/2018 04:47 48168-2 1Calcium:MCnc:Pt:Ser/Plas:Qn 8.5 8.5-10.1 mg/dl 10/23/2018 04:47 8-9 1Carbon dioxide:SCnc:Pt:Ser/Plas:Qn 30 21-32 mmol/l 10/23/2018 04:47 2350-7 1Glucose:MCnc:Pt:Urine:Qn 84 74-106 mg/dl 10/23/2018 04:47 3094-0 1Urea nitrogen:MCnc:Pt:Ser/Plas:Qn 11 7.0-18.0 mg/dl 10/23/2018 04:47 2160-0 1Creatinine:MCnc:Pt:Ser/Plas:Qn 0.7 0.5-1.3 mg/dl 10/23/2018 04:47 2885-2 1Protein:MCnc:Pt:Ser/Plas:Qn 6.5 6.4-8.2 gm/dl 10/23/2018 04:47 1751-7 1Albumin:MCnc:Pt:Ser/Plas:Qn 2.2 L 3.4-5.0 gm/dl 10/23/2018 04:47 1A/G Ratio 0.5 L 1.1-2.2 % 10/23/2018 04:47 1920-8 1Aspartate aminotransferase:CCnc:Pt:Ser/Plas:Qn 31 15-37 U/L 10/23/2018 04:47 1742-6 1Alanine aminotransferase:CCnc:Pt:Ser/Plas:Qn 20 13-61 U/L 10/23/2018 04:47 6768-6 1Alkaline phosphatase:CCnc:Pt:Ser/Plas:Qn 102 45-117 U/L 10/23/2018 04:47 1975-2 1Bilirubin:MCnc:Pt:Ser/Plas:Qn 1 0.2-1.0 mg/dl 10/23/2018 04:47 1Globulin 4.3 H 2.3-3.5 gm/dl 10/23/2018 04:47 1Calcium, Corrected 9.9 8.4-10.2 mg/dl 10/23/2018 04:47 Note: Various formulas exist for corrected serum calcium results, each yielding different values. This corrected result was based on the formula: Corrected Calcium=SerumCalcium + [0.8 * ( 4 - SerumAlbumin)] 1EGFR if >60 mL/min/1.73m^2 10/23/2018 04:47 1EGFR if Non- >60 mL/min/1.73m^2 10/23/2018 04:47 Note: Estimated Glomerular Filtration Rate (eGFR) Reference Intervals Decision Points for 18 years and older and average body mass: >=60 Does not exclude kidney disease. 30 - 59 Suggests moderate chronic kidney disease and indicates the need for further investigation including assessment of proteinuria and cardiovascular factors. < 30 Usually indicates a need for referral for assessment and management of chronic kidney failure. * Performing Lab Footnotes:* [address] [place] [address] [id number] - [address] [address] [facility] - MD: DIRECTOR WILMAN OVIEDO Order: POTASSIUM Specimen Source: BLOOD Body Site: LOINC Test Result Flag Range Unit Date 2823-3 1Potassium:SCnc:Pt:Ser/Plas:Qn 3.9 3.5-5.1 mmol/l 10/21/2018 19:14 * Performing Lab Footnotes:* [address] [place] [address] - [id number] - [address] [facility] [address] [place] [address], [place] [address] DENISE Bean MD: DIRECTOR WILMAN OVIEDO Order: CKMB Specimen Source: BLOOD Body Site: LOINC Test Result Flag Range Unit Date 1CKMB 1.4 0.50-3.60 ng/ml 10/18/2018 13:06 * Performing Lab Footnotes:* [address] [place] [address] - [id number] - [address] [facility] [address] [place] [address] DENISE Bean MD: DIRECTOR WILMAN OVIEDO Order: CPK Specimen Source: BLOOD Body Site: LOINC Test Result Flag Range Unit Date 1CPK 29 26-308 U/L 10/18/2018 13:06 * Performing Lab Footnotes:* [address] [place] [address] [id number] - [address] [facility] [address] - [place] [address] DENISE Bean MD: DIRECTOR WILMAN OVIEDO Order: TROPONIN I QUANTITATIVE Specimen Source: BLOOD Body Site: LOINC Test Result Flag Range Unit Date 1Troponin-I <0.015 0.000-0.045 ng/ml 10/18/2018 13:06 Note: The 99th Percentile URL is 0.045 ng/mL for the Siemens [place] Troponin I. The Joint Society of Cardiology/[place] [employer] (ESC/ACC) and the National [...] first 24 hours after the clinical event. * Performing Lab Footnotes:* [address] [place] [address] [id number] - [address] [place] [address] DENISE Bean MD: DIRECTOR WILMAN OVIEDO Order: FREE T3 Specimen Source: BLOOD Body Site: LOINC Test Result Flag Range Unit Date 1T3, FREE 1.45 L 2.18-3.98 pg/ml 10/18/2018 05:23 * Performing Lab Footnotes:* [address] [place] [address] [id number] - [address] [place] [address] DENISE Bean MD: DIRECTOR WILMAN OVIEDO Order: FREE T4 Specimen Source: BLOOD Body Site: LOINC Test Result Flag Range Unit Date 1Free T4 1.25 0.76-1.46 ng/dl 10/18/2018 05:23 * Performing Lab Footnotes:* [address] [place] [address] - [id number] - [address] [facility] [address] [place] [address] [facility] - MD: DIRECTOR WILMAN OVIEDO Radiology Results Order: [id number] XR CHEST 2 PA LATERAL* Exam Completion Date:10/27/2018 05:00 Procedure: XR CHEST 2 PA LATERAL Order Date: 10/27/2018 5:00 AMOsbaldo rosado Provider: KIRAN Greenberginical Indication: R07.1: CHEST PAIN ON BREAT [id number]: O/E - pulmonary edemaComparison: October 24, 2018Findings: Cardiac size is enlarged.Pulmonary vasculature is normal.Mediastinal contour is normal. Aortic contour is normal. Moderate right pleural effusion with basilar infiltrat e versus atelectasis.Small left pleural effusion with basilar infiltrate versus atelectasis.No pneumothorax.There is no skeletal abnormality.Impression:1. Moder ate right pleural effusion with basilar infiltrate versus atelectasis.2. Small r ight pleural effusion with left basilar infiltrate versus atelectasis.3. Stable cardiomegaly.4. No other significant interval change.This final report was elect ronically signed by Dr Alexei Ramirez MD 10/27/20189:22 AMDictated By: Micah RAMIREZDate: 10/27/2018 09:22 Order: [id number] XR CHEST AP/PA 1 VIEW* Exam Completion Date:10/24/2018 05:00 Procedure: XR CHEST AP/PA 1 VIEW Order Date: 10/24/2018 5:00 AMOsbaldo rosado Provider: KIRAN Greenberginical Indication: [id number]: Pulmonary emboli smComparison: October 17, 2018Findings: Cardiac size is enlarged.Pulmonary vascula ture is normal.Mediastinal contour is normal. Aortic contour is normal. Moderate right pleural effusion with basilar infiltrate versus atelectasis.Small left pl eural effusion with basilar atelectasis.No pneumothorax.There is no skeletal abn ormality.Impression:1. Moderate right pleural effusion with basilar infiltrate v ersus atelectasis.2. Small right pleural effusion with left basilar atelectasis. 3. Cardiomegaly.4. No other significant interval change.This final report was el ectronically signed by Dr Alexei Ramirez MD 10/24/20187:10 AMDictated By: ALEXEI RAMIREZ.Date: 10/24/2018 07:10 Vital Signs Vitals Value Date Body Temperature 97.6 F 10/28/2018 Pulse Rate 98 (beats)/min 10/28/2018 Respiratory Rate 18 (breaths)/min 10/28/2018 O2% BldC Oximetry 94 % 10/28/2018 BP Systolic 99 mmHg 10/28/2018 BP Diastolic 76 mmHg 10/28/2018 Weight Measured 227.95 lbs 10/27/2018 Height 68 in 10/17/2018 BSA (Body Surface Area) 2.51400 m2 10/17/2018 BMI (Body Mass Index) 34.9 kg/m2 10/17/2018 Advance Directives Patient does NOT have Living Will Directive Type Effective Date Store Receiver Notes Supporting Document Name Address Phone No Directive Type specified 10/17/2018 09:55 Not Specified Not Specified Not Specified None No Family History * No Data Reported Plan of Care * No data in the system Procedures Code Code System Procedure Name Target Site Date of Procedure XR CHEST 2 PA LATERAL 10/27/2018 09:28 Encounters * No data in the system Immunizations * No data in the system Functional Status Code Functional/Cognitive Condition Code System Date Status 163249732 Ability to perform activities of everyday life (observable entity) SNOMED-CT 10/17/2018 Active 244839689 Ability to manage personal health care (observable entity) SNOMED-CT 10/17/2018 Active 82856428 Normal vision [facility] 10/17/2018 Active 26072494 Walker, device (physical object) [facility] 10/21/2018 Active 128276940 Wears glasses [facility] 10/23/2018 Active 021119900 Firm pressure touch, function (observable entity) [facility] 10/27/2018 Active 606668437 Orientated [facility] 10/27/2018 Active 815338064 Oriented to time [facility] 10/27/2018 Active 234764785 Oriented to place [facility] 10/27/2018 Active 662459512 Oriented to person [facility] 10/27/2018 Active 297832279 Stable gait (finding) [facility] 10/27/2018 Active 643980270 No speech problem (situation) [facility] 10/27/2018 Active Hospital Discharge Instructions * DC to Prison/IRF* Discharge To Another Facility* Rehab * Name of Facility* [facility] * To (Insert Physician Name)* Dr. Zacarias Manzanares * Discharge Diagnosis* Acute bilateral pulmonary emboli/atrial +/- ventricular thrombus, New onset Afib; Severe Acute systolic heart failure exacerbation with LVEF 15%; Pneumonia (completed treatment); Bipolar disorder/schizophrenia * Discharge Code Status* Full Code * Discharge Consult(s):* Dr. Medrano (Cardiology) * History* Bipolar Disorder, Schizophrenia, CHF, COPD, * Discharge Nursing / Resp Orders* Routine VS * Daily Weight* * Strict I & O * Oxygen per NC * Titrate for O2 Sat >92% * Precautions* Fall Precautions * Discharge Activity Orders* Up Ad Dorothy * Discharge Diet Orders* Cardiac * Discharge - Outpatient Referral(s)* OP PT * Eval and Treat * Physician Name for Follow Up Appt #1* Dr. Medrano - [facility] in [place], [place] WITHIN ONE WEEK OF DISCHARGE FROM HOSPITAL * Follow Up LAB / XRAY Appointment(s)* At [facility] (BNP, Magnesium, PT/INR) * Discharge Meds per DC MED Reconciliation* Yes (If yes attach copy) * LACE Score from this Admission* 12 * Discharge Documents Given to Pt / NH* Discharge order * Discharge Instructions Given * Medication Reconciliation * Prescriptions Given * Medications * Influenza Vaccine NOT Given, State Reason(s) Below:* Previously immunized during this flu season * Pneumonia Vaccine* Given this admission * Discharge Instructions* Discharge Instructions* Patient education provided
--- OUTSIDE RECORDS SUMMARY | 2018-12-12 23:06 | XMS REPORT | Continuity of Care Document ---
Author Author [facility] Address [address] [place] [address] ;ext= Care Team Providers Care Manager Of Supply Chain Name Role Phone MINE WALTERS Admphys MINE WALTERS Attphys [facility] Admission Diagnosis Code Admission Diagnosis Date 5468712 Hallucinations Social History Element Description Code Description Smoking Status Code System Start Date End Date Smoking Status [id number] Light tobacco smoker SNOMED-CT Problems Code Code System Problem Name Start Date End Date Status Afib with RVR 10/17/2018 Active 53654143 SNOMED-CT Congestive heart failure (disorder) 10/17/2018 Active 79588815 SNOMED-CT Hypertensive disorder Unknown Active 79825784 SNOMED-CT Atrial fibrillation Unknown Active 52262247 SNOMED-CT Schizophrenia Unknown Active 82003124 SNOMED-CT Schizophrenia U Active Medications RxNorm Medication Dose Route Instructions Indications Start Date End Date Status 665341 Furosemide 40 MG Oral Tablet 40 milligram oral orally 3 times per day Active Allergies * No Known Allergies Results Laboratory Results Order: Arterial Blood Gas - ABG Specimen Source: BLOOD Body Site: [facility] Test Result Flag Range Unit Date 1pH (ABG) 7.446 7.350-7.450 10/17/2018 15:37 1pCO2(T) 46.2 H 35.0-45.0 mmHg 10/17/2018 15:37 1pO2(T) 92.7 80.0-100.0 mmHg 10/17/2018 15:37 1sO2 97.9 90.0-99.0 % 10/17/2018 15:37 1Na+ 132.2 L 135.0-148.0 mmol/l 10/17/2018 15:37 1K+ 2.65 LL 3.50-4.50 mmol/l 10/17/2018 15:37 1Ca2+ 1.11 L 1.120-1.320 mmol/l 10/17/2018 15:37 1Cl- 90 L 98-107 mmol/l 10/17/2018 15:37 1tHb 11.9 11.5-17.4 gm/dl 10/17/2018 15:37 1Hct 42.3 35.0-50.0 10/17/2018 15:37 1O2Hb >95.0 95.0-99.0 % 10/17/2018 15:37 1COHb <2.80 H 0.5-2.5 % 10/17/2018 15:37 1MetHB <1.30 0.4-1.5 % 10/17/2018 15:37 1Gluc 126 H 60.0-109.9 mg/dl 10/17/2018 15:37 1Lac <1.60 0.44-2.22 mmol/l 10/17/2018 15:37 1Barometric Pressure 769.3 450.0-1000.0 mmHg 10/17/2018 15:37 1BE(act) 7 mmol/l 10/17/2018 15:37 1HCO3 29 H 22-26 meq/L 10/17/2018 15:37 1ctCO2(B) 28 mmol/l 10/17/2018 15:37 1FIO2 (fO2(I) 0.21 % 10/17/2018 15:37 1Drawn By FINN DAVIS 10/17/2018 15:37 1Collection Date 10/17/2018 10/17/2018 15:37 1Collection Time 15:40 10/17/2018 15:37 1Sample Site R Radial 10/17/2018 15:37 1Sample Type Arterial 10/17/2018 15:37 1Allens Test Acceptable 10/17/2018 15:37 1Notified By FINN DAVIS 10/17/2018 15:[address] PENN 10/17/2018 15:37 1Date Notified 10/17/2018 10/17/2018 15:37 1Time Notified 15:40 10/17/2018 15:37 1[place] [id number] 10/17/2018 15:37 1Reported By FINN DAVIS 10/17/2018 15:37 * Performing Lab Footnotes:* [address] [place] [address] - [id number] - [address] [place] [address] DENISE Baen MD: DIRECTOR WILMAN OVIEDO Order: DRUG SCREEN MED Specimen Source: URINE SPECIMENS Body Site: LOINC Test Result Flag Range Unit Date 1PH 6.0 10/17/2018 15:01 1Specific Bodega <=1.005 10/17/2018 15:01 02884-3 1Amphetamine:Threshold:Pt:Urine:Ord:Screen Negative 10/17/2018 15:01 52200-6 1Barbital:Threshold:Pt:Urine:Ord:Screen Negative 10/17/2018 15:01 80107-2 1Benzodiazepines:Threshold:Pt:Urine:Ord:Screen Negative 10/17/2018 15:01 02029-0 1Cocaine:Threshold:Pt:Urine:Ord:Screen Negative 10/17/2018 15:01 42310-1 1Methadone:Threshold:Pt:Urine:Ord:Screen Negative 10/17/2018 15:01 20648-7 1Opiates:Threshold:Pt:Urine:Ord:Screen Positive 10/17/2018 15:01 40744-4 1Phencyclidine:Threshold:Pt:Urine:Ord:Screen Negative 10/17/2018 15:01 Note: The following table provides an interpretive guide for the Drugs of Abuse ran on the Siemens Upperstrasburg analyzer listed there in: Amphetamines < 1000 ng/ml=Negative Barbituates < 200 ng/ml=Negative Benzodiazapines < 200 ngml=Negative Cocaine < 300 ng/ml=Negative Methadone < 300 ng/ml=Negative Opiate < 300 ng/ml=Negative PCP < 25 ng/ml=Negative THC < 50 ng/ml=Negative Results equal to or greater than the above cut-off values=Presumptive Positive. Confirmation of Presumptive Positive results are available upon request. 80688-0 1Cannabinoids:Threshold:Pt:Urine:Ord:Screen Negative 10/17/2018 15:01 * Performing Lab Footnotes:* [address] [place] [address] - [id number] - [address] [place] [address] [address] [place] [address] DENISE - MD: DIRECTOR WILMAN OVIEDO Order: UA URINALYSIS WITH MICROSCOPY Specimen Source: URINE SPECIMENS Body Site: [facility] Test Result Flag Range Unit Date 57786 1Color:Type:Pt:Urine:Nom LT. YELLOW 10/17/2018 15:01 5767-9 1Appearance:Aper:Pt:Urine:Nom CLEAR 10/17/2018 15:01 2349-9 1Glucose:ACnc:Pt:Urine:Ord NEGATIVE NEGATIVE 10/17/2018 15:01 5770-3 1Bilirubin:ACnc:Pt:Urine:Ord:Test strip NEGATIVE NEGATIVE 10/17/2018 15:01 2514-8 1Ketones:ACnc:Pt:Urine:Ord:Test strip NEGATIVE NEGATIVE 10/17/2018 15:01 5811-5 1Specific gravity:Rden:Pt:Urine:Qn:Test strip <=1.005 A 1.005-1.030 10/17/2018 15:01 5794-3 1Hemoglobin:ACnc:Pt:Urine:Ord:Test strip NEGATIVE NEGATIVE 10/17/2018 15:01 5803-2 1pH:LsCnc:Pt:Urine:Qn:Test strip 6.0 A 4.5-8.0 10/17/2018 15:01 29938-8 1Protein:ACnc:Pt:Urine:Ord:Test strip NEGATIVE NEGATIVE 10/17/2018 15:01 5818-0 1Urobilinogen:ACnc:Pt:Urine:Ord:Test strip 0.2 0.2 10/17/2018 15:01 5802-4 1Nitrite:ACnc:Pt:Urine:Ord:Test strip NEGATIVE NEGATIVE 10/17/2018 15:01 5799-2 1Leukocyte esterase:ACnc:Pt:Urine:Ord:Test strip NEGATIVE NEGATIVE 10/17/2018 15:01 5821-4 1Leukocytes:Naric:Pt:Urine sed:Qn:Microscopy.light.HPF None Seen A 0-5 10/17/2018 15:01 78459-8 1Erythrocytes:Naric:Pt:Urine sed:Qn:Microscopy.light.HPF None Seen A 0-5 10/17/2018 15:01 50668-1 1Epithelial cells.squamous:Naric:Pt:Urine sed:Qn:Microscopy.light.HPF None Seen A 0-10 10/17/2018 15:01 8247-9 1Mucus:ACnc:Pt:Urine sed:Ord:Microscopy.light None Seen None Seen 10/17/2018 15:01 5769-5 1Bacteria:Naric:Pt:Urine sed:Qn:Microscopy.light.HPF None Seen None Seen,Trace 10/17/2018 15:01 * Performing Lab Footnotes:* [facility] [id number] [address] - MD: DIRECTOR WILMAN OVIEDO Order: TROPONIN I QUANTITATIVE Specimen Source: BLOOD Body Site: LOINC Test Result Flag Range Unit Date 1Troponin-I <0.015 0.000-0.034 ng/ml 10/17/2018 11:26 Note: The 99th Percentile URL is 0.045 ng/mL for the Siemens Upperstrasburg Troponin I. The Joint Society of Cardiology/[place] College [employer]iology (ESC/ACC) and the National [...] the clinical event. * Performing Lab Footnotes:* [address] [place], [place] [id number] [place] [address] DENISE Bean MD: DIRECTOR WILMAN OVIEDO Order: ACETAMINOPHEN BLOOD Specimen Source: BLOOD Body Site: LOINC Test Result Flag Range Unit Date 1Acetaminophen <2 L 10-30 ug/ml 10/17/2018 10:10 * Performing Lab Footnotes:* [address] [place], [place] [id number] [place] [address] DENISE Bean MD: DIRECTOR WILMAN OVIEDO Order: ALCOHOL ETHANOL LEVEL SERUM Specimen Source: BLOOD Body Site: LOINC Test Result Flag Range Unit Date 1Alcohol % 0 0.00-0.00 % 10/17/2018 10:10 Note: Ethanol % 0.00 - 0.10 Sub-clinical 0.11 - 0.20 Emotional Instability 0.21 - 0.30 Confusion 0.31 - 0.40 Stupor 0.41 - 0.50 Coma >.50 Fatal * Performing Lab Footnotes:* [address] [place], [place] [id number] [place] [address] DENISE Bean MD: DIRECTOR WILMAN OVIEDO Order: CBC PLATELET AUTO DIFF Specimen Source: BLOOD Body Site: LOINC Test Result Flag Range Unit Date 88412-6 1Leukocytes^^corrected for nucleated erythrocytes:NCnc:Pt:Bld:Qn:Automated count 9.92 4.80-10.80 10^3/ul 10/17/2018 10:10 789-8 1Erythrocytes:NCnc:Pt:Bld:Qn:Automated count 4.06 L 4.70-6.10 10^6/ul 10/17/2018 10:10 718-7 1Hemoglobin:MCnc:Pt:Bld:Qn 12.7 L 14.0-18.0 gm/dl 10/17/2018 10:10 4544-3 1Hematocrit:VFr:Pt:Bld:Qn:Automated count 37.3 L 42.0-50.0 % 10/17/2018 10:10 787-2 1Erythrocyte mean corpuscular volume:EntVol:Pt:RBC:Qn:Automated count 91.9 80.0-94.0 fL 10/17/2018 10:10 785-6 1Erythrocyte mean corpuscular hemoglobin:EntMass:Pt:RBC:Qn:Automated count 31.3 H 27.0-31.0 pg 10/17/2018 10:10 786-4 1Erythrocyte mean corpuscular hemoglobin concentration:MCnc:Pt:RBC:Qn:Automated count 34 33.0-37.0 gm/dl 10/17/2018 10:10 788-0 1Erythrocyte distribution width:Ratio:Pt:RBC:Qn:Automated count 18.9 H 11.5-14.5 % 10/17/2018 10:10 777-3 1Platelets:NCnc:Pt:Bld:Qn:Automated count 403 H 130-400 10^3/ul 10/17/2018 10:10 72966-5 1Platelet mean volume:EntVol:Pt:Bld:Qn:Automated count 9.6 A 7.4-10.4 fL 10/17/2018 10:10 770-8 1Neutrophils/100 leukocytes:NFr:Pt:Bld:Qn:Automated count 75.6 H 42.0-75.0 % 10/17/2018 10:10 736-9 1Lymphocytes/100 leukocytes:NFr:Pt:Bld:Qn:Automated count 13.6 13.0-42.0 % 10/17/2018 10:10 5905-5 1Monocytes/100 leukocytes:NFr:Pt:Bld:Qn:Automated count 9 4.0-14.0 % 10/17/2018 10:10 713-8 1Eosinophils/100 leukocytes:NFr:Pt:Bld:Qn:Automated count 0.8 L 1.0-5.0 % 10/17/2018 10:10 706-2 1Basophils/100 leukocytes:NFr:Pt:Bld:Qn:Automated count 0.5 0.0-3.0 % 10/17/2018 10:10 1IG% 0.5 H 0.0-0.4 % 10/17/2018 10:10 * Performing Lab Footnotes:* [address] [place] [id number] - MD: DIRECTOR WILMAN OVIEDO Order: CMP COMPREHENSIVE METABOLIC PANEL Specimen Source: BLOOD Body Site: LOINC Test Result Flag Range Unit Date 1Glucose 125 H 75-110 mg/dl 10/17/2018 10:10 1BUN 20 H 6.0-17.0 mg/dl 10/17/2018 10:10 1Creatinine 1.3 H 0.4-1.2 mg/dl 10/17/2018 10:10 1Sodium 130 L 137-145 mmol/l 10/17/2018 10:10 1Potassium 4.3 3.5-5.0 mmol/l 10/17/2018 10:10 1Chloride 89 L 98-107 mmol/l 10/17/2018 10:10 1CO2 29 22-30 mmol/l 10/17/2018 10:10 1Calcium 8.5 8.4-10.2 mg/dl 10/17/2018 10:10 1T Protein 7 5.1-8.7 gm/dl 10/17/2018 10:10 1Albumin 2.2 L 3.5-4.6 gm/dl 10/17/2018 10:10 1A/G Ratio 0.5 L 1.1-2.2 % 10/17/2018 10:10 1AST (SGOT) 26 11-36 U/L 10/17/2018 10:10 1ALT (SGPT) 17 11-40 U/L 10/17/2018 10:10 1Alkaline Phos 123 H 47-114 U/L 10/17/2018 10:10 1Total Bilirubin 2.6 H 0.2-1.2 mg/dl 10/17/2018 10:10 1Globulin 4.8 H 2.3-3.5 gm/dl 10/17/2018 10:10 1Calcium, Corrected 9.9 8.4-10.2 mg/dl 10/17/2018 10:10 Note: Various formulas exist for corrected serum calcium results, each yielding different values. This corrected result was based on the formula: Corrected Calcium=SerumCalcium + [0.8 * ( 4 - SerumAlbumin)] 1EGFR if >60 mL/min/1.73m^2 10/17/2018 10:10 1EGFR if Non- >60 mL/min/1.73m^2 10/17/2018 10:10 Note: Estimated Glomerular Filtration Rate (eGFR) Reference [...] chronic kidney failure. * Performing Lab Footnotes:* [address] [place], [place] [id number] - [address] [place] [address] DENISE Bean MD: DIRECTOR WILMAN OVIEDO Order: PRO BNP B - NATRIURETIC PEPTIDE Specimen Source: BLOOD Body Site: LOINC Test Result Flag Range Unit Date 1Pro-BNP(B-Peptide) 40824 HH 0-125 pg/ml 10/17/2018 10:10 * Performing Lab Footnotes:* [address] [place], [place] [id number] - [address] [place] [address] DENISE eBan MD: DIRECTOR WILMAN OVIEDO Order: SALICYLATES ASPIRIN Specimen Source: BLOOD Body Site: LOINC Test Result Flag Range Unit Date 1Salicylate <2.8 0.0-30.0 mg/dl 10/17/2018 10:10 Note: Salicylates Reference Ranges: Therapeutic 15 - 30 mg/dl Toxicity >30 mg/dl Lethal >70 mg/dl * Performing Lab Footnotes:* [address] [place] [address] [id number] - [address] [place] [address] DENISE Bean MD: DIRECTOR WILMAN OVIEDO Order: TSH ULTRA SENSITIVE Specimen Source: BLOOD Body Site: LOINC Test Result Flag Range Unit Date 1TSH 7.14 H 0.47-4.68 mIU/L 10/17/2018 10:10 * Performing Lab Footnotes:* [id number] [address] - MD: DIRECTOR WILMAN OVIEDO Radiology Results Order: [id number] CT HEAD W/O CONTRAST* Exam Completion Date:10/17/2018 15:59 CT HEAD W/O CONTRASTOrdering Provider: MINE WALTERSHistory: [id number]: Altered mental status Comparison studies: None. Technique: Noncontrast axial scans wer e obtained from skull base to the vertex. Coronaland sagittal reconstructions o btained from the axial data. One or more of thefollowing dose reduction techniq ues were used: Automated exposure control,adjustment of the mA and/or kV accordi ng to patient size, and/or utilization ofiterative reconstruction technique.DISC USSION:Scalp/Skull: Unremarkable.Brain sulci: Appropriate for patient's age.Vent ricles: Normal in size and configuration. No hydrocephalus.Extra-axial spaces: There is a small arachnoid cyst along the anterior righttemporal pole. No additi onal masses or fluid collections. Parenchyma: No abnormal densities.No garcia s, hemorrhage, or large vascular territory acute infarct.Dural sinuses: No abno rmal densities.Sellar/Suprasellar region: Intact.Skull base: Intact.Incidental f indings: None.IMPRESSION:1. No acute intracranial abnormalities.2. Small right middle cranial fossa arachnoid cyst.This final report was electronically signed by Dr Mansoor Pretty MD 10/17/20184:28 PMDictated By: Jasen PRETTYte: 16:28 Order: [id number] CT CHEST W/CONTRAST* Exam Completion Date:10/17/2018 14:23 EXAM: CT Chest WITH contrast 10/17/2018 2:23 PMINDICATION: [id number]: Acute respir atory failure. Shortness of breath. COMPARISON: Chest x-ray October 17, 2018TECHNI QUE:Chest was scanned utilizing a multidetector helical scanner from the lung ap exthrough the level of the adrenal glands without administration of IV contrast. Coronal and sagittal reformations were obtained. Routine protocol was performed. IV CONTRAST: 100 mL of Isovue 300COMPLICATIONS: NoneRADIATION DOSE: To alee DLP: 844 mGy*cm Estimated effective dose: (DLP x 0.014 x size factor) mS v CTDIvol has been reviewed. It is below the limits set by the RadiationProt ocol Committee (RPC).Dose modulation, iterative reconstruction, and/or weight ba sed adjustments ofthe mA/kV was utilized to reduce the radiation dose to as low as reasonablyachievable.FINDINGS:LINES/ TUBES: None.LUNGS AND AIRWAYS: Multiple pulmonary emboli involving segmental branches in bilateral lungs.Right lower lob e atelectasis with significant areas of hypo-enhancement, likelypulmonary infarc ts. Mottled groundglass opacities in the dependent portion ofthe right middle lo be, possibly a combination of aspiration or pulmonaryinfarcts. More rounded nodu lar opacities in the anterior right upper lobeextending to the pleura. Mottled g roundglass opacity in the left lower lobe inthe distribution of another pulmonar y emboli, which may represent pulmonaryinfarct versus aspiration/pneumonia.Calci fied granuloma in the left upper lobe. Airways are normal.PLEURA: Large right an d small left pleural effusions.HEART AND MEDIASTINUM: The thyroid gland is nicole l. No mediastinal, hilar oraxillary lymphadenopathy. The heart is moderately e nlarged. Left ventricularmyocardial thinning. Questionable hypoenhancing area ne ar the left ventricularapex, possibly a thrombus (series 4, image 52). Thrombus in the left atrialappendage (series 4, image 37). Enlarged right atrium and righ t ventricle withstraightening of the interventricular septum. Mild reflux of con trast into theright hepatic veins. There is no pericardial effusion. UPPER A BDOMEN: Mild nonspecific mesenteric edema in the upper abdomen. Upperabdomen is otherwise grossly unremarkable.BONES: The visualized bony thorax is within nicole l limits.SOFT TISSUES: Unremarkable.IMPRESSION: 1. Bilateral segmental pulmonar y emboli with associated pulmonary infarcts.2. The pulmonary findings are a com bination of pulmonary infarcts andaspiration/pneumonia3. Thrombus in the left a trial appendage and possibly in the left ventricle.This would result in the syst emic emboli.4. Large right pleural effusion. Small left pleural effusion.Result s were discussed with Annie, patient's provider, by Dr. Pate on October a t 3:10 PM.This final report was electronically signed by Dr Art Pate MD 9 3:16 PMDictated By: MONIE PATEate: 10/17/2018 15:16 Order: [id number] XR CHEST AP/PA 1 VIEW* Exam Completion Date:10/17/2018 09:49 ORIGINALEXAM: XR CHEST A P/PA 1 VIEWINDICATION: Shortness of breath, chest pain, history of smokingCOMPAR STEPHANIE: NoneFINDINGS:TIME OF EXAM: 1011 hoursCARDIOMEDIASTINAL SILHOUETTE: The h eart is enlarged. The aorta is normal in morphology. Central pulmonaryvasculatur e is prominent.LINES/TUBES: None. LUNGS: The pulmonary vascular markings are n ormal. Lung volumes are low. There is infiltrate and associated atelectasis in t heright midlung field and lower lobe. Retrocardiac airspace opacity is present. Patchy airspace opacity in the left midlung field measures 3.6 cm. Calcifiedgran uloma in the left midlung field measures 5 mm.PLEURA: No large effusions. A rig ht pleural effusion is suspected.There is no pneumothorax. BONES/SOFT TISSUES: The osseous structures demonstrate a bony bridge between the acromion andcoracoi d process. This may be the result of remote injury.The soft tissues are unremark able.IMPRESSION:1. Cardiomegaly and central vascular congestion.2. Right basil ar airspace opacity is suggestive of pneumonia with associatedatelectasis and li papa small effusion. Please correlate with signs/symptoms ofinfection. Recommen d short-term followup with PA and lateral x-ray to documentinterval change/resol ution and to exclude neoplastic process.3. Retrocardiac airspace opacity either atelectasis or infiltrate. Smalleffusion cannot be excluded.This final report wa s electronically signed by Dr Ria Wheat MD 10/17/201810:25 AMDictated By: RIA WHEATDate: 10/17/2018 10:25ADDENDUM Under the section entitled 'Lungs', the first sentence sh ould be deleted.This final report was electronically signed by Dr Ria daigle MD 10/17/20181:17 PMDictated By: RIA WHEATDate: 10/17/2018 13:17 Vital Signs Vitals Value Date Pulse Rate 110 (beats)/min 10/17/2018 Respiratory Rate 18 (breaths)/min 10/17/2018 O2% BldC Oximetry 98 % 10/17/2018 BP Systolic 99 mmHg 10/17/2018 BP Diastolic 84 mmHg 10/17/2018 Height 67 in 10/17/2018 Weight Measured 282 lbs 10/17/2018 BSA (Body Surface Area) 2.19146 m2 10/17/2018 BMI (Body Mass Index) 44.2 kg/m2 10/17/2018 Advance Directives Patient does NOT have Living Will Directive Type Effective Date New Car Inspector Notes Supporting Document Name Address Phone No Directive Type specified 10/17/2018 09:55 Not Specified Not Specified Not Specified None No Family History * No Data Reported Plan of Care * No data in the system Procedures Code Code System Procedure Name Target Site Date of Procedure CT HEAD W/O CONTRAST 10/17/2018 16:34 XR CHEST AP/PA 1 VIEW 10/17/2018 13:24 Encounters Date Code Diagnosis Status (ICD10) - I4891 UNSPECIFIED ATRIAL FIBRILLATION Active Immunizations * No data in the system Functional Status * No data in the system Hospital Discharge Instructions * No data in the system
[2018-12-12] MEDS ORDERED: AMIODARONE 900MG 500 ML IV ONE (23:15)
[2018-12-13] VITALS (20 sets, daily range): BP systolic 83–133; BP diastolic 55–122
[2018-12-13] MEDS ORDERED: ONDANSETRON HCL INJ 2MG/ML 2ML 2 MG/ML VIAL IV STA (02:42)
[2018-12-13] MEDS ORDERED: AMIODARONE 900MG 500 ML IV ONE ×2 (05:00→20:40)
[2018-12-13 05:33] LABS: BASOPHILS # (AUTO) 0.1 (0.0-0.1); BASOPHILS % 0.9 % (0.0-1.0); EOSINOPHILS # (AUTO) 0.1 (0.0-0.4); HEMATOCRIT 36.9 % (38.2-49.6); HEMOGLOBIN 12.7 g/dL (14.0-18.0); LYMPHOCYTES # (AUTO) 1.1 (1.0-3.2); LYMPHOCYTES % 12.6 % (18.0-39.1); MEAN CORPUSCULAR HEMOGLOBIN 30.9 pg (28-32); MEAN CORPUSCULAR HGB CONC 34.4 g/dL (31-35); MEAN CORPUSCULAR VOLUME 89.8 fL (81-99); MONOCYTES # (AUTO) 0.9 (0.2-0.8); MONOCYTES % 9.8 % (4.4-11.3); NEUTROPHILS # (AUTO) 6.7 (2.1-6.9); NEUTROPHILS % 74.8 % (38.7-80.0); PLATELET COUNT 339 x10e3/uL (140-360); RED BLOOD COUNT 4.11 x10e6/uL (4.3-5.7); RED CELL DISTRIBUTION WIDTH 17.5 % (11.7-14.4)
[2018-12-13 05:56] LABS: ALANINE AMINOTRANSFERASE 14 IU/L (0-55); ALBUMIN 2.5 g/dL (3.5-5.0); ALBUMIN/GLOBULIN RATIO 0.5 (0.8-2.0); ALKALINE PHOSPHATASE 91 IU/L (40-150); ANION GAP 17.9 mmol/L (8-16); BLOOD UREA NITROGEN 11 mg/dL (7-26); BUN/CREATININE RATIO 11 (6-25); CALCIUM 9.2 mg/dL (8.4-10.2); CARBON DIOXIDE 20 mmol/L (22-29); CHLORIDE 96 mmol/L (98-107); CHOL/HDL RATIO 3.7 (3.9-4.7); CHOLESTEROL 116 MD/DL (0-199); CREATININE, SERUM 1.03 mg/dL (0.72-1.25); EST GLOMERULAR FILTRATION RATE > 60 ML/MIN (60-); GLUCOSE 103 mg/dL (74-118); HDL CHOLESTEROL 31 MG/DL (40-60); LDL CHOLESTEROL 75 MG/DL (60-130); POTASSIUM 3.9 mmol/L (3.5-5.1); SODIUM 130 mmol/L (136-145); TRIGLYCERIDES 52 MG/DL (0-149)
[2018-12-13 06:13] LABS: CREATINE KINASE MB 0.8 ng/mL (0-5.0)
--- NOTE | 2018-12-13 06:50 | NUR ---
report given to andrez hernandez
[2018-12-13] MEDS: ONDANSETRON HCL INJ 2MG/ML 2ML 2 MG/ML VIAL IV PRN (07:58)
[2018-12-13] MEDS ORDERED: ZOLPIDEM TARTRATE 5 MG TAB PO PRN (08:15)
--- NOTE | 2018-12-13 08:45 | NUR ---
Patient to Room 190; Dr Chris Ariza to bedside; orders rec'd.
--- NOTE | 2018-12-13 08:56 | History and Physical ---
The patient reports worsening dyspnea and fast heart rate. HISTORY OF PRESENT ILLNESS: The patient is a 48-year-old man. He was hospitalized at [facility] late last month with systolic cardiomyopathy, atrial fibrillation, and acute decompensation. He was evaluated by Cardiology and had an echocardiogram that showed a decreased ejection fraction of 20% to 25%. He also had a cardiac catheterization that showed no coronary artery disease. He was scheduled to have a pacemaker and AICD, but left prior to having the procedure done. He now complains of worsening dyspnea and congestion. He notes cough and fevers. He also complains of palpitation and a fast heart rate. He was seen in the emergency department and found to have atrial fibrillation with a rapid ventricular rate. PAST SURGICAL HISTORY: History of recent cardiac catheterization. PAST MEDICAL HISTORY: 1. Prior pulmonary embolism. 2. Atrial fibrillation. 3. Systolic cardiomyopathy. SOCIAL HISTORY: The patient has difficulty with his residence and has been fairly transient recently. He has history of some drinking, although the quantity is not clear. He has no recent smoking history. He has no history of recent illicit drug use. FAMILY HISTORY: Family history is noncontributory. REVIEW OF SYSTEMS: There is no fever. He has no headache. He has no chest pain. He has no abdominal pain. He has no nausea or vomiting. He has some dyspnea. He has palpitations. He has no chest pain. He has no leg edema. He has no focal neurological complaints. ALLERGIES: THERE ARE NO KNOWN DRUG ALLERGIES. PHYSICAL EXAMINATION: VITAL SIGNS: Blood pressure is 101/80 and the heart rate is 110 to 120 and is an irregularly irregular rhythm. He is currently on amiodarone drip. He is also on oxygen. HEENT: Shows no facial swelling or erythema. The nasal mucosa is normal. The oropharynx is normal. LYMPHATIC: Shows no submandibular, cervical, or supraclavicular adenopathy. CARDIAC: Reveals an irregularly irregular rhythm with a normal S1 and S2. There are no murmurs or rubs. LUNGS: Auscultation of lungs reveals crackles in both lung zavala. There is no wheezing. ABDOMEN: Soft and nontender. There is no rebound or guarding. EXTREMITIES: Examination of the extremities shows no leg edema or calf tenderness. There is no cyanosis or clubbing. SKIN: Shows no rashes. NEUROLOGICAL: Shows no focal abnormalities. LABORATORY DATA: White blood cell count is 8.9 and hemoglobin is 12.7. The platelet count is 339. The sodium is 130 and the potassium is 3.9. The BUN to creatinine ratio is 11 to 1.03. The AST and ALT are within normal limits. The BNP is elevated to 1700. Albumin is 2.5. RADIOGRAPHIC DATA: Chest x-ray shows bilateral pleural effusions and bilateral lower lobe segmental atelectasis. It is consistent with congestive heart failure. IMPRESSION: 1. Ofqsl-sv-jpqgymc systolic congestive heart failure. 2. Atrial fibrillation with rapid ventricular rate. 3. Bipolar illness. 4. Hyponatremia. 5. Remote history of pulmonary embolism. PLAN: 1. The patient has been restarted on an amiodarone drip along with Coreg and digoxin. 2. Cardiology is to re-evaluate the patient. 3. Possible pacemaker and AICD. 4. Psychiatry consultation. 5. Anticoagulation. 6. Case discussed with the patient, Dr. Poon of Emergency Medicine, and nursing staff. Greater than 35 minutes in direct critical care time. MD LEONIDAS Rudolph/MIKE /[phone]
[2018-12-13] MEDS: POTASSIUM CHLORIDE 20 MEQ TAB CR PO SCH (09:02)
[2018-12-13] MEDS: ENOXAPARIN SODIUM INJ 100 MG/ML SYR SC SCH ×2 (09:02→20:42)
[2018-12-13] MEDS: CARVEDILOL 3.125 MG TAB PO SCH ×2 (09:06→17:00)
[2018-12-13] MEDS: SPIRONOLACTONE 25 MG TAB PO SCH (09:07)
[2018-12-13] MEDS: RISPERIDONE 0.5 MG TAB PO PRN (09:07)
--- NOTE | 2018-12-13 11:00 | NUR ---
Left message on voicemail for Marissa Henriquez regarding consult. utility pipe layer left message for Dr Santillan via answering service at 0900.
[2018-12-13] MEDS: LEVALBUTEROL HCL SOLN NEBU 1.25 MG/3 ML NEB INH PRN (11:15)
--- NOTE | 2018-12-13 12:30 | NUR ---
Dr Ruiz to bedside; orders rec'd.
--- NOTE | 2018-12-13 13:15 | NUR ---
Nutrition Screen Note RD Recommendation for Physician: Continue diet as ordered Plan of Care: RD following, monitoring for adequacy and tolerance Nutrition reason for involvement: Nutrition Risk Trigger - MST Primary Diagnose(s): atrial fibrillation with RVR , chest pain Ht:67 in Wt:203lbs BMI:31.8 kg/m2 IBW:148lbs RD Assessment:(12/13/2018) Initial encounter with patient. Pt with a decreased appetite/Po intake at this time. No N,V,D. No difficulty chewing or swallowing Current Diet: Cardiac diet Malnutrition Evaluation 12/13/2018 The patient does not meet criteria for a specified degree of malnutrition at this time. Will re-evaluate at follow-up as appropriate. Diet Education Needs Assessment: Diet education not indicated. Diet Adequacy: Meeting calorie needs, Meeting protein needs, Meeting fluid needs Tolerance: Tolerating PO Nutrition Care Level: Casey Taylor RD, LD, [facility]
--- NOTE | 2018-12-13 13:30 | NUR ---
Dr Chris Ariza to bedside; orders rec'd.
[2018-12-13] MEDS: LISINOPRIL 10 MG TAB PO SCH (13:44)
[2018-12-13] MEDS: FUROSEMIDE INJ 10 MG/ML 2 ML VIAL IV SCH ×2 (13:45→17:00)
[2018-12-13] MEDS ORDERED: FUROSEMIDE INJ 10 MG/ML 2 ML VIAL IV ONE (14:30)
--- NOTE | 2018-12-13 14:41 | NUR ---
CM TO BEDSIDE TO DISCUSS PLAN OF CARE WITH PT. CM ROLE AND CARE TRANSITIONS DISCUSSED. ANTICIPATED DISCHARGE PLAN DISCUSSED ALONG WITH DURATION OF CARE. CM DISCUSSED PATIENT'S RIGHT TO MAKE DECISIONS IN CARE. 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
--- NOTE | 2018-12-13 17:18 | NUR ---
Paged Dr Mathew. Called Chris Ariza, orders rec'd.
[2018-12-13] MEDS: DIGOXIN 0.25 MG TAB PO SCH (17:22)
[2018-12-13 18:40] LABS: ALBUMIN 2.3 g/dL (3.5-5.0); ALBUMIN/GLOBULIN RATIO 0.6 (0.8-2.0); ANION GAP 15.2 mmol/L (8-16); CALCIUM 8.8 mg/dL (8.4-10.2); CREATININE, SERUM 1.35 mg/dL (0.72-1.25); POTASSIUM 4.2 mmol/L (3.5-5.1)
--- NOTE | 2018-12-13 18:54 | NUR ---
Spoke with Dr Mathew; he left cell number to pass to night nurse. Patient SBP okay to be 80-90. Patient up to BSC and had large BM then able to sit at bedside eating dinner. Bladder scan shows 11 mL. Report given to COLTEN Cordero.
--- NOTE | 2018-12-13 19:00 | NUR ---
Report received. Assumed care. Assessment done. See interventions.
--- NOTE | 2018-12-13 19:33 | Consultation ---
DATE OF CONSULTATION: 12/13/2018 Cardiology Consultation Thank you, Dr. Alfie Ariza for this consultation. I am quite familiar with Mr. Madi Greenwood, who was in this hospital about maybe one week ago. The patient at this time is already seen by Dr. Alfie Ariza and appropriate treatment has already been started and I saw the patient in ICU. The patient is sleeping, but the patient not in acute congestive heart failure, the patient's atrial fibrillation is also fairly well controlled with amiodarone. The patient has already started Lovenox. The patient is on Coreg and digoxin. Add Lasix 20 mg IV twice a day and also add lisinopril 10 mg once a day and the patient is already getting Aldactone. The patient's echocardiogram showed ejection fraction less than 20%, decreased since last admission and the patient has bilateral pleural effusion. The patient is on Lovenox also. The patient at this time is quite comfortable, is not very anxious. At this time, we had to treat this acute on chronic congestive heart failure with IV Lasix and other medications. I will discuss further treatment tomorrow with the patient and the patient has some psychiatric issues like bipolar disorder. The patient also used to drink alcohol in the past. Coronary angiogram done during last admission at this hospital found to be normal and the patient is a known patient with nonischemic cardiomyopathy. We will continue present medication and keep him in ICU. The patient may need thoracentesis and I will leave it to Dr. Alfie Ariza about recommendation of thoracentesis. Cardiac-monsalve, the patient is quite stable. The patient also has history of remote pulmonary emboli. The patient has 1 to 2+ pedal edema. Short systolic murmur in the mitral area is noted. Lungs, breath sounds are decreased in bilateral bases because of pleural effusion. His oxygen saturation is reported 96%. Heart rate is 103 per minute. Renal function is normal. Troponins are negative. IMPRESSION: 1. Acute on chronic congestive heart failure. 2. Nonischemic cardiomyopathy, EF 20%. 3. Bipolar disorder. The patient has remote history of pulmonary embolism and also possible deep vein thrombosis. We will continue present medications. Thank you, Dr. Ariza, for this consultation. Rosemary Mathew MD [facility]/MIKE Traylor: 12/13/2018 12:29:30 /[id number]
--- NOTE | 2018-12-13 20:06 | NUR ---
Called CMP results to Dr. Ariza. Orders to repeat lab in am.
[2018-12-13] MEDS ORDERED: AMIODARONE 900MG 500 ML IV SCH (21:00)
[2018-12-14] VITALS (24 sets, daily range): BP systolic 72–141; BP diastolic 52–119
[2018-12-14 04:38] LABS: BASOPHILS # (AUTO) 0.1 (0.0-0.1); BASOPHILS % 0.9 % (0.0-1.0); EOSINOPHILS # (AUTO) 0.5 (0.0-0.4); EOSINOPHILS % 4.9 % (0.0-6.0); HEMATOCRIT 34.6 % (38.2-49.6); LYMPHOCYTES # (AUTO) 1.7 (1.0-3.2); LYMPHOCYTES % 16.5 % (18.0-39.1); MEAN CORPUSCULAR HEMOGLOBIN 31.2 pg (28-32); MEAN CORPUSCULAR HGB CONC 34.7 g/dL (31-35); MEAN CORPUSCULAR VOLUME 89.9 fL (81-99); MONOCYTES # (AUTO) 0.8 (0.2-0.8); MONOCYTES % 7.2 % (4.4-11.3); NEUTROPHILS # (AUTO) 7.4 (2.1-6.9); NEUTROPHILS % 69.9 % (38.7-80.0); PLATELET COUNT 300 x10e3/uL (140-360); RED BLOOD COUNT 3.85 x10e6/uL (4.3-5.7); RED CELL DISTRIBUTION WIDTH 17.3 % (11.7-14.4)
[2018-12-14 04:57] LABS: ALBUMIN 2.5 g/dL (3.5-5.0); ALBUMIN/GLOBULIN RATIO 0.6 (0.8-2.0); ANION GAP 14.6 mmol/L (8-16); CALCIUM 9.1 mg/dL (8.4-10.2); CREATININE, SERUM 1.54 mg/dL (0.72-1.25); POTASSIUM 4.6 mmol/L (3.5-5.1)
--- NOTE | 2018-12-14 05:44 | NUR ---
Self basin bath done. Bed linens changed.
--- NOTE | 2018-12-14 07:03 | Diagnostic Imaging Report ---
EXAMINATION: CHEST SINGLE (PORTABLE) INDICATION: ^comparison ^[id number] ^0530 ^Y COMPARISON: 12/12/2018 FINDINGS: AP view TUBES and LINES: None. LUNGS and pleura: Limited by body habitus. Pulmonary vascular congestion, mild interstitial edema, and bilateral pleural effusions. HEART AND MEDIASTINUM: The cardiac silhouette is enlarged. BONES AND SOFT TISSUES: No acute osseous lesion. Soft tissues are unremarkable. UPPER ABDOMEN: No free air under the diaphragm. IMPRESSION: Enlarged cardiac silhouette, pulmonary vascular congestion, mild interstitial edema, and moderate size bilateral pleural effusions. Underlying pneumonia cannot be excluded in the bilateral mid to lower lung zavala in the appropriate clinical context. These findings are not significantly changed when compared to prior x-ray. Signed by: Dr. Diego Royal MD on 12/14/2018 6:59 AM
[2018-12-14] MEDS ORDERED: LISINOPRIL 10 MG TAB PO SCH (09:00)
[2018-12-14] MEDS: ENOXAPARIN SODIUM INJ 100 MG/ML SYR SC SCH (09:59)
[2018-12-14] MEDS: CARVEDILOL 3.125 MG TAB PO SCH ×2 (09:59→18:19)
[2018-12-14] MEDS: POTASSIUM CHLORIDE 20 MEQ TAB CR PO SCH (10:01)
[2018-12-14] MEDS: SPIRONOLACTONE 25 MG TAB PO SCH (10:53)
[2018-12-14] MEDS: FUROSEMIDE INJ 10 MG/ML 2 ML VIAL IV SCH ×2 (10:53→18:19)
[2018-12-14] MEDS: LISINOPRIL 10 MG TAB PO SCH (10:57)
--- NOTE | 2018-12-14 12:37 | Progress Note ---
DATE: 12/14/2018 Pulmonary Critical Care Progress Note SUBJECTIVE: The patient still has some dyspnea. He is not complaining of chest pain. He has no fevers. PHYSICAL EXAMINATION: VITAL SIGNS: The patient is afebrile. The blood pressure is 99/70 and the saturation is 95% on 2 L. The pulse is 96. HEENT: Shows no facial swelling or erythema. The nasal mucosa is normal. The oropharynx is normal. LYMPHATIC: Shows no submandibular, cervical, or supraclavicular adenopathy. CARDIAC: Reveals regular rate and rhythm with normal S1 and S2. LUNGS: Auscultation of lungs reveals decreased breath sounds at the bases. There is no wheezing. ABDOMEN: Soft and nontender. There is no rebound or guarding. EXTREMITIES: Show no leg edema or calf tenderness. There is no cyanosis or clubbing. SKIN: Shows no rashes. NEUROLOGICAL: Shows no focal abnormalities. LABORATORY DATA: Sodium is 128 and the BUN to creatinine ratio is 19:1.54. The total bilirubin is 2.4 and the AST is 3928. The ALT is 1679. IMPRESSION: 1. Acute on chronic systolic congestive heart failure. 2. Passive congestion of the liver with associated hepatic inflammation. 3. Atrial fibrillation with rapid ventricular response. 4. Bipolar disorder. 5. Remote history of pulmonary embolism. PLAN: 1. The patient will have an ultrasound-guided thoracentesis. We will hold the Lovenox in preparation. 2. Continue current regimen for atrial fibrillation along with diuretics. 3. Hepatology consultation. 4. Arrange for AICD and pacemaker. Alfie Ariza MD [facility] /[id number]
--- NOTE | 2018-12-14 13:37 | NUR ---
Consult called to Dr Kingsley Linares personnel worker.
--- NOTE | 2018-12-14 17:18 | Consultation ---
DATE OF CONSULTATION: 12/14/2018 HISTORY OF PRESENT ILLNESS: This is a 48-year-old, who has a history of cardiomyopathy. He has atrial fibrillations, having ejection fraction less than 20% to 25%, presented to the hospital because of worsening dyspnea and congestion. GI consult is obtained because of elevated liver function tests. His LFTs went up as high as 38, 29 and LFT is 16, 79. The patient has no abdominal pain. The patient does have some nausea and vomiting. He is also mildly anemic with hemoglobin of 12. He does not have any history of hepatitis in the past. PAST MEDICAL HISTORY: Significant for history of congestive heart failure with an EF of 20% of 25%, history of atrial fibrillation, possible pacemaker as well as AICD, history of prior pulmonary emboli. ALLERGIES: NONE. SOCIAL HISTORY: Denies any alcohol use. FAMILY HISTORY: Noncontributory. REVIEW OF SYSTEMS: Denies any chest pain at this point. Denies any shortness of breath. Denies any dysphagia, odynophagia. Denies any dysuria, hematuria, or any kind of syncopal episode. PHYSICAL EXAMINATION: GENERAL: The patient is awake, alert, appears to be stable and not in acute distress at this point. VITAL SIGNS: Afebrile, currently with stable vital signs. HEAD, EYES, EARS, NOSE, AND THROAT: Normocephalic, atraumatic. Sclerae are anicteric. NECK: Supple. HEART: Regular. LUNGS: Clear. ABDOMEN: Soft. There is no distension at this point. It is nontender. EXTREMITIES: There is no clubbing. LAB VALUES: WBC of 10.57, hemoglobin of 12.0, hematocrit 34.6. Liver enzymes; bilirubin 2.4, AST of 39, 28 and ALT of 16, 79. Sodium 128, BUN significant 1.54. Hepatitis binding. IMPRESSION: 1. Elevated troponin in the past likely secondary to ischemic hepatopathy and probably congestive hepatopathy. 2. Mild anemia. 3. History of CHF, now has acute exacerbations. 4. Atrial fibrillations. RECOMMENDATION: Continue on optimizing cardiac functions and wait hepatitis panel. Obtain abdominal ultrasounds and follow labs. Marin Wynn MD [facility]/MODL /[id number] cc: MD Alfie Talamantes MD
[2018-12-14] MEDS: DIGOXIN 0.25 MG TAB PO SCH (17:19)
--- NOTE | 2018-12-14 19:00 | NUR ---
Report received. Assumed care. Assessment done. See interventions. O2 per NC @ 2L. Amiodarone infusing @ 0.5mg/min.
--- NOTE | 2018-12-14 21:00 | NUR ---
Requests something to eat. [place] and milk given. Ate 100%.
--- NOTE | 2018-12-14 23:00 | NUR ---
Ambulated to restroom. Had small BM per pt. Not seen.
[2018-12-15] VITALS (23 sets, daily range): BP systolic 85–139; BP diastolic 62–125
--- NOTE | 2018-12-15 00:19 | Progress Note ---
DATE: SUBJECTIVE: The patient is symptomatically better. The patient's blood pressure 100/70. At this time, Lasix, lisinopril, and Coreg were held because of blood pressure problems; however, the patient is quite stable without any major complaint. He is able to lie down flat, and the patient is going to have an AICD on Saturday. We will order Lovenox today and has already been held, and Dr. Alfie Ariza is going to perform thoracentesis in the morning and the patient was told about permanent pacemaker. He is agreeable for this procedure at this time. DIAGNOSES: As follows: 1. Nonischemic cardiomyopathy. 2. Normal coronary arteries. Left ventricular ejection fraction about 20% to 25%, and the patient is on anti-congestive heart failure medications; however, the patient is not able to tolerate a full dose of lisinopril or Coreg and also the patient did not take his medicines at home. At this time, they were given him in the hospital and because of hypotension held at this time and we will restart medications when the blood pressure is more than 100 mmHg. However, the patient is tolerating spironolactone. MD ALBERTO Valdez/MIKE /[id number]
[2018-12-15 04:43] LABS: BASOPHILS # (AUTO) 0.1 (0.0-0.1); BASOPHILS % 1.1 % (0.0-1.0); EOSINOPHILS # (AUTO) 0.8 (0.0-0.4); EOSINOPHILS % 7.8 % (0.0-6.0); HEMATOCRIT 34.5 % (38.2-49.6); LYMPHOCYTES # (AUTO) 1.5 (1.0-3.2); LYMPHOCYTES % 13.7 % (18.0-39.1); MEAN CORPUSCULAR HGB CONC 34.8 g/dL (31-35); MEAN CORPUSCULAR VOLUME 89.1 fL (81-99); MONOCYTES # (AUTO) 0.9 (0.2-0.8); MONOCYTES % 8.5 % (4.4-11.3); NEUTROPHILS # (AUTO) 7.2 (2.1-6.9); NEUTROPHILS % 68.3 % (38.7-80.0); PLATELET COUNT 295 x10e3/uL (140-360); RED BLOOD COUNT 3.87 x10e6/uL (4.3-5.7); RED CELL DISTRIBUTION WIDTH 17.7 % (11.7-14.4)
[2018-12-15 05:05] LABS: ALANINE AMINOTRANSFERASE 1047 IU/L (0-55); ALBUMIN 2.3 g/dL (3.5-5.0); ALBUMIN/GLOBULIN RATIO 0.6 (0.8-2.0); ALKALINE PHOSPHATASE 109 IU/L (40-150); ANION GAP 12.3 mmol/L (8-16); BLOOD UREA NITROGEN 21 mg/dL (7-26); BUN/CREATININE RATIO 19 (6-25); CALCIUM 8.8 mg/dL (8.4-10.2); CARBON DIOXIDE 28 mmol/L (22-29); CHLORIDE 93 mmol/L (98-107); CREATININE, SERUM 1.09 mg/dL (0.72-1.25); EST GLOMERULAR FILTRATION RATE > 60 ML/MIN (60-); GLUCOSE 89 mg/dL (74-118); POTASSIUM 4.3 mmol/L (3.5-5.1); SODIUM 129 mmol/L (136-145)
[2018-12-15] MEDS: ONDANSETRON HCL INJ 2MG/ML 2ML 2 MG/ML VIAL IV PRN (07:49)
[2018-12-15] MEDS: CARVEDILOL 3.125 MG TAB PO SCH ×2 (08:00→17:00)
[2018-12-15] MEDS: POTASSIUM CHLORIDE 20 MEQ TAB CR PO SCH (09:00)
[2018-12-15] MEDS: LISINOPRIL 10 MG TAB PO SCH (09:00)
[2018-12-15] MEDS: SPIRONOLACTONE 25 MG TAB PO SCH (09:00)
[2018-12-15] MEDS: FUROSEMIDE INJ 10 MG/ML 2 ML VIAL IV SCH ×2 (09:00→17:06)
--- NOTE | 2018-12-15 12:48 | NUR ---
Dr. Wilson called and I spoke to Sophia regarding patient c/o of chest pain and radiating to right shoulder. She will be paging him.
--- NOTE | 2018-12-15 13:24 | Diagnostic Imaging Report ---
Examination: Single AP view of the chest. COMPARISON: 12/14/2018 INDICATION: Status post thoracentesis DISCUSSION: Interval right thoracentesis with essentially complete evacuation of right pleural effusion. Minimal linear opacity persists in the right lung base compatible with atelectasis. No pneumothorax. Unchanged moderate left pleural effusion. Stable cardiomediastinal contour with pulmonary venous congestion. No acute osseous abnormality. IMPRESSION: Interval right thoracentesis with near complete evacuation of right pleural effusion. Minimal residual subsegmental atelectasis in the right lung base. No pneumothorax. Signed by: Dr. Jaskaran Max M.D. on 12/15/2018 1:20 PM
--- NOTE | 2018-12-15 13:39 | Diagnostic Imaging Report ---
EXAM: US ABDOMEN COMPLETE DATE: 12/15/2018 12:00 AM Time stamp on exam: INDICATION: Elevated LFTs COMPARISON: None TECHNIQUE: Transverse and longitudinal bell scale and color doppler sonographic images of the upper abdomen were obtained. FINDINGS: LIVER 14.8 cm in the right midclavicular line. Normal echogenicity, normal contour, no masses. SPLEEN 9.9 cm in maximum diameter. Normal echogenicity, no masses. GALLBLADDER The wall is mildly thickened. No shadowing calculus or pericholecystic fluid. Negative sonographic 's sign. BILE DUCTS No intra nor extra-hepatic biliary dilation. Common bile duct measures 0.4 cm PANCREAS: Proximal body is unremarkable. Remainder is poorly visualized. RIGHT KIDNEY: 12.7 cm Echogenicity: Normal Collecting System: No hydronephrosis Stones: None Cyst/Mass: None LEFT KIDNEY: 14.1 cm Echogenicity: Normal Collecting System: No hydronephrosis Stones: None Cyst/Mass: None VESSELS: Aorta: Nonaneurysmal proximally. Poorly visualized distally. Inferior Vena Cava: Patent Main Portal Vein: 0.7 cm, normal size with hepatopetal flow. FREE FLUID: None IMPRESSION: Gallbladder wall thickening is nonspecific in the setting of a negative sonographic sign and in the absence of cholelithiasis. This finding may relate to general volume overload or hypoproteinemia. Signed by: Dr. Jaskaran Max M.D. on 12/15/2018 1:36 PM
--- NOTE | 2018-12-15 13:48 | Diagnostic Imaging Report ---
Procedure: Ultrasound-guided right thoracentesis. heater operator: Dr. Max Pre-operative diagnosis: Moderate right pleural effusion Post-operative diagnosis: Moderate right pleural effusion. Conscious Sedation: None Additional Medications: Lidocaine 1% for local anesthesia Contrast used: None Estimated blood loss: Minimal Blood proximal administered: None Specimens: 1750 cc jarod-colored fluid Implants: None Condition at completion: Stable Disposition: In ICU Complications: No immediate DISCUSSION: Informed consent for the procedure was obtained from the patient and documented in the medical record. Preliminary sonographic evaluation showed presence of a moderate right and small left pleural effusion. The patient was placed in the upright position. The right lower back was prepped and draped in the standard sterile fashion. A suitable percutaneous intercostal approach to the right pleural space was identified and the overlying skin was infiltrated with 1% lidocaine for local anesthesia. Then under continuous sonographic guidance, a 5 Norwegian Yueh needle catheter was advanced into the pleural space. The catheter was advanced off the needle and connected to vacuum bottle with subsequent evacuation of 1750 cc of jarod-colored fluid. The catheter was removed and a sterile, occlusive dressing was applied. Postprocedure sonographic image showed no significant residual effusion. The patient tolerated the procedure well without immediate complication. Specimen was submitted for laboratory analysis as requested by the referring clinical team. IMPRESSION: Successful ultrasound-guided right thoracentesis with evacuation of 1750 cc jarod-colored fluid. Signed by: Dr. Jaskaran Max M.D. on 12/15/2018 1:44 PM
[2018-12-15 14:28] LABS: BODY FLUID COLOR YELLOW; BODY FLUID TYPE PLEURAL
[2018-12-15 14:29] LABS: BODY FLUID APPEARANCE SL.CLOUDY; RBC,BODY FLUID 682 cells/uL; WBC,BODY FLUID 132 cells/uL
[2018-12-15] MEDS: DIGOXIN 0.25 MG TAB PO SCH (17:05)
[2018-12-15 19:16] LABS: BASOPHILS,BODY FLUID 1 %; LYMPHOCYTES,BODY FLUID 59 %; MONO/MACROPHG,BODY FLUID 15 %; NEUTROPHILS,BODY FLUID 10 %; OTHER CELLS,BODY FLUID 15 %
--- NOTE | 2018-12-15 19:48 | Consultation ---
DATE OF CONSULTATION: 12/15/2018 Psychiatric Consultation REASON FOR CONSULTATION: To evaluate the patient's mood and psychosis. HISTORY OF PRESENT ILLNESS: The patient is a 48-year-old male admitted to the hospital for AFib, chest pain, and hypokalemia. Psychiatric consultation was called to evaluate the patient's mood and psychosis. As per the medical record, the patient was hospitalized recently at [facility]. His medical history includes pulmonary embolism, AFib, and systolic cardiomyopathy. He has a pacemaker and AICD. Upon evaluation today, the patient is found to be in the ICU. He is alert, awake, and oriented to situation. He is calm and cooperative. Thought process is concrete. He claims that he is feeling fair. Mood problems, the patient denies any depression, anxiety. He denies any suicidal or homicidal ideation; however, he admits to having auditory hallucination. The patient denies any hopeless and helpless. He reports intermittent sleep that he reports grossly, but denies any problem with appetite. PAST PSYCHIATRIC HISTORY: The patient reported history of bipolar for many years. He denies past suicide attempts. He claims he drinks alcohol occasionally. He denies any illegal drugs, but admits to smoking tobacco. FAMILY HISTORY: Denies. SOCIAL HISTORY: The patient is homeless. MENTAL STATUS EXAM: The patient is a middle-aged male. He is alert, awake, and oriented to situation. His mood is fair. He denies any suicidal or homicidal ideation. He reports auditory hallucinations. Thought process is concrete. He is a bit suspicious and paranoid, he believes the bill collectors are going to hurt him physically. His memory appears to be grossly intact. CURRENT MEDICATIONS: 1. Lasix. 2. Spironolactone. 3. Potassium chloride. 4. Carvedilol. 5. Ondansetron. 6. Digoxin. 7. Levalbuterol. 8. Risperdal p.r.n. 9. Lisinopril. 10. Ambien p.r.n. 11. Sodium chloride. CURRENT LABS: WBC 10.57, RBC 3.87, hemoglobin 12, hematocrit 34.5, platelets 295. Sodium 129, potassium 4.3, chloride 93, CO2 of 28, BUN 21, creatinine 1.09. AST 1310 and ALT 1047. ASSESSMENT: 1. Bipolar 1 disorder, recurrent depressed, mild to moderate with psychosis. 2. Alcohol use. PLAN: 1. Continue with Risperdal 0.5 mg p.o. twice a day as needed. 2. Continue with Ambien 5 mg p.o. at bedtime p.r.n. 3. Monitor for mood and psychosis. 4. We will hold off on scheduled medication at this time until labs improve. 5. Recommend total abstinence from alcohol. Thank you for this consultation. Dictated by Guerda Henriquez PA-C Kirsten Santillan MD [facility]/MODL /[id number]
[2018-12-15] MEDS ORDERED: AMIODARONE HCL 900 MG in DEXTROSE 5 % 500ML BOTTLE 482 ML IV SCH (21:00)
[2018-12-15] MEDS: ACETAMINOPHEN 325 MG TAB PO PRN (21:07)
--- NOTE | 2018-12-15 23:55 | Progress Note ---
DATE: Cardiology Progress Note SUBJECTIVE: The patient seen today in the ICU. The patient this time is able to lie down flat. The patient had a 1700 mL of straw-colored fluid aspirated from the right thorax. Known patient with nonischemic cardiomyopathy. Left ventricular ejection fraction is 20% to 25% and there is also LV slightly enlarged. The patient also has history of previous DVTs. At this time, his anticoagulants stopped this morning because for thoracenteses. I am going to continue to stop. Tomorrow, I am putting a pacemaker. After the pacemaker, we will restart the anticoagulants may be in 48 hours later, he is getting enough pacemaker and AICD tomorrow because of a nonischemic dilated cardiomyopathy. The patient at this time quite understands that he needs to be taking the medication regularly. If he does not take, then recurrent heart failure may ensue and he may be coming to the hospital recurrently, this time probably we had to put him to a [place] [facility]. I will send the home health care. He is agreeable to have the AICD put in tomorrow, which I am going to do tomorrow and I will keep him n.p.o. now. The patient is not on anticoagulants; however, I am going to PT, PTT, INR, electrolytes, and CBC. Also the patient this time stable. Condition, I explained to him in detail. The risks and complications of the procedures for the AICD replacement, which I am going to do tomorrow. MD ALBERTO Valdez/MIKE /[id number]
[2018-12-15] MEDS ORDERED: SODIUM CHLORIDE 0.9% 50ML 50 ML ONE (23:57)
[2018-12-15] MEDS ORDERED: IOPAMIDOL 370 MG/ML 200 ML INFUS..BTL INJ ONE (23:57)
[2018-12-16] VITALS (24 sets, daily range): BP systolic 98–141; BP diastolic 59–111
--- NOTE | 2018-12-16 01:07 | Diagnostic Imaging Report ---
EXAMINATION: CT of the chest with contrast, PE protocol. TECHNIQUE: Spiral CT images of the chest were performed from the lung apices through the level of the adrenal glands after the IV administration of 100 cc of Isovue 370. Thin section reconstructions were obtained with special concentration on the pulmonary arteries. Coronal and sagittal reformatted images were performed. COMPARISON: Portable chest 12/15/2018 CLINICAL HISTORY:Shortness of breath, chest pain, pleural effusion, atrial fibrillation DISCUSSION: Exam is limited for evaluation of segmental and subsegmental branches particularly in bilateral lower lobes due to presence of pleural effusions Lungs: There is an intraluminal filling defect in the right interlobar pulmonary artery (series 2, image 69, coronal image 61 and sagittal image 42) and extending to the right lower lobe pulmonary artery. No filling defects are noted in the main, right or left pulmonary arteries or central aspect of first order branches. Unable to fully assess segmental and subsegmental branches due to pleural effusions. Marked compressive atelectasis of the left lower lobe. Mild to moderate compressive atelectasis of the right lower lobe. Patchy somewhat wedge-shaped pleural opacities in the lateral right upper lobe (series 3, image 64), anterior and lateral right middle lobe (series 3, images 67 and 89). Bilateral upper lobe intralobular septal thickening. Airways: <The major airways are clear, without endobronchial lesions..> Pleura: Moderate left and [id number] right pleural effusions. No pneumothorax. Heart and mediastinum: Moderate to marked cardiomegaly, with biatrial enlargement. Trace pericardial effusion. The aorta is nonaneurysmal. Main pulmonary artery is borderline to mildly enlarged, measuring 3.1 cm. Decreased and irregular opacification of the right subclavian vein, with presence of multiple right chest collateral vessels (series 2, images 20 and 21 and coronal images 47 and 48). Lymph nodes: Mildly enlarged right lower paratracheal lymph node which measures 1.2 cm in short axis (series 2, image 43) and right upper paratracheal lymph node which measures 1.1 cm in short axis (series 2, image 30). No other enlarged lymph nodes. Abdomen: The visualized portions of the spleen, pancreas, left kidney and adrenal glands are unremarkable. 6 mm hypodense lesion in hepatic segment VII/VIII (series 2, image 126), is to small to characterize but likely represents a small cyst. Reflux of contrast into the IVC and hepatic veins. Bones and soft tissues: No aggressive lytic lesions. Degenerative disc changes in the thoracic spine. IMPRESSION: 1. Pulmonary embolus in the right interlobar pulmonary artery extending to the right lower lobe pulmonary artery. No filling defects are noted in the main, right or left pulmonary arteries or central aspect of the first order branches. Evaluation of segmental and subsegmental branches is markedly limited due to presence of pleural effusions and atelectatic changes. 2. Moderate left and small to moderate right pleural effusions with marked compressive atelectasis of the left lower lobe and mild to moderate compressive atelectasis of the right lower lobe. 3.Subpleural opacities in the lateral right upper lobe and anterolateral right middle lobe likely represent focal areas of atelectasis. 4. Bilateral upper lobes intralobular septal thickening likely due to interstitial edema/fluid overload. 5. Mildly enlarged right lower and right upper paratracheal lymph nodes, likely reactive. No other adenopathy. 6. Moderate to marked cardiomegaly with biatrial enlargement. Mildly enlarged main pulmonary artery suggesting pulmonary hypertension. Reflux of contrast into the IVC and hepatic veins consistent with right ventricular dysfunction. 7. Decreased and irregular opacification of the right subclavian vein with presence of multiple right chest collateral vessels. This may reflect presence of thrombi, particularly if there is a history of prior central line. 8. Findings discussed with the patient's nurse, Ankita Smith October 16, 2018 at 0054 hours. Signed by: Dr. Eriberto Yin M.D. on 12/16/2018 1:04 AM
--- NOTE | 2018-12-16 01:15 | NUR ---
Paged and spoke with Dr Mathew regarding the CTA results. Gave the phone number to the radiologist for the physicians to discuss. Order received for lovenox and cancel AICD placement for today.
[2018-12-16] MEDS: ENOXAPARIN SODIUM INJ 100 MG/ML SYR SC SCH ×2 (01:52→13:15)
[2018-12-16] MEDS: LEVALBUTEROL HCL SOLN NEBU 1.25 MG/3 ML NEB INH PRN (02:28)
[2018-12-16 05:08] LABS: BASOPHILS # (AUTO) 0.1 (0.0-0.1); BASOPHILS % 0.9 % (0.0-1.0); EOSINOPHILS # (AUTO) 0.7 (0.0-0.4); EOSINOPHILS % 6.8 % (0.0-6.0); HEMATOCRIT 37.3 % (38.2-49.6); HEMOGLOBIN 12.5 g/dL (14.0-18.0); LYMPHOCYTES # (AUTO) 1.4 (1.0-3.2); LYMPHOCYTES % 13.5 % (18.0-39.1); MEAN CORPUSCULAR HEMOGLOBIN 30.9 pg (28-32); MEAN CORPUSCULAR HGB CONC 33.5 g/dL (31-35); MONOCYTES % 9.4 % (4.4-11.3); NEUTROPHILS # (AUTO) 7.3 (2.1-6.9); NEUTROPHILS % 68.7 % (38.7-80.0); PLATELET COUNT 282 x10e3/uL (140-360); RED BLOOD COUNT 4.05 x10e6/uL (4.3-5.7); RED CELL DISTRIBUTION WIDTH 17.8 % (11.7-14.4)
[2018-12-16 05:09] LABS: MEAN CORPUSCULAR VOLUME 92.1 fL (81-99)
[2018-12-16 05:23] LABS: INR 1.58; PROTHROMBIN TIME 19.5 seconds (11.9-14.5)
[2018-12-16 05:24] LABS: PARTIAL THROMBOPLASTIN TIME 49.6 seconds (23.8-35.5)
[2018-12-16 05:32] LABS: ANION GAP 14.6 mmol/L (8-16); BLOOD UREA NITROGEN 19 mg/dL (7-26); BUN/CREATININE RATIO 18 (6-25); CALCIUM 8.8 mg/dL (8.4-10.2); CARBON DIOXIDE 22 mmol/L (22-29); CHLORIDE 93 mmol/L (98-107); CREATININE, SERUM 1.04 mg/dL (0.72-1.25); EST GLOMERULAR FILTRATION RATE > 60 ML/MIN (60-); GLUCOSE 110 mg/dL (74-118); POTASSIUM 4.6 mmol/L (3.5-5.1); SODIUM 125 mmol/L (136-145)
[2018-12-16] MEDS: ONDANSETRON HCL INJ 2MG/ML 2ML 2 MG/ML VIAL IV PRN (06:45)
--- NOTE | 2018-12-16 07:20 | NUR ---
Called and spoke with Dr Ariza regarding the CTA results.
[2018-12-16] MEDS: CARVEDILOL 3.125 MG TAB PO SCH (08:00)
--- NOTE | 2018-12-16 08:30 | NUR ---
DR. Dalia CASTILLO HERE TO SEE PATIENT
[2018-12-16] MEDS: LISINOPRIL 10 MG TAB PO SCH (08:48)
[2018-12-16] MEDS: FUROSEMIDE INJ 10 MG/ML 2 ML VIAL IV SCH ×2 (09:01→17:39)
[2018-12-16] MEDS: SPIRONOLACTONE 25 MG TAB PO SCH (09:01)
[2018-12-16] MEDS: POTASSIUM CHLORIDE 20 MEQ TAB CR PO SCH (09:02)
--- NOTE | 2018-12-16 10:20 | NUR ---
DR. CASTILLO CALLED AND I SPOKE TO HIM REGARDING PATIENT HAVING POSITIVE HEPATITIS A RESULTS.
--- NOTE | 2018-12-16 10:27 | NUR ---
DR. SAENZ''S OFFICE CALLED AND I LEFT VOICE MESSAGE WITH [place] REGARDING PATIENT HAVING POSITIVE HEPATITIS A RESULTS.
--- NOTE | 2018-12-16 10:37 | NUR ---
INFECTION DISEASE NURSE ([facility]) CALLED AND LEFT MESSAGE ON HER VOICE MAIL REGARDING POSITIVE HEPATITIS A RESULT.
--- NOTE | 2018-12-16 11:00 | NUR ---
PATIENT PLACED ON ENTERIC ISOLATION PRECAUTIONS
--- NOTE | 2018-12-16 11:47 | Progress Note ---
DATE: 12/16/2018 SUBJECTIVE: The patient had a thoracentesis yesterday. He had some pain post procedure. His chest x-ray showed no pneumo. He had a subsequent CT scan with a PE protocol that showed a small interlobular pulmonary embolism in the right lower lobe. The pain has resolved this morning, although he still has some dyspnea with exertion. PHYSICAL EXAMINATION: VITAL SIGNS: The blood pressure is 120/90 and the pulse is 90 to 100. Saturation is 100% on 5 L. HEENT: Shows no facial swelling or erythema. The nasal mucosa is normal. The oropharynx is normal. LYMPHATIC: Shows no submandibular, cervical, or supraclavicular adenopathy. CARDIAC: Reveals a regular rate and rhythm with a normal S1 and S2. There are no murmurs or rubs. LUNGS: Auscultation of lungs reveals rhonchorous breath sounds bilaterally. There is no wheezing. ABDOMEN: Soft, nontender. There is no rebound or guarding. EXTREMITIES: Show trace leg edema. LABORATORY DATA: The white blood cell count is normal and the hemoglobin is normal. The platelet count is 282. The sodium is 125 and the BUN to creatinine ratio is 19 to 1.04. RADIOGRAPHIC DATA: Chest CT shows a pulmonary embolism in the right interlobular pulmonary artery extending to the right lower lobe pulmonary artery. No filling defects are noted in the main, right or left pulmonary arteries or any of the first-order branches. There are bilateral pleural effusions, left greater than right with some compressive atelectasis. There is mild cardiomegaly. IMPRESSION: 1. Acute on chronic systolic congestive heart failure. 2. Atrial fibrillation. 3. Pulmonary embolism. 4. Congestive liver disease. 5. Bipolar illness. PLAN: 1. Continue anticoagulation. 2. Continue current regimen for atrial fibrillation. 3. Fluid restriction. 4. Discussed pacemaker and AICD with Dr. Mathew. Alfie Ariza MD [facility]/MODL /[id number]
--- NOTE | 2018-12-16 11:48 | NUR ---
DR. QUARLES'S OFFICE CALLED REGARDING PATIENT HAVING DELUSIONAL EPISODE LAST NIGHT AND REVIEW OF PSYCHE MEDICATIONS AND I SPOKE TO JONO. SHE SAID SHE WILL RELAY MESSAGE TO DR. QUARLES TO RETURN MY CALL.
[2018-12-16] MEDS: RISPERIDONE 0.5 MG TAB PO PRN (12:49)
--- NOTE | 2018-12-16 14:32 | NUR ---
WENT TO SEE PT, GAVE ANOTHER RENT LIST IN [place] EDUCATED THAT HE NEEDS TO GO TO FACILITIES AND APPLY TO EACH ONE THEY ARE INDEPENDENT OF EACH OTHER. GAVE RESOURCES FOR COMMUNITY FOR ASSISTANCE IN MANY AREAS FOR HIM TO FOLLOW UP, ASKED IF HE WAS ABLE TO GO CHECK INTO THE RESOURCES LAST TIME HE WAS HERE, HE STATED NO THAT HE DIDN'T, BUT DIDN'T KNOW WHAT HE HAD DONE WITH "ALL THEM PAPERS". HE STATES WELL I AM NOT SURE IF I WILL BE ABLE TO GO NEXT TIME, LET HIM KNOW RESOURCES WERE IN FOLDER FOR WHEN HE IS READY.
[2018-12-16] MEDS ORDERED: HALOPERIDOL LACTATE 5 MG/ML VIAL IM PRN (17:30)
[2018-12-16] MEDS: DIGOXIN 0.25 MG TAB PO SCH (17:40)
[2018-12-16] MEDS: AMIODARONE HCL 200 MG TAB PO SCH (17:40)
--- NOTE | 2018-12-16 19:30 | NUR ---
Dr. Wilson called and I spoke to Jocelyn regarding Bilateral Upper and Lower Venous Doppler Results and awaiting call back.
--- NOTE | 2018-12-16 19:38 | NUR ---
Dr. Ariza called and no answer, but left voice mail to his listed phone number regarding Bilateral Upper and Lower Venous Doppler Results and awaiting call back.
--- NOTE | 2018-12-16 21:40 | Progress Note ---
DATE: 12/16/2018 SUBJECTIVE: The patient is evaluated and events noted. The patient is in the room. He is alert, awake, and oriented to situation. He is still reporting auditory hallucination. He is paranoid, believes that the bill collectors are out to get him. He denies any suicidal or homicidal ideation. He denies any problem with sleep or appetite. He denies any depression. He denies any side effects from medication. The patient had episode of agitation today. He was yelling and screaming. The patient is currently on isolation. Multiple medical issues ongoing as per the nurse. He is still in AFib. Ejection fraction is less than 15%. He is currently having blood clot. Given his medical issues, we will start on a very small dose of Risperdal for now. As per nursing staff, the patient has been in the hospital before. He left AMA with the last admission because he wanted to drink alcohol. The patient is currently homeless. He had refused a supervised setting. He appears to be making poor choices. ASSESSMENT: 1. Bipolar 1 disorder, recurrent, mixed, moderate with psychosis. 2. Alcohol abuse. PLAN: 1. Add Risperdal 0.25 mg p.o. at bedtime. 2. Continue Risperdal p.r.n. 3. Discontinue Ambien p.r.n. 4. Add Haldol 1 mg IM q.6 hours as needed for severe agitation. 5. Monitor for mood and psychosis. 6. Start . 7. Supportive therapy. Dictated by Guerda Henriquez PA-C Kirsten Santillan MD [facility]/MODL /[id number]
[2018-12-16] MEDS: RISPERIDONE 0.5 MG TAB PO SCH (22:01)
[2018-12-17] VITALS (21 sets, daily range): BP systolic 90–150; BP diastolic 66–127
[2018-12-17] MEDS: ENOXAPARIN SODIUM INJ 100 MG/ML SYR SC SCH ×2 (02:11→15:24)
[2018-12-17 05:01] LABS: BASOPHILS # (AUTO) 0.1 (0.0-0.1); BASOPHILS % 0.8 % (0.0-1.0); EOSINOPHILS # (AUTO) 0.8 (0.0-0.4); EOSINOPHILS % 8.1 % (0.0-6.0); HEMATOCRIT 34.7 % (38.2-49.6); HEMOGLOBIN 12.1 g/dL (14.0-18.0); LYMPHOCYTES # (AUTO) 1.4 (1.0-3.2); LYMPHOCYTES % 14.2 % (18.0-39.1); MEAN CORPUSCULAR HEMOGLOBIN 31.1 pg (28-32); MEAN CORPUSCULAR HGB CONC 34.9 g/dL (31-35); MEAN CORPUSCULAR VOLUME 89.2 fL (81-99); MONOCYTES % 10.8 % (4.4-11.3); NEUTROPHILS # (AUTO) 6.3 (2.1-6.9); NEUTROPHILS % 65.8 % (38.7-80.0); PLATELET COUNT 244 x10e3/uL (140-360); RED BLOOD COUNT 3.89 x10e6/uL (4.3-5.7); RED CELL DISTRIBUTION WIDTH 18.2 % (11.7-14.4)
[2018-12-17 05:29] LABS: ALANINE AMINOTRANSFERASE 564 IU/L (0-55); ALBUMIN 2.2 g/dL (3.5-5.0); ALBUMIN/GLOBULIN RATIO 0.6 (0.8-2.0); ALKALINE PHOSPHATASE 108 IU/L (40-150); ANION GAP 11.3 mmol/L (8-16); BLOOD UREA NITROGEN 13 mg/dL (7-26); BUN/CREATININE RATIO 17 (6-25); CALCIUM 8.5 mg/dL (8.4-10.2); CARBON DIOXIDE 26 mmol/L (22-29); CHLORIDE 100 mmol/L (98-107); CREATININE, SERUM 0.78 mg/dL (0.72-1.25); EST GLOMERULAR FILTRATION RATE > 60 ML/MIN (60-); GLUCOSE 78 mg/dL (74-118); POTASSIUM 4.3 mmol/L (3.5-5.1); SODIUM 133 mmol/L (136-145)
--- NOTE | 2018-12-17 06:45 | NUR ---
Bedside report from COLTEN Blair.
--- NOTE | 2018-12-17 08:38 | NUR ---
MAT team called and information provided per order from Guerda Henriquez on 12/16/18. Per Pennie at [phone], MAT [employer] team member will be dispatched to bedside.
--- NOTE | 2018-12-17 09:58 | NUR ---
SPOKE WITH Jennifer WADDELL ABOUT PT DEMEANOR, HE IS NOT AGITATED, SHE SPOKE WITH MYSELF AND THE NURSE ABOUT THE KEARA, SHE WANTS THAT ORDER CANCELLED AND WILL HAVE DR STEIN COME BACK AND DETERMINE IF PT IS COMPETENT TO MAKE DECISIONS AND IF THERE NEEDS TO BE AN EMERGENCY MEDI PSYCH PLACEMENT.
[2018-12-17] MEDS: AMIODARONE HCL 200 MG TAB PO SCH ×2 (10:00→17:49)
[2018-12-17] MEDS: SPIRONOLACTONE 25 MG TAB PO SCH (10:00)
[2018-12-17] MEDS: FUROSEMIDE INJ 10 MG/ML 2 ML VIAL IV SCH ×2 (10:00→17:49)
[2018-12-17] MEDS: POTASSIUM CHLORIDE 20 MEQ TAB CR PO SCH (10:07)
--- NOTE | 2018-12-17 13:40 | NUR ---
Dr Chris Ariza spoke with Dr Presley and made him aware of consult. Order placed per Dr Chris Ariza request.
--- NOTE | 2018-12-17 17:04 | Progress Note ---
DATE: SUBJECTIVE: The patient does not have dyspnea. His chest pain has improved. PHYSICAL EXAMINATION: VITAL SIGNS: Stable. HEENT: Shows no facial swelling or erythema. The oropharynx is normal. LYMPHATIC: Shows no submandibular, cervical, or supraclavicular adenopathy. CARDIAC: Reveals regular rate and rhythm with normal S1 and S2. LUNGS: Auscultation of lungs shows clear breath sounds bilaterally. There is no wheezing. ABDOMEN: Soft, nontender. There is no rebound or guarding. EXTREMITIES: Show no leg edema or calf tenderness. IMPRESSION: 1. Multiple venous thrombi with possible coagulopathy. 2. Acute hepatitis A. 3. Acute on chronic systolic congestive heart failure. 4. Atrial fibrillation. 5. Bipolar illness. PLAN: 1. Await hematology consultation. 2. Continue Lovenox. 3. Continue amiodarone and treatment for atrial fibrillation. 4. Monitor liver function tests. 5. Transfer out of intensive care unit to general medical [facility]. Alfie Ariza MD [facility]/MODL /[id number]
[2018-12-17] MEDS: DIGOXIN 0.25 MG TAB PO SCH (17:49)
--- NOTE | 2018-12-17 18:25 | Progress Note ---
DATE: 12/17/2018 Cardiology Progress Note SUBJECTIVE: The patient is seen in the room and discussed with nurse and Dr. Alfie Ariza. DIAGNOSES: 1. Acute on chronic congestive heart failure. 2. Nonischemic cardiomyopathy. 3. Normal coronary exam done during last admission in the last four weeks. 4. The patient has acute DVT in the right leg and also right subclavian vein and right cephalic vein thrombosis noted and also left subclavian has partially thrombus. The patient has pulmonary embolus is right lung. The patient also has history of possible DVT in the past, however, this appears to be new and the patient also came back, showed congestive heart failure, his ejection fraction of 20% to 25%. The patient needs an AICD installed before leaving, however, I could not do this procedure because of clotted both subclavian veins and also we had to sort out the etiology of his thrombus in the veins and also in the lungs, so Hematology consult is going to be done today and Dr. Alfie Ariza has already called house mother for consultation for these DVTs and also PE. The patient comes here third time, admitted to the hospital. The patient was admitted in different hospital in the last three months. The patient is chronically sick, but only the problem we are facing is he does not take the medications regularly and also patient does not have a room to stay. I believe the patient usually stayed in a car or a truck, however the problem at this time he will not take the medicines properly and we will make a decision after Hematology consultation and however, we will have to wait putting AICD at least about 4 to 6 weeks and all the slots completely gone. I will continue to follow the patient along with Dr. Alfie Ariza. MD ALBERTO Valdez/MIKE /[id number]
--- NOTE | 2018-12-17 19:00 | NUR ---
Bedside report received from Claire Carlin RN. Pt AAOx3 and reports no pain or discomfort at this time, no signs of distress noted at this time. Pt at the bedside, care plan reviewed. Addendum: 12/17/18 at 1915 by Eboni Small RN Correction of data: disregard documented on incorrect chart.
--- NOTE | 2018-12-17 19:00 | NUR ---
Bedside report received from Claire Carlin RN. Pt received resting in bed with eyes open following commands, pt reports no pain or discomfort at this time, no signs of distress noted at this time. No family at the bedside. Care plan reviewed.
--- NOTE | 2018-12-17 19:05 | NUR ---
present and assessing the pt. No new orders received. mentioned switching the pt to PO anti-coagulants at discharge. Reviewed Med-surg with tele order, current diuretic medication orders, and current lovenox orders.
--- NOTE | 2018-12-17 19:45 | NUR ---
just called and ordered CT abd with contrast and multiple labs. (Please refer to EMR border guard for further details. Orders read back to .
[2018-12-17] MEDS: RISPERIDONE 0.5 MG TAB PO SCH (20:33)
[2018-12-17] MEDS: ACETAMINOPHEN 325 MG TAB PO PRN (20:34)
[2018-12-17] MEDS ORDERED: IOPAMIDOL 370 MG/ML 200 ML INFUS..BTL INJ ONE (21:57)
[2018-12-17] MEDS ORDERED: SODIUM CHLORIDE 0.9% 50ML 50 ML ONE (21:57)
--- NOTE | 2018-12-17 22:05 | NUR ---
Pt taken by wheelchair by forestry technician for CT of abdomen.
--- NOTE | 2018-12-17 22:30 | NUR ---
Pt returned to room from CT via wheelchair and by audio/video technician. No signs of distress noted. Pt reports no pain or discomfort.
--- NOTE | 2018-12-17 22:46 | Diagnostic Imaging Report ---
EXAMINATION: CT of the abdomen with contrast. TECHNIQUE: Spiral CT images of the abdomen were performed from the lung bases to the iliac crests after the intravenous administration of 100 cc of Isovue 370 and the oral administration of water. Coronal and sagittal reformatted images were obtained. COMPARISON: CT chest 12/16/2018. Abdominal ultrasound 12/15/2018 CLINICAL HISTORY:History of hepatitis A, liver disease and alcohol abuse, atrial fibrillation DISCUSSION: LOWER THORAX:Interval increase in size of previously visualized right pleural effusion which is now moderate and left pleural effusion which is now large, with associated compressive atelectasis of the right lower lobe, left lower lobe and portions of the lingula. Stable cardiomegaly with biatrial enlargement. HEPATOBILIARY: Liver is normal in size, measuring 14.4 cm in the right midclavicular line. Hepatic contour is unremarkable. Stable ill-defined 6 mm hypodense lesion in hepatic segment VII/VIII, which is too small to characterize. No other focal hepatic lesions. Reflux of contrast into the IVC and hepatic veins is again noted. No intra or extrahepatic biliary ductal dilation. GALLBLADDER: Gallbladder is contracted, however, no radiopaque stones or sludge are identified. SPLEEN: No splenomegaly. Wedge-shaped peripherally located hypodensity in the posteriors superior to mid spleen (series 2, image 24 and coronal image 74), may represent a small infarct. PANCREAS: No focal masses or ductal dilatation. ADRENALS: No adrenal nodules. KIDNEYS/URETERS: No hydronephrosis, stones, or solid mass lesions. PERITONEUM/RETROPERITONEUM: No free air or fluid. LYMPH NODES: No intra-abdominal or retroperitoneal adenopathy. VESSELS: The celiac trunk,superior and inferior mesenteric and bilateral renal arteries are patent The portal, superior mesenteric and splenic veins are patent. GI TRACT: Visualized bowel shows no dilation or obstruction. BONES AND SOFT TISSUE: No aggressive lytic lesions. Mild degenerative disc changes in the lumbar spine. Facet hypertrophy L5-S1, worse on the left side. Mild soft tissue edema. IMPRESSION: 1. Interval increase in size of previously visualized right pleural effusion, which is now moderate, and left pleural effusion which is now large on the with associated worsening of bilateral lower lobe compressive atelectasis. 2. Liver size and contour normal, without CT evidence of cirrhosis. Stable ill-defined 6 mm hypodense lesion in segment VII/VIII which is too small to characterize. 3. Reflux of contrast into the IVC and hepatic veins consistent with right ventricular dysfunction. 4. Finding in the spleen likely represents a small peripheral infarct. Signed by: Dr. Eriberto Yin M.D. on 12/17/2018 10:42 PM
--- NOTE | 2018-12-17 23:31 | Progress Note ---
DATE: 12/17/2018 Psychiatric Progress SUBJECTIVE: The patient is in the ICU. He is alert, awake, and oriented to situation. The patient is not confused. He denies any depression. Denies any anxiety. He reports auditory hallucination. He denies any suicidal ideation or homicidal ideation. The patient is aware that he has heart issues and clots. He understands that he needs to be in the hospital to get better. The patient states he is willing to stay to receive medical treatment and he claims that he lives in his truck. He claims that if he has any medical problems, he will call 911 for help. He appears to have good insight and judgment into his medical illness. He is not agitated at this time. He appears to have plan for safe discharge at this time. ASSESSMENT: 1. Bipolar 1 disorder, recurrent, mixed, moderate with psychosis. 2. Alcohol abuse. PLAN: 1. Increase Risperdal to 0.5 mg p.o. at bedtime. 2. Continue Risperdal p.r.n. 3. Continue Haldol 1 mg IM q.6 hours p.r.n. for severe agitation. 4. Monitor for mood. 5. Based on this clinical assessment, the patient does have capacity to make a decision regarding his discharge planning at this time. Dictated by Guerda Henriquez PA-C Kirsten Santillan MD [facility]/MODL /[id number]
[2018-12-18] VITALS (8 sets, daily range): BP systolic 101–126; BP diastolic 82–98
--- NOTE | 2018-12-18 00:30 | NUR ---
Pt began yelling out at auditory hallucinations talking to him. Pt was otherwise AAOx3 and following commands. Episode resolved by 44.
[2018-12-18] MEDS: ENOXAPARIN SODIUM INJ 100 MG/ML SYR SC SCH ×3 (01:15→17:58)
--- NOTE | 2018-12-18 02:46 | Consultation ---
DATE OF CONSULTATION: 12/16/2018 CONSULTING PHYSICIAN: Fidel Presley MD, Hematology-Oncology Service. REASON FOR CONSULTATION: Evaluation and management of patient with deep vein thrombosis and pulmonary embolism. HISTORY OF PRESENTING ILLNESS: Mr. Greenwood is a very pleasant 48-year-old gentleman originally from [place], [place] with known history of systolic cardiomyopathy, atrial fibrillation, and history of pulmonary embolism, admitted from emergency department due to progressive shortness of breath. He was seen and evaluated by Cardiology and felt to be in acute on chronic congestive heart failure due to nonischemic cardiomyopathy with ejection fraction of 20%. Due to shortness of breath, he underwent CT scan of the chest revealing pulmonary embolus in the right interlobar pulmonary artery extending into the right lower lobe pulmonary artery without any filling defect. The patient also had a Doppler of lower extremity revealing acute partially occlusive deep vein thrombosis in the mid segment of the right femoral, popliteal, and common femoral vein. The patient was started on anticoagulation with Lovenox. He was also discharged on digoxin along with diuresis due to congestive heart failure. He has been planning to have AICD placement due to severe nonischemic cardiomyopathy with low ejection fraction. Now, Hematology-Oncology has been consulted to assist with the management. Presently, the patient is lying comfortably, not in acute distress. He is still having difficulty breathing, though it has been significantly improved. He is in ICU, however, going to move to the medical floor. He denies any history of thrombophilia or family history of thromboembolic disease. PAST MEDICAL HISTORY: 1. Atrial fibrillation. 2. Nonischemic cardiomyopathy with normal coronaries. PAST SURGICAL HISTORY: Coronary angiogram. SOCIAL HISTORY: The patient is originally from [place], [place] and presently residing in his [facility] and on disability. He has a history of drinking. Denies illicit drug use and current history of smoking. FAMILY HISTORY: Negative for thrombophilias are hematologic disorder. ALLERGIES: NO KNOWN DRUG ALLERGIES. CURRENT MEDICATIONS: Reviewed as per current medical record. REVIEW OF SYSTEMS: 14-point review of systems negative except as mentioned per history of presenting illness. PHYSICAL EXAMINATION: VITAL SIGNS: Reviewed as per electronic medical record. HEENT: PERRLA. Extraocular movements are intact. Head is atraumatic and normocephalic. NECK: Supple. CVS: S1 and S2 audible. RESPIRATORY: Decreased bilateral air entry. ABDOMEN: Soft, positive bowel sounds. EXTREMITIES: Trace edema. NEURO: The patient is alert and awake. LABORATORY DATA: Reviewed as per electronic medical record. ASSESSMENT AND PLAN: Mr. Greenwood is a very pleasant 48-year-old young gentleman with known history of nonischemic cardiomyopathy and atrial fibrillation, presented to the emergency department due to progressive shortness of breath. He underwent CT angiogram revealing pulmonary embolism and Doppler of lower extremity also revealed extensive deep vein thrombosis in the right leg. The patient has been started on anticoagulation with Lovenox. He also has been treated with diuretics for CHF as well as the presently on digoxin. Now, Hematology-Oncology has been consulted to assist with management. I have reviewed the records and discussed at length with the patient about his current disease and importance of anticoagulation. He is on appropriate dose of anticoagulation with Lovenox. RECOMMENDATIONS: Continue Lovenox for now as he has extensive clot burden. Cause of thromboembolic event is uncertain, possible inherited thrombophilia versus underlying malignancy, though recent CT chest as well as ultrasound of the abdomen did not show any obvious mass lesion to consider that. From a hematological standpoint, continue with anticoagulation with Lovenox. At the time of discharge, we will consider switching to oral anticoagulants. The patient is seen and evaluated by Cardiology and presently in the process of AICD placement. I would suggest if he need the ICD, should proceed forward now before I switch him to oral anticoagulation. I will also get a CT abdomen to rule out any malignancy or mass lesion which is causing this thrombogenic phenomenon. However, this very well could be a thrombophilia and [facility] thrombophilia panel will be requested. Thank you for the consult. I will continue to be available. Please call with questions. Critical care time spent more than 35 minutes. MD TARI Adan/MODL /[id number]
--- NOTE | 2018-12-18 07:00 | NUR ---
Bedside report given to Claire Carlin RN. Pt reports no pain or discomfort, no signs of distress at this time. No family at the bedside, care plan reviewed.
[2018-12-18] MEDS: POTASSIUM CHLORIDE 20 MEQ TAB CR PO SCH (09:19)
[2018-12-18] MEDS: RISPERIDONE 0.5 MG TAB PO PRN (09:28)
--- NOTE | 2018-12-18 10:57 | NUR ---
Follow-up Note RD Recommendation for Physician: Continue diet as ordered Plan of Care: RD following, monitoring for adequacy and tolerance Nutrition reason for involvement: Follow up Primary Diagnose(s): atrial fibrillation with RVR , chest pain Ht:67 in Wt:203lbs BMI:31.8 kg/m2 IBW:148lbs RD Assessment: (12/18/2018) Visited pt in the room. Pt reported improvement with his appetite. RN recorded 75-100% meal intake. Pt denied any nausea or vomiting. LBM - 12/17. No complains of chewing or swallowing difficulty. Current diet is appropriate and adequate. Will continue to monitor and follow. (12/13/2018) Initial encounter with patient. Pt with a decreased appetite/Po intake at this time. No N,V,D. No difficulty chewing or swallowing Current Diet: Cardiac diet Malnutrition Evaluation 12/13/2018 The patient does not meet criteria for a specified degree of malnutrition at this time. Will re-evaluate at follow-up as appropriate. Diet Education Needs Assessment: Diet education not indicated. Diet Adequacy: Meeting calorie needs, Meeting protein needs, Meeting fluid needs Tolerance: Tolerating PO Nutrition Care Level: Low Annie Nielsen, MS, RD, LD
[2018-12-18] MEDS: FUROSEMIDE INJ 10 MG/ML 2 ML VIAL IV SCH ×2 (12:06→17:58)
[2018-12-18] MEDS: AMIODARONE HCL 200 MG TAB PO SCH ×2 (12:06→17:58)
[2018-12-18] MEDS: SPIRONOLACTONE 25 MG TAB PO SCH (12:06)
--- NOTE | 2018-12-18 13:18 | Progress Note ---
DATE: Pulmonary Critical Care Progress Note SUBJECTIVE: The patient notes pain and swelling in the right arm that has worsened yesterday. He does not complain of dyspnea or chest pain. PHYSICAL EXAMINATION: VITAL SIGNS: The patient is afebrile. Blood pressure is 118/88. HEENT: Shows no facial swelling or erythema. CARDIAC: Reveals regular rate and rhythm with normal S1 and S2. LUNGS: Auscultation of lungs shows clear breath sounds bilaterally. EXTREMITIES: There is swelling and tenderness of the right arm. IMPRESSION: 1. Acute on chronic systolic congestive heart failure. 2. Multiple venous thrombi with possible coagulopathy. 3. Acute hepatitis A. 4. Atrial fibrillation. 5. Bipolar illness. PLAN: 1. Obtain thrombophilia screen. 2. Factor Xa level to see if a dose of Lovenox should be increased. 3. Continue current treatment for atrial fibrillation. 4. Continue diuresis. 5. Monitor blood counts and electrolytes. MD LEONIDAS Rudolph/MIKE /[id number]
[2018-12-18] MEDS: DIGOXIN 0.125 MG TAB PO SCH (17:58)
--- NOTE | 2018-12-18 18:30 | NUR ---
Dr Presley to bedside.
--- NOTE | 2018-12-18 19:00 | NUR ---
Bedside report received from Claire Carlin RN. Pt received resting in bed with eyes open, AAOx3 and following commands, pt reports no pain or discomfort at this time, no signs of distress noted. No family at the bedside, care plan reviewed.
--- NOTE | 2018-12-18 19:00 | Progress Note ---
DATE: 12/18/2018 Psychiatric Progress Note SUBJECTIVE: The patient is in the ICU. He is alert, awake, and oriented to situation. He is calm and cooperative at this time. He denies depression or anxiety. He denies any suicidal or homicidal ideation. He is still somewhat paranoid and believes debt collectors are after him. He reports auditory hallucination, but states that the intensity and frequency have improved since he is on the medication. He claims that he is sleeping and eating well. He denies any side effects from medication. The patient continued to verbalize that he wants medical help and he is in agreement with the treatment that he is getting. Discussed with nursing staff regarding his medications and his intermittent agitation. Nursing staff reports that the patient has been anxious, but not combative or agitated. Nurse case management indicates that he is intermittently yelling out and having hallucinations. ASSESSMENT: 1. Bipolar 1 disorder, recurrent, mixed, moderate with psychosis. 2. Alcohol abuse. PLAN: 1. Plan is to recommend total abstinence from alcohol. 2. Increase Risperdal from 0.5 mg p.o. at bedtime to 0.5 mg p.o. at bedtime and 0.25 mg p.o. day. 3. Continue Ambien p.o. 4. Continue Haldol p.r.n. IM. 5. Monitor the mood and psychosis. Based on Dr. Santillan's assessment, the patient does have capacity to make decision regarding his treatment and discharge planning at this time. Dictated by Guerda Henriquez PA-C Kirsten Santillan MD [facility]/MODL /[id number]
--- NOTE | 2018-12-18 19:35 | NUR ---
Dr. Mathew rounding at this time and reviewed the pts chart. No new orders received.
[2018-12-18] MEDS: HYDROCODONE/APAP 7.5MG-325MG 1 EA TAB PO PRN (21:13)
[2018-12-18] MEDS: RISPERIDONE 0.5 MG TAB PO SCH (21:13)
--- NOTE | 2018-12-18 23:01 | Progress Note ---
DATE: 12/18/2018 Cardiology Progress Note SUBJECTIVE: The patient is seen in the room. Clinically, the patient is stable, is sleeping well. heart rate of 100 per minute, blood pressure 100/70. The patient with anti-congestive heart failure treatment and also Lovenox. DIAGNOSES: 1. Sushw-[id number] nonischemic cardiomyopathy. 2. No coronary artery disease. 3. Class 3 congestive heart failure. 4. Thoracenteses done twice, 1700 mL of fluid. 5. He has deep venous thrombosis in the right leg deep vein and also right subclavian vein. 6. He has partial deep venous thrombosis of the left subclavian vein. 7. Right internal jugular vein also has deep venous thrombosis. 8. The patient has a pulmonary embolus right interlobular lobe. Placed the CTA of the pulmonary artery. 9. Right atrial ablation. 10. Acute hepatitis. 11. Bipolar illness. At this time, the patient though is stable, chronic heart failure is concerned, and also patient is well anticoagulated for anti-coag treatment. Main problem per me is AICD, we had to go through the vein. Is noted to have partial thrombosis of the left subclavian vein and some thrombosis of the subclavian also. So, at this time, we will wait at least four weeks of Lovenox treatment and re-evaluate the patient with duplex scan. Meantime, what can be done is either we can send him home with p.o. anticoagulants if he is eligible, we can send it to another long-term step-down units like [place], where we can monitor anticoagulant treatment. I will discuss with Dr. Alfie Ariza tomorrow about this, at least minimal need to an anticoagulant treatment to see some changes in the clot and at least minimum in the left subclavian vein. If we find there are no clots by venous duplex scan of the left subclavian vein, I will proceed for AICD placement within 2 to 4 weeks. At this time, I am very much concerned of he going home like he has done many times in the past and one time for us in [facility] ER, he was here about four weeks ago. He never took the treatment, came with acute heart failure and recurrent thrombosis of the veins. Meantime, we will continue present medications as ordered. The patient at this time is hemodynamically stable. MD ALBERTO Valdez/MIKE /[id number]
[2018-12-19 05:47] LABS: INR 1.18; PROTHROMBIN TIME 15.6 seconds (11.9-14.5)
[2018-12-19] MEDS: ENOXAPARIN SODIUM INJ 100 MG/ML SYR SC SCH ×2 (05:52→16:58)
[2018-12-19 06:05] LABS: ALANINE AMINOTRANSFERASE 287 IU/L (0-55); ALBUMIN 2.1 g/dL (3.5-5.0); ALBUMIN/GLOBULIN RATIO 0.5 (0.8-2.0); ALKALINE PHOSPHATASE 116 IU/L (40-150); ANION GAP 12.5 mmol/L (8-16); BLOOD UREA NITROGEN 12 mg/dL (7-26); BUN/CREATININE RATIO 16 (6-25); CALCIUM 8.8 mg/dL (8.4-10.2); CARBON DIOXIDE 27 mmol/L (22-29); CHLORIDE 98 mmol/L (98-107); CREATININE, SERUM 0.74 mg/dL (0.72-1.25); EST GLOMERULAR FILTRATION RATE > 60 ML/MIN (60-); GLUCOSE 96 mg/dL (74-118); POTASSIUM 4.5 mmol/L (3.5-5.1); SODIUM 133 mmol/L (136-145)
[2018-12-19 07:00] VITALS: BP 96/63
[2018-12-19] MEDS: FUROSEMIDE INJ 10 MG/ML 2 ML VIAL IV SCH ×2 (08:30→16:58)
[2018-12-19] MEDS: AMIODARONE HCL 200 MG TAB PO SCH ×2 (08:38→16:58)
[2018-12-19] MEDS: POTASSIUM CHLORIDE 20 MEQ TAB CR PO SCH (08:38)
[2018-12-19] MEDS: SPIRONOLACTONE 25 MG TAB PO SCH (08:38)
[2018-12-19] MEDS: RISPERIDONE 0.5 MG TAB PO SCH ×2 (08:38→21:56)
[2018-12-19 10:28] VITALS: BP 96/63
--- NOTE | 2018-12-19 10:29 | Progress Note ---
DATE: 12/16/2018 Cardiology Progress Note SUBJECTIVE: The patient is seen in ICU. The patient is doing well. He is sitting at bedside. The patient does not have any significant right-sided pain and the patient at this time has heart rate of 90 per minute, blood pressure 130/80. We can restart his JEFFERSON and beta-blockers and last night, CTA of the pulmonary artery shows right lower lobe embolus and also left pleural effusion present, right side also present. At this time, I just postponed putting AICD, probably we will try to do it in 2 to 3 days. At this time, restarted Lovenox yesterday itself. He is a known patient with congestive heart failure with left ventricular ejection fraction 35%. Dilated left ventricle. Also, he has atrial fibrillation, but at this time his heart rate is about 80 to 90 per minute. He is on amiodarone and the patient also has bipolar illness. Sometimes he gets confused and also becomes a little quarrelsome. At this time he appears to be stable. I will re-evaluate the patient tomorrow and we will decide when to do the AICD, which he is agreeable to have it done at this time. The patient at this time in stable, good condition. We will keep in ICU. The patient is getting Lovenox. DICTATION ENDS HERE. MD ALBERTO Valdez/MIKE /[id number]
[2018-12-19 11:00] VITALS: BP 106/91
--- NOTE | 2018-12-19 11:54 | NUR ---
PT C/O PAIN ON RT WRIST REDNESS AND SWELLING OVER THERE DUE TO PREVIOUS IV SITE
--- NOTE | 2018-12-19 11:54 | NUR ---
RCD PT FROM ICU BY WHEEL CHAIR PT IS ALERT AND ORIENTED VITALS CHECKED PT RESTING ON BED BED LOW AND LOCKED CALL LIGHT IN REACH
--- NOTE | 2018-12-19 16:25 | Progress Note ---
DATE: 12/19/2018 Psychiatric Progress Note SUBJECTIVE: The patient evaluated and events noted. The patient is in the room. He is alert, awake, and oriented to situation. He is calm and cooperative. He continued to report hallucination, but states that he is getting better. Denies any suicidal ideation. Denies any problem with sleep or appetite. He is not getting p.r.n. medications since yesterday. He denies any side effects from his medications. ASSESSMENT: 1. Bipolar 1 disorder, recurrent, mixed, moderate with psychosis. 2. Alcohol abuse. PLAN: 1. Recommend abstinence from alcohol. 2. Continue Risperdal 0.25 daily and 0.5 at bedtime. 3. Continue with Haldol p.r.n. IM. 4. Monitor for mood. 5. Supportive therapy. Dictated by Guerda Henriquez PA-C Kirsten Santillan MD [facility]/MODL /[id number]
[2018-12-19 16:43] VITALS: BP 138/89
[2018-12-19] MEDS: DIGOXIN 0.125 MG TAB PO SCH (16:58)
--- NOTE | 2018-12-19 18:39 | NUR ---
PT RESTING ON BED BED SIDE REPORT GIVEN TO ONCOMING NURSE
[2018-12-20] VITALS (9 sets, daily range): BP systolic 100–146; BP diastolic 58–94
[2018-12-20] MEDS: ENOXAPARIN SODIUM INJ 100 MG/ML SYR SC SCH ×2 (05:31→17:07)
--- NOTE | 2018-12-20 07:10 | NUR ---
RCD PT AT BED PT IS ALERT AND ORIENTED PT RESTING ON BED NO SIGNS OF ANY DISTRESS NOTED IV PATENT PT C/O PAIN ON THE RT WRIST ON ASSESSMENT REDNESS AND SWELLING DUE TO PREVIOUS IV SITE FROM ICU BED LOW AND LOCKED CALL LIGHT IN REACH
[2018-12-20] MEDS: FUROSEMIDE INJ 10 MG/ML 2 ML VIAL IV SCH ×2 (09:00→17:00)
[2018-12-20] MEDS: RISPERIDONE 0.5 MG TAB PO SCH ×2 (09:00→20:40)
[2018-12-20] MEDS: SPIRONOLACTONE 25 MG TAB PO SCH (09:00)
[2018-12-20] MEDS: AMIODARONE HCL 200 MG TAB PO SCH ×2 (09:00→17:00)
[2018-12-20] MEDS: POTASSIUM CHLORIDE 20 MEQ TAB CR PO SCH (09:00)
[2018-12-20 09:48] LABS: BASOPHILS # (AUTO) 0.1 (0.0-0.1); BASOPHILS % 0.6 % (0.0-1.0); EOSINOPHILS # (AUTO) 0.8 (0.0-0.4); HEMATOCRIT 35.8 % (38.2-49.6); HEMOGLOBIN 12.5 g/dL (14.0-18.0); LYMPHOCYTES # (AUTO) 1.1 (1.0-3.2); LYMPHOCYTES % 11.3 % (18.0-39.1); MEAN CORPUSCULAR HGB CONC 34.9 g/dL (31-35); MEAN CORPUSCULAR VOLUME 88.8 fL (81-99); MONOCYTES % 10.8 % (4.4-11.3); NEUTROPHILS # (AUTO) 6.4 (2.1-6.9); NEUTROPHILS % 68.8 % (38.7-80.0); PLATELET COUNT 241 x10e3/uL (140-360); RED BLOOD COUNT 4.03 x10e6/uL (4.3-5.7); RED CELL DISTRIBUTION WIDTH 18.2 % (11.7-14.4)
[2018-12-20 10:30] LABS: ALANINE AMINOTRANSFERASE 212 IU/L (0-55); ALBUMIN 2.2 g/dL (3.5-5.0); ALBUMIN/GLOBULIN RATIO 0.5 (0.8-2.0); ALKALINE PHOSPHATASE 105 IU/L (40-150); ANION GAP 12.2 mmol/L (8-16); BLOOD UREA NITROGEN 11 mg/dL (7-26); BUN/CREATININE RATIO 14 (6-25); CALCIUM 9.2 mg/dL (8.4-10.2); CARBON DIOXIDE 28 mmol/L (22-29); CHLORIDE 98 mmol/L (98-107); CREATININE, SERUM 0.76 mg/dL (0.72-1.25); EST GLOMERULAR FILTRATION RATE > 60 ML/MIN (60-); GLUCOSE 124 mg/dL (74-118); POTASSIUM 4.2 mmol/L (3.5-5.1); SODIUM 134 mmol/L (136-145)
--- NOTE | 2018-12-20 11:43 | Progress Note ---
DATE: SUBJECTIVE: The patient still complains of pain in the right arm. He has less dyspnea. He is not complaining of cough for congestion. PHYSICAL EXAMINATION: VITAL SIGNS: The patient is afebrile. The blood pressure is 126/82 and the pulse is 88. The respiratory rate is 20. HEENT: Shows no facial swelling or erythema. The nasal mucosa is normal. The oropharynx is normal. LYMPHATIC: Shows no submandibular, cervical, or supraclavicular adenopathy. CARDIAC: Reveals regular rate and rhythm with normal S1 and S2. There are no murmurs or rubs. RESPIRATORY: Auscultation of lungs reveal clear breath sounds bilaterally. There is no wheezing. ABDOMEN: Soft and nontender. There is no rebound or guarding. EXTREMITIES: Show swelling and pain in the right upper extremity. There is some leg edema. IMPRESSION: 1. Multiple venous thrombi including the right upper extremity, lower extremity and pulmonary venous circulation. 2. Acute on chronic systolic congestive heart failure. 3. Atrial fibrillation with a rapid ventricular response. 4. Bipolar illness. 5. Atrial fibrillation. 6. Hepatitis A. PLAN: 1. Repeat liver function tests, renal tests, and electrolytes this morning. 2. Repeat CBC. 3. Await thrombophilia panel and factor Xa level. 4. Await further input from Hematology. 5. Continue Lovenox twice daily. 6. Continue current cardiac regimen. Alfie Ariza MD [facility]/MODL /[id number]
[2018-12-20] MEDS: HYDROCODONE/APAP 7.5MG-325MG 1 EA TAB PO PRN ×2 (13:51→21:01)
[2018-12-20] MEDS: DIGOXIN 0.125 MG TAB PO SCH (17:00)
--- NOTE | 2018-12-20 18:00 | Progress Note ---
DATE: 12/19/2018 Cardiology Progress Note SUBJECTIVE: The patient is awake, alert, and able to lay down flat. No orthopnea and no significant breathing problem at this time. The patient is able to sit at the bedside and is fairly eating food also . The patient's right arm slightly swollen than the left arm. The patient got DVT in both arms, right more than the left especially subclavian vein and internal jugular vein on the right side. The patient also had DVT in the right leg. IMPRESSION: 1. Acute on chronic congestive heart failure and dilated nonischemic cardiomyopathy. 2. Normal coronary arteries. 3. Recurrent pulmonary emboli and the patient got pulmonary emboli at this time also. 4. Recurrent pleural effusions. He had thoracentesis done about four times totally in last two admissions and the patient accumulates fluid very quickly, mainly because he does not take the medication properly. 5. The patient's ejection fraction is about 20%, he needs an AICD. Because he has clot in both the upper arm veins and also at this time, Hematology consult is being called for and he is working on the etiology of this DVTs and we will await further recommendations. 6. He may be candidate for subcutaneous AICD. I will discuss with Alfie Ariza. However, subcutaneous AICD, which I will be able to do, he needs under general anesthesia. After discussing with Alfie Ariza and block hacker, probably we have to go with subcutaneous AICD rather transvenous AICD. 7. I will discuss with him on Saturday. MD ALBERTO Valdez/MIKE /[id number]
--- NOTE | 2018-12-20 18:41 | NUR ---
PT RESTING ON BED BED SIDE REPORT GIVEN TO ONCOMING NURSE
[2018-12-21] VITALS (35 sets, daily range): BP systolic 76–117; BP diastolic 43–94
[2018-12-21] MEDS: ENOXAPARIN SODIUM INJ 100 MG/ML SYR SC SCH ×2 (05:42→18:54)
--- NOTE | 2018-12-21 07:00 | NUR ---
RCD PT AT BED PT IS ALERT AND ORIENTED PT RESTING ON BED NO SIGNS OF ANY DISTRESS NOTED IV PATENT PT C/O PAIN ON THE RT WRIST ON ASSESSMENT REDNESS AND SWELLING BED LOW AND LOCKED CALL LIGHT IN REACH
--- NOTE | 2018-12-21 08:40 | NUR ---
PATIENTS HEART RATE 140 /MT PAGED AND NOTIFIED DR IVAN GOT NEW ORDERS
--- NOTE | 2018-12-21 08:55 | NUR ---
report given to arlyn Cheng
[2018-12-21] MEDS: POTASSIUM CHLORIDE 20 MEQ TAB CR PO SCH (09:00)
[2018-12-21] MEDS: FUROSEMIDE INJ 10 MG/ML 2 ML VIAL IV SCH ×2 (09:00→16:14)
[2018-12-21] MEDS: SPIRONOLACTONE 25 MG TAB PO SCH (09:00)
[2018-12-21] MEDS ORDERED: METOPROLOL TARTRATE INJ 1 MG/ML VIAL IV ONE (09:00)
[2018-12-21] MEDS: RISPERIDONE 0.5 MG TAB PO SCH ×2 (09:00→20:59)
[2018-12-21] MEDS: AMIODARONE HCL 200 MG TAB PO SCH ×2 (09:00→16:14)
--- NOTE | 2018-12-21 09:00 | NUR ---
PAGED AND NOTIFIED DR CASTILLO PT IS TRANSFERRING TO ICU FOR AMANDA STACK
--- NOTE | 2018-12-21 09:03 | NUR ---
PT TRANSFERRED TO ICU IN SAFE CONDITION
[2018-12-21] MEDS: DILTIAZEM HCL 125 ML IV SCH (09:41)
[2018-12-21] MEDS: DIGOXIN 0.125 MG TAB PO SCH (16:14)
[2018-12-22] VITALS (45 sets, daily range): BP systolic 77–130; BP diastolic 53–116
[2018-12-22 05:09] LABS: BASOPHILS # (AUTO) 0.1 (0.0-0.1); BASOPHILS % 0.7 % (0.0-1.0); EOSINOPHILS # (AUTO) 1.1 (0.0-0.4); EOSINOPHILS % 10.9 % (0.0-6.0); HEMATOCRIT 36.6 % (38.2-49.6); HEMOGLOBIN 12.7 g/dL (14.0-18.0); LYMPHOCYTES # (AUTO) 1.7 (1.0-3.2); LYMPHOCYTES % 16.7 % (18.0-39.1); MEAN CORPUSCULAR HEMOGLOBIN 30.7 pg (28-32); MEAN CORPUSCULAR HGB CONC 34.7 g/dL (31-35); MEAN CORPUSCULAR VOLUME 88.4 fL (81-99); MONOCYTES # (AUTO) 1.1 (0.2-0.8); MONOCYTES % 10.7 % (4.4-11.3); NEUTROPHILS # (AUTO) 6.1 (2.1-6.9); NEUTROPHILS % 60.5 % (38.7-80.0); PLATELET COUNT 327 x10e3/uL (140-360); RED BLOOD COUNT 4.14 x10e6/uL (4.3-5.7); RED CELL DISTRIBUTION WIDTH 18.4 % (11.7-14.4)
[2018-12-22 05:26] LABS: ANION GAP 12.2 mmol/L (8-16); BLOOD UREA NITROGEN 8 mg/dL (7-26); BUN/CREATININE RATIO 11 (6-25); CALCIUM 8.9 mg/dL (8.4-10.2); CARBON DIOXIDE 25 mmol/L (22-29); CHLORIDE 97 mmol/L (98-107); CREATININE, SERUM 0.72 mg/dL (0.72-1.25); EST GLOMERULAR FILTRATION RATE > 60 ML/MIN (60-); GLUCOSE 89 mg/dL (74-118); POTASSIUM 4.2 mmol/L (3.5-5.1); SODIUM 130 mmol/L (136-145)
[2018-12-22] MEDS: ENOXAPARIN SODIUM INJ 100 MG/ML SYR SC SCH ×2 (05:57→18:35)
[2018-12-22] MEDS: SPIRONOLACTONE 25 MG TAB PO SCH (09:00)
[2018-12-22] MEDS: AMIODARONE HCL 200 MG TAB PO SCH ×2 (09:00→18:00)
[2018-12-22] MEDS: FUROSEMIDE INJ 10 MG/ML 2 ML VIAL IV SCH ×2 (09:00→18:00)
[2018-12-22] MEDS: RISPERIDONE 0.5 MG TAB PO SCH ×2 (09:00→21:06)
[2018-12-22] MEDS: POTASSIUM CHLORIDE 20 MEQ TAB CR PO SCH (09:00)
[2018-12-22] MEDS: DILTIAZEM HCL 125 ML IV SCH (09:15)
[2018-12-22] MEDS ORDERED: SODIUM CHLORIDE 0.9% 50ML 50 ML ONE (14:31)
[2018-12-22] MEDS ORDERED: IOPAMIDOL 370 MG/ML 200 ML INFUS..BTL INJ ONE (14:31)
--- NOTE | 2018-12-22 14:44 | Diagnostic Imaging Report ---
EXAM: CT Abdomen and Pelvis WITH contrast INDICATION: Elevated CA 19-9. COMPARISON: CT of the abdomen with contrast 12/17/2018. TECHNIQUE: Abdomen and pelvis were scanned utilizing a multidetector helical scanner from the lung base to the pubic symphysis after administration of IV contrast. Coronal and sagittal reformations were obtained. Pancreatic mass protocol was performed. Scan was performed during arterial and portal venous phase within the abdomen and delayed phase within the abdomen and pelvis. IV CONTRAST: 100 mL of Omnipaque 300 ORAL CONTRAST: Water COMPLICATIONS: None RADIATION DOSE: Total DLP: 1194 mGy*cm Estimated effective dose: (DLP x 0.015 x size factor) mSv CTDIvol has been reviewed. It is below the limits set by the Radiation Protocol Committee (RPC). FINDINGS: LINES and TUBES: None. LOWER THORAX: Bilateral pleural effusions, left greater than right with associated atelectasis. Subpleural wedge-shaped opacity within the right middle lobe is similar to the prior studies. Cardiomegaly. HEPATOBILIARY: Unchanged subcentimeter hypodensities in the right hepatic lobe, too small to characterize, but likely representing cysts. No biliary ductal dilation. GALLBLADDER: No radio-opaque stones or sludge. No wall thickening. SPLEEN: No splenomegaly. Again noted is a wedge-shaped hypodensity within the spleen, suggestive of small infarct. PANCREAS: No focal masses or ductal dilatation. ADRENALS: No adrenal nodules KIDNEYS/URETERS: Kidneys enhance symmetrically. No evidence of hydronephrosis, solid mass, or stone. Partially duplicated left-sided collecting system. No evidence of urothelial lesion on delayed images. GI TRACT: No evidence of wall thickening or distension. Appendix is normal. PELVIC ORGANS/BLADDER: Unremarkable. LYMPH NODES: No lymphadenopathy. VESSELS: Reflux of contrast into the IVC, suggestive of right heart dysfunction. PERITONEUM / RETROPERITONEUM: No free air or fluid. BONES AND SOFT TISSUES: No acute osseous abnormality. No suspicious lytic or blastic lesions. Mild degenerative disc changes in the lower lumbar spine. CONCLUSION: No CT evidence of pancreatic mass. Cardiomegaly with bilateral pleural effusions, left greater than right with associated atelectatic changes. Peripheral wedge shaped opacity within the right middle lobe, which may reflect atelectasis or pulmonary infarct. Signed by: Dr. Yasmeen Cain MD on 12/22/2018 2:41 PM
--- NOTE | 2018-12-22 14:55 | NUR ---
SPOKE WITH PT ABOUT RESOURCES FOR COMMUNITY, GAVE APARTMENT LISTS OF LOW COST APARTMENT. GAVE RESOURCES FOR [facility], [address] IN [place], GAVE RESOURCES FOR [facility] SO THAT HE WILL BE ABLE TO KEEP HIS VEHICLE. ALSO GAVE RESOURCES FOR FREE ELIQUIS FOR 4 MONTHS AND EXPLAINED THAT IF HE CALLS AND REGISTERS THE CARD THEY WILL GIVE HIM THE MEDICATIONS FOR A YEAR AND ASSIST WITH ALL OTHER MEDIATIONS. HE STATES HE UNDERSTANDS AND WILL FOLLOW UP.
--- NOTE | 2018-12-22 15:03 | Progress Note ---
DATE: Pulmonary Critical Care Progress Note SUBJECTIVE: The patient has less arm pain. He has been gradually weaned off Cardizem. Hematology re-evaluated the patient yesterday. He is concerned about an occult malignancy and recommended a three-phase CT scan with a pancreatic protocol. PHYSICAL EXAMINATION: VITAL SIGNS: The patient is afebrile. The blood pressure is 98/73, saturation is 94% on 2 L. Heart rate is 104 and the respiratory rate is 18. HEENT: Shows no facial swelling or erythema. CARDIAC: Reveals irregularly irregular rhythm with a normal S1 and S2. LUNGS: Auscultation of lungs shows clear breath sounds bilaterally. There is no wheezing. ABDOMEN: Soft, nontender. There is no rebound or guarding. EXTREMITIES: There is significantly less swelling in the right arm. There is minimal leg edema. LABORATORY DATA: The BUN to creatinine ratio is 8:0.72 and the other electrolytes are within normal limits. The white blood cell count is 10 and hemoglobin of 12.7. The platelet count is 327. IMPRESSION: 1. Multiple venous thrombi including the right upper extremity, lower extremity, and pulmonary circulation. 2. Acute pulmonary embolism. 3. Acute on chronic systolic congestive heart failure. 4. Atrial fibrillation with rapid ventricular response. 5. Acute hepatitis A. 6. Bipolar illness. PLAN: 1. Wean patient off Cardizem and switch to p.o. medications. 2. A CT scan with pancreatic protocol as recommended by Hematology. 3. Await final results of thrombophilia profile. 4. Social Service consult to help patient for medications as an outpatient. 5. Continue Lovenox until we are able to switch patient over to p.o. medications. MD LEONIDAS Rudolph/MIKE /[id number]
--- NOTE | 2018-12-22 15:58 | Progress Note ---
DATE: Cardiology Progress Note SUBJECTIVE: The patient is seen in ICU. The patient is on Cardizem very low dose. Heart rate is 102 per minute. At this time, I will discontinue Cardizem, put p.o. Cardizem CD 240 mg once a day and metoprolol 25 b.i.d. along with digoxin and amiodarone and his blood pressure systolic is 80 mmHg acceptable at this time clinically and I discussed with the clinical dietitian. At this time, he is doing further evaluation for possible any malignancy, till that time we will continue Lovenox and I discussed with him oral anticoagulants and according to Hematology, we can give newer oral anticoagulants like Eliquis, then we will switch to p.o. At this time, he has diagnosis of a nonischemic cardiomyopathy, ejection fraction of 20% to 25%, recurrent atrial fibrillation, recurrent heart failure. At this time, no AICD planned at least for next two months or so. Once his etiology for this thrombophilia is made, maybe we will consider putting a subcu AICD. At this time, I did not discuss anything about AICD with the patient. After we make diagnosis on thrombophilia then can probably, we will think about putting an AICD. At this time, we will continue medical treatment. We may have some problem adjusting congestive heart failure treatment because of low blood pressure. However, probably we will be able to attain it if blood pressure systolic 80 to 90 mmHg and appears quite comfortable at this time. I will continue to follow the patient with Dr. Alfie Ariza and with clinical dietitian. MD ALBERTO Valdez/ALBERTOL /[id number]
--- NOTE | 2018-12-22 17:08 | Progress Note ---
DATE: 12/22/2018 Psychiatric Progress Note SUBJECTIVE: The patient evaluated and events noted. The patient is in the ICU. He is alert, awake, and oriented to situation. He states that his hallucinations were better from last week with less intense, but he still intermittently having hallucination. He denies any depression. He denies any suicidal or homicidal ideation. He is still somewhat paranoid, believes certain people act to harm him. He is calm and cooperative. He denies any problem with sleep or appetite. He refuses inpatient psychiatry when offered. ASSESSMENT: 1. Bipolar 1 disorder, recurrent. 2. Moderate psychosis. 3. Alcohol abuse. PLAN: 1. Increase Risperdal to 0.5 mg p.o. q.12 hours. 2. Continue p.r.n. Haldol. 3. Recommend total abstinence from alcohol. 4. Monitor for mood and psychosis. 5. Supportive therapy. 6. The patient is cleared from psych standpoint. He refused inpatient psychiatry at this time. Dictated by Guerda Henriquez PA-C Kirsten Santillan MD [facility]/MODL /[id number]
[2018-12-22] MEDS: DILTIAZEM HCL ER 120 MG CAP PO SCH (18:00)
[2018-12-22] MEDS: DIGOXIN 0.125 MG TAB PO SCH (18:00)
[2018-12-22] MEDS: METOPROLOL TARTRATE 25 MG TAB PO SCH (18:00)
[2018-12-23] VITALS (21 sets, daily range): BP systolic 74–146; BP diastolic 50–129
[2018-12-23] MEDS: ENOXAPARIN SODIUM INJ 100 MG/ML SYR SC SCH ×2 (05:34→18:00)
[2018-12-23] MEDS: DILTIAZEM HCL 125 ML IV SCH (08:30)
[2018-12-23] MEDS: FUROSEMIDE INJ 10 MG/ML 2 ML VIAL IV SCH ×2 (08:33→16:53)
[2018-12-23] MEDS: AMIODARONE HCL 200 MG TAB PO SCH ×2 (08:34→16:53)
[2018-12-23] MEDS: METOPROLOL TARTRATE 25 MG TAB PO SCH ×3 (08:34→18:01)
[2018-12-23] MEDS: DILTIAZEM HCL ER 120 MG CAP PO SCH (08:34)
[2018-12-23] MEDS: POTASSIUM CHLORIDE 20 MEQ TAB CR PO SCH (08:34)
[2018-12-23] MEDS: RISPERIDONE 0.5 MG TAB PO SCH ×2 (08:34→20:59)
[2018-12-23] MEDS: SPIRONOLACTONE 25 MG TAB PO SCH (08:35)
--- NOTE | 2018-12-23 12:33 | NUR ---
dr guzman here to see patient. writes prescription for eliquis. instructs patient to come to office if he is going to d/c to get some samples of eliquis. states his office with help with the prescription card for eliquis. prescription copied and placed on chart.
--- NOTE | 2018-12-23 14:30 | NUR ---
patient c/o of trouble breathing, states they drained his right lung but he still feels like there is junk on the left side. dr. muñiz rounded, orders 2 view chest xray and thoracentesis. also states hold lovenox.
--- NOTE | 2018-12-23 15:54 | Diagnostic Imaging Report ---
Chest, 2 views, 12/23/2018. History: Congestion. Comparison: CT 12/16/2018. Findings: The cardiomediastinal silhouette and pulmonary vasculature are prominent. Hazy perihilar and bibasilar opacities are present with blunting of the costophrenic sulci, left greater than right. There are no acute osseous or soft tissue abnormalities. Impression: CHF with bibasilar atelectasis/effusions, left greater than right. Signed by: Saleem Lane on 12/23/2018 3:51 PM
--- NOTE | 2018-12-23 16:19 | Progress Note ---
DATE: SUBJECTIVE: The patient reports increased congestion and difficulty taking a deep breath. He believes it is more on the left side than the right. He was weaned off the Cardizem yesterday. There are no fevers. He has no cough or phlegm production. PHYSICAL EXAMINATION: VITAL SIGNS: The patient is afebrile. The blood pressure is 95/64 and the pulse is 67. The respiratory rate is 24. Saturation is 98% on room air. HEENT: Shows no facial swelling or erythema. The nasal mucosa is normal. The oropharynx is normal. LYMPHATIC: Shows no submandibular, cervical, or supraclavicular adenopathy. CARDIAC: Reveals regular rate and rhythm with normal S1, S2. There are no murmurs or rubs heard. LUNGS: Auscultation of lungs reveals decreased breath sounds on the left side. ABDOMEN: Soft, nontender. There is no rebound or guarding. EXTREMITIES: Show no leg edema or calf tenderness. There is no cyanosis or clubbing. SKIN: Shows no rashes. NEUROLOGIC: Shows no focal abnormalities. IMPRESSION: 1. Sumfo-si-qnmhrcg systolic congestive heart failure. 2. Left pleural effusion. 3. Acute pulmonary embolism. 4. Multiple venous thrombi including the right upper extremity and lower extremities. 5. Atrial fibrillation with rapid ventricular response. 6. Acute hepatitis A. 7. Bipolar illness. PLAN: 1. The patient will have a PA and lateral chest x-ray now. 2. Ultrasound-guided thoracentesis. 3. Plan for discharge tomorrow on Eliquis. The patient has a coupon for Eliquis. He will also be able to go to the Hematology office to receive some samples. 4. Await results of thrombophilia screen. Alfie Ariza MD [facility]/MIKE /[id number]
[2018-12-23] MEDS: DIGOXIN 0.125 MG TAB PO SCH (16:52)
--- NOTE | 2018-12-23 21:05 | Progress Note ---
DATE: 12/23/2018 Cardiology Progress Note SUBJECTIVE: The patient is seen in the room. The patient is awake, alert, atrial fibrillation , well controlled rate about 90-100 per minute, and the patient is able to lie down flat with no orthopnea. The patient's chest x-ray shows some pleural effusion, still present. The patient is alert with significant LV dysfunction, dilated nonischemic cardiomyopathy. The patient also got thrombophilia, the etiology of thrombocytopenia is being investigated by copra sampler. CARDIAC DIAGNOSES: 1. Nonischemic cardiomyopathy. 2. Thrombophilia. The patient got clots in both the veins, right subclavian and left subclavian veins and also right internal jugular vein and right leg vein and also pulmonary emboli. The patient needs to be on long-term lifelong anticoagulant treatment and I discussed with copra sampler, he prefers Eliquis over the Coumadin, so at this time, the patient will go home with Eliquis 5 mg p.o. b.i.d. and also to go home with amiodarone, Cardizem, digoxin, metoprolol, lisinopril, and spironolactone. However, we have to periodically check his dig level. The combination of amiodarone and Cardizem have increased digitoxicity and this also I will explain to the patient and he has to come and have the blood test done and if the patient wishes, he can come to my office or follow up with Alfie Ariza or with copra sampler, but he has significant issues. There is a good possibility he may have recurrent congestive heart failure and also, the patient has dilated nonischemic cardiomyopathy, ejection 20%, sudden is increased. However, we cannot put any devices because of this thrombophilia. However, I told him that in 4 to 6 weeks we will try to put subcutaneous AICD. The patient is agreeable for that. I told him he has to come back and followup with us in the hospital. We will plan for subcutaneous AICD if he wants in this hospital. The patient is agreeable at this time. The patient at this time maybe discharged from cardiac point of view at the discretion of Dr. Alfie Ariza and other consultants. MD ALBERTO Valdez/ALBERTOL /[id number]
[2018-12-24] VITALS (11 sets, daily range): BP systolic 87–129; BP diastolic 59–90
[2018-12-24] MEDS: ENOXAPARIN SODIUM INJ 100 MG/ML SYR SC SCH ×2 (06:00→11:12)
[2018-12-24] MEDS: DILTIAZEM HCL 125 ML IV SCH (08:23)
[2018-12-24] MEDS: FUROSEMIDE INJ 10 MG/ML 2 ML VIAL IV SCH (09:00)
--- NOTE | 2018-12-24 10:37 | NUR ---
1200 CCS OF PLEURAL FLUID DRAINED FROM LEFT LUNG
--- NOTE | 2018-12-24 10:38 | Diagnostic Imaging Report ---
Examination: Single AP view of the chest. COMPARISON: 12/23/2018 INDICATION: Status post left thoracentesis DISCUSSION: See impression IMPRESSION: Interval left thoracentesis with near complete evacuation of left pleural effusion. No pneumothorax. Persistent small right pleural effusion with patchy lower and middle lobe opacities, likely atelectasis. Signed by: Dr. Jaskaran Max M.D. on 12/24/2018 10:35 AM
[2018-12-24] MEDS ORDERED: ONDANSETRON HCL 4 MG ORAL DISINTEGRATING TAB PO PRN (10:45)
[2018-12-24] MEDS ORDERED: FUROSEMIDE 20 MG TAB PO SCH (11:00)
--- NOTE | 2018-12-24 11:02 | NUR ---
WOUND CARE PUP SCREEN Diego Score: 20 PUP: Conservative LOS: 10 days Age: 48 [address] Patient Position: Back PATIENT VISIT / SKIN CHECK: No Pressure Ulcers Identified. RECOMMENDATION: - Continue Conservative PUP Addendum: 12/24/18 at 1306 by Phan Viera RN Amended: Links added.
[2018-12-24] MEDS: POTASSIUM CHLORIDE 20 MEQ TAB CR PO SCH (11:09)
[2018-12-24] MEDS: AMIODARONE HCL 200 MG TAB PO SCH (11:09)
[2018-12-24] MEDS: SPIRONOLACTONE 25 MG TAB PO SCH (11:09)
[2018-12-24] MEDS: METOPROLOL TARTRATE 25 MG TAB PO SCH (11:10)
[2018-12-24] MEDS: RISPERIDONE 0.5 MG TAB PO SCH (11:10)
--- NOTE | 2018-12-24 11:15 | Diagnostic Imaging Report ---
Procedure: Ultrasound-guided left thoracentesis. shell machine operator: Dr. Max Pre-operative diagnosis: Moderate left pleural effusion Post-operative diagnosis: Moderate left pleural effusion. Conscious Sedation: None Additional Medications: Lidocaine 1% for local anesthesia Contrast used: None Estimated blood loss: Minimal Blood proximal administered: None Specimens: 1200 cc sanguinous fluid Implants: None Condition at completion: Stable Disposition: In ICU Complications: No immediate DISCUSSION: Informed consent for the procedure was obtained from the patient and documented in the medical record. Preliminary sonographic evaluation showed presence of a moderate left pleural effusion. The patient was placed in the upright position. The left lower back was prepped and draped in the standard sterile fashion. A suitable percutaneous intercostal approach to the left pleural space was identified and the overlying skin was infiltrated with 1% lidocaine for local anesthesia. Then under continuous sonographic guidance, a 5 [place] Cheggine[place] needle catheter was advanced into the pleural space. The catheter was advanced off the needle and connected to vacuum bottle with subsequent evacuation of 1200 cc of sanguinous fluid. The catheter was removed and a sterile, occlusive dressing was applied. Postprocedure sonographic image showed essentially complete evacuation of the pleural effusion. The patient tolerated the procedure well without immediate complication. Specimen was submitted for laboratory analysis as requested by the referring clinical team. IMPRESSION: Successful ultrasound-guided left thoracentesis with evacuation of 1200 cc sanguinous fluid. Signed by: Dr. Jaskaran Max M.D. on 12/24/2018 11:12 AM
--- NOTE | 2018-12-24 12:08 | NUR ---
discharged patient home. discussed all meds with him. patient states he has eliquis discount card. patient has precri[ptions too. patient instructed to go to dr guzman's office for samples, office address given. office addresses and phone numbers also given for kellie muñiz and gary. pt instructed to follow up with them as well. verb'd understanding. wheeled to parking lot in stable condition.
[2018-12-24 12:20] LABS: BODY FLUID TYPE PLEURAL
[2018-12-24 12:21] LABS: BODY FLUID COLOR RED
[2018-12-24 12:22] LABS: BODY FLUID APPEARANCE CLOUDY
[2018-12-24 12:24] LABS: RBC,BODY FLUID 64350 cells/uL; WBC,BODY FLUID 4703 cells/uL
[2018-12-24 12:38] LABS: EOSINOPHILS,BODY FLUID 39 %; MONO/MACROPHG,BODY FLUID 2 %; NEUTROPHILS,BODY FLUID 12 %
[2018-12-24 12:39] LABS: LYMPHOCYTES,BODY FLUID 43 %
[2018-12-24 12:40] LABS: OTHER CELLS,BODY FLUID 4 %
--- NOTE | 2018-12-24 15:19 | Progress Note ---
DATE: Cardiology Progress Note SUBJECTIVE: The patient is in ICU. The patient is improved very much comparatively since he came to the hospital. The patient's shortness of breath is better. DIAGNOSES: 1. Acute on chronic congestive heart failure. 2. Dilated nonischemic cardiomyopathy. 3. Pulmonary emboli. 4. Deep vein thrombosis of the right leg, bilateral arms, subclavian vein, and possible thrombophilia. 5. Bipolar disorder. 6. Normal coronary arteries. HOSPITAL COURSE: Mr. Timo Barraza is a 48-year-old gentleman, the third admission to this hospital. He comes always with acute on chronic congestive heart failure. This time also, he came with same symptoms of heart failure. He had a thoracentesis performed three times during this hospitalization and straw-colored fluid was aspirated and the patient was found to have a DVT in the right leg and upper arm veins, more in the left subclavian vein and also internal jugular on the right side. The patient also diagnosed with pulmonary emboli. The patient has had a previous pulmonary emboli and DVT also. The patient usually does not take his medications. At this time, the patient already seen by Dr. Alfie Ariza, myself, and Dr. Ramirez, [facility] and patient improved considerably. The patient also was in paroxysmal atrial fibrillation. The patient was discharged with antiarrhythmic medication like amiodarone, digoxin, and metoprolol. At this time, I held Cardizem because of heart rate of 60 per minute, blood pressure 90/17. The patient is very much anxious to go home also. The patient's shortness of breath improved very much. Left ventricular ejection fraction 25% with dilated left ventricle. The patient needs to have some time AICD, the possibility of subcutaneous AICD discussed with him because he is developing thrombosis of the veins. At this time, transvenous AICD may not be a good choice for him. However, at this time, the patient is very anxious to go home. He went home with all the medications including bipolar medications, please see the discharge reconciliation medications. The patient also has [facility]'s phone number. I believe [facility] is going to give him some samples of Eliquis. I will follow the patient from cardiac point of view. If he comes to my office or comes to the hospital, the patient is high risk of developing sudden including ventricular fibrillation with ventricular tachycardia and also some recurrent pulmonary emboli. The patient understood. He said he will take his medications at home. MD ALBERTO Valdez/MIKE /[id number]
--- NOTE | 2018-12-25 05:22 | Discharge Summary ---
DISCHARGE MEDICATIONS: 1. Carvedilol 3.125 mg p.o. b.i.d. 2. Eliquis 5 mg p.o. b.i.d. 3. Amiodarone 200 mg p.o. b.i.d. DISCHARGE DIAGNOSES: 1. Acute on chronic systolic congestive heart failure. 2. Acute pulmonary embolism. 3. Multiple thromboemboli including the right upper extremity, lower extremities, and pulmonary circulation. 4. Atrial fibrillation with rapid ventricular response. 5. Acute hepatitis A. 6. Bipolar illness. CONSULTING PHYSICIANS: 1. Dr. Mathew of Cardiology. 2. Dr. Presley of Hematology. 3. Dr. Santillan of Psychiatry. PROCEDURES: 1. Right-sided thoracentesis performed by Interventional Radiology. 2. Left-sided ultrasound-guided thoracentesis performed by Radiology. RADIOGRAPHIC DATA: Chest CT showed a pulmonary embolism in the right interlobular pulmonary artery extending to the right lower lobe pulmonary artery. The patient also had small to moderate pleural effusion. The patient had cardiomegaly as well as opacification of the right subclavian vein suggestive of possible thrombosis. Abdominal pelvic CT scans showed no acute disease in the abdomen or pelvis. The patient had cardiomegaly with bilateral pleural effusions and wedge-shaped opacity in the right middle lobe suggestive of infarction or atelectasis. Venous duplex of the upper extremities showed a DVT in the right upper extremity. Venous duplex of the lower extremities showed deep vein thrombosis in the right lower extremity. Echocardiogram showed a decreased ejection fraction of 20% to 25%. The patient had moderate TR as well as dilated IVC and some atrial fibrillation. HISTORY OF PRESENT ILLNESS: The patient is a 48-year-old man. He was previously hospitalized with a systolic cardiomyopathy and atrial fibrillation. He had an echocardiogram that showed decreased ejection fraction of 20% to 25%. He had a cardiac catheterization that showed no coronary artery disease. He was scheduled to have a pacemaker and AICD, but left prior to having the procedure done. He subsequently returned complaining of cough and congestion. He complained of palpitations and difficulty breathing. He denied fever or chest pain. HOSPITAL COURSE: The patient was admitted. He was found to be in rapid atrial fibrillation. He was started on an amiodarone drip along with beta-blockers and digoxin. He received diuretics. He had improvement with this initially and was switched to oral medications. His hospital course was subsequently complicated by swelling in the lower extremities. His venous duplex studies showed a DVT in the right leg. A CT scan also showed segmental pulmonary embolism. He was started on Lovenox. Once again, he did well on this initially, but subsequently developed swelling in his arm that appeared to be related to an IV. The IV was removed and a venous duplex showed another thrombosis. The patient was subsequently sent to the floor, but developed rapid atrial fibrillation. He had to be transferred back to the intensive care unit and restarted on Cardizem. He was gradually weaned off the Cardizem and switched to p.o. medications. He had a large left pleural effusion and underwent thoracentesis the next day. He subsequently felt better and was eager to go home. DISPOSITION: The patient will be discharged home. He will follow up with Dr. Ariza and Dr. Presley. He will begin Eliquis. He will receive samples through Dr. Presley's office and will receive a discount card to obtain the medication through the company. Alfie Ariza MD [facility]/MIKE /[id number]
== END 2018-12-24 12:08 | disposition home or self-care (01) | DRG 291 ==
LOC: ER 19:57 → ERHOLD 23:02 → ICU 12-13 07:27 → MED/SURG2 12-19 12:11 → ICU 12-21 08:56
PROVIDERS: ADMIT Internal Medicine Critical Care Medicine; ATTEND Internal Medicine Critical Care Medicine
PROC: 0W993ZX Drainage of Right Pleural Cavity, Percutaneous Approach, Diagnostic (ICD-10-PCS; principal; 2018-12-15)
PROC: 0W9B3ZX Drainage of Left Pleural Cavity, Percutaneous Approach, Diagnostic (ICD-10-PCS; 2018-12-24)
DX: I11.0 Hypertensive heart disease with heart failure (principal); I26.99 Other pulmonary embolism without acute cor pulmonale; E87.1 Hypo-osmolality and hyponatremia; F31.5 Bipolar disorder, current episode depressed, severe, with psychotic features; F31.64 Bipolar disorder, current episode mixed, severe, with psychotic features; B15.9 Hepatitis A without hepatic coma; I82.623 Acute embolism and thrombosis of deep veins of upper extremity, bilateral; I82.411 Acute embolism and thrombosis of right femoral vein; I82.431 Acute embolism and thrombosis of right popliteal vein; D68.59 Other primary thrombophilia; J90 Pleural effusion, not elsewhere classified; I48.91 Unspecified atrial fibrillation; I50.23 Acute on chronic systolic (congestive) heart failure; J44.9 Chronic obstructive pulmonary disease, unspecified; F17.210 Nicotine dependence, cigarettes, uncomplicated; Z86.718 Personal history of other venous thrombosis and embolism; Z86.711 Personal history of pulmonary embolism; Z82.49 Family history of ischemic heart disease and other diseases of the circulatory system; I42.8 Other cardiomyopathies; Z72.89 Other problems related to lifestyle; D64.9 Anemia, unspecified; Z59.0 Homelessness
CPT/HCPCS: 32555; 36415; 71045; 71046; 71260; 74160; 74178; 76700; 80048; 80053; 80061; 80162; 80307; 81001; 81241; 81400; 82105; 82378; 82550; 82553; 82784; 82785; 83615; 83880; 84152; 84155; 84157; 84165; 84478; 84484; 85025; 85303; 85306; 85610; 85730; 86301; 86708; 86803; 87070; 87205; 87340; 88112; 88305; 89051; 93005; 93306; 93970; 94640; 99284; J1160; J1650; J1940; J2405; Q9967

== ENCOUNTER 2019-01-10 00:49 | Observation (INO) | payer MEDICARE ==
[2019-01-10] VITALS (7 sets, daily range): BP systolic 102–130; BP diastolic 58–81
[~2019-01-10] VITALS: Ht 172.7 cm; Wt 97.5 kg
[2019-01-10] MEDS ORDERED: DILTIAZEM HCL 5 MG/ML 5 ML VIAL IV ONE (01:30)
[2019-01-10 01:43] LABS: BASOPHILS # (AUTO) 0.1 (0.0-0.1); BASOPHILS % 0.9 % (0.0-1.0); EOSINOPHILS # (AUTO) 0.2 (0.0-0.4); EOSINOPHILS % 2.2 % (0.0-6.0); HEMATOCRIT 31.3 % (38.2-49.6); HEMOGLOBIN 10.8 g/dL (14.0-18.0); LYMPHOCYTES # (AUTO) 1.5 (1.0-3.2); LYMPHOCYTES % 13.5 % (18.0-39.1); MEAN CORPUSCULAR HEMOGLOBIN 31.1 pg (28-32); MEAN CORPUSCULAR HGB CONC 34.5 g/dL (31-35); MEAN CORPUSCULAR VOLUME 90.2 fL (81-99); MONOCYTES # (AUTO) 1.3 (0.2-0.8); MONOCYTES % 11.7 % (4.4-11.3); NEUTROPHILS # (AUTO) 7.7 (2.1-6.9); NEUTROPHILS % 71.1 % (38.7-80.0); PLATELET COUNT 514 x10e3/uL (140-360); RED BLOOD COUNT 3.47 x10e6/uL (4.3-5.7); RED CELL DISTRIBUTION WIDTH 19.1 % (11.7-14.4)
[2019-01-10 01:50] LABS: INR 1.74
[2019-01-10 01:51] LABS: PARTIAL THROMBOPLASTIN TIME 46.3 seconds (23.8-35.5)
--- NOTE | 2019-01-10 01:53 | NUR ---
MD ORDERED DO NOT GIVE CARDIZEM FOR NOW DUE TO LOW BLOOD PRESSURE
[2019-01-10 02:19] LABS: ALANINE AMINOTRANSFERASE 15 IU/L (0-55); ALBUMIN/GLOBULIN RATIO 0.4 (0.8-2.0); ALKALINE PHOSPHATASE 86 IU/L (40-150); ANION GAP 12.4 mmol/L (8-16); BLOOD UREA NITROGEN 14 mg/dL (7-26); BUN/CREATININE RATIO 16 (6-25); CALCIUM 8.6 mg/dL (8.4-10.2); CARBON DIOXIDE 27 mmol/L (22-29); CHLORIDE 99 mmol/L (98-107); CREATINE KINASE 17 IU/L (30-200); CREATININE, SERUM 0.85 mg/dL (0.72-1.25); EST GLOMERULAR FILTRATION RATE > 60 ML/MIN (60-); GLUCOSE 104 mg/dL (74-118); POTASSIUM 3.4 mmol/L (3.5-5.1); SODIUM 135 mmol/L (136-145)
--- NOTE | 2019-01-10 02:44 | Diagnostic Imaging Report ---
EXAMINATION: CHEST 2 VIEWS INDICATION: ^eval for pulmonary edema ^[id number] ^[id number] ^Y COMPARISON: 12/24/2018 FINDINGS: PA and lateral views TUBES and LINES: None. LUNGS and PLEURA: Lungs are well inflated. Moderate to large left pleural effusion, increased from prior exam. Not significantly changed small right pleural effusion. Central vascular congestion and mild interstitial edema. HEART AND MEDIASTINUM: The cardiac silhouette is obscured. BONES AND SOFT TISSUES: No acute osseous lesion. Soft tissues are unremarkable. UPPER ABDOMEN: No free air under the diaphragm. IMPRESSION: Increased left pleural effusion, now moderate to large. Otherwise, no significant interval change from prior exam. Signed by: Dr. Diego Royal MD on 01/10/2019 2:40 AM
[2019-01-10] MEDS ORDERED: FUROSEMIDE INJ 10 MG/ML 2 ML VIAL IV ONE (03:45)
[2019-01-10] MEDS ORDERED: AMIODARONE HCL200 MG PO (03:46)
[2019-01-10] MEDS ORDERED: RISPERIDONE0.5 MG PO (03:46)
[2019-01-10] MEDS ORDERED: ELIQUIS PO (03:46)
[2019-01-10] MEDS ORDERED: POTASSIUM CHLORIDE 20 MEQ TAB CR PO STA (04:52)
[2019-01-10] MEDS ORDERED: NON-FORMULARY MEDICATION ([Eliquis] 5 MG) PO SCH (05:00)
[2019-01-10] MEDS ORDERED: RISPERIDONE 0.5 MG TAB PO SCH ×2 (05:15→09:00)
[2019-01-10] MEDS ORDERED: FUROSEMIDE INJ 10 MG/ML 2 ML VIAL IV SCH (09:00)
[2019-01-10] MEDS ORDERED: AMIODARONE HCL 200 MG TAB PO SCH (09:00)
[2019-01-10] MEDS ORDERED: APIXABAN 5 MG TABLET PO SCH (09:00)
[2019-01-10] MEDS ORDERED: CARVEDILOL 3.125 MG TAB PO SCH (09:00)
[2019-01-10 10:02] LABS: CREATINE KINASE MB 0.6 ng/mL (0-5.0)
[2019-01-10] MEDS ORDERED: PNEUMOCOCCAL VACCINE POLYVALENT 23 MCG/0.5 ML VIAL IM SCH (11:30)
[2019-01-10] MEDS ORDERED: ZOLPIDEM TARTRATE 5 MG TAB PO PRN (12:00)
[2019-01-10] MEDS ORDERED: POTASSIUM CHLORIDE 20 MEQ TAB CR PO NR (12:00)
--- NOTE | 2019-01-10 12:31 | Pre Op History & Physical ---
CHIEF COMPLAINT: Dyspnea. HISTORY OF PRESENT ILLNESS: The patient is a 48-year-old man. He has a history of cardiomyopathy with an ejection fraction of 20% to 25%. He had a cardiac catheterization that showed no coronary artery disease. He also has a history of pulmonary emboli as well as thrombosis in his right upper extremity and his lower extremities. He has been on blood thinners at home. He came to the hospital complaining of worsening dyspnea and congestion. He had no fevers or cough. He is not having any pain in his chest. He denies any fever or cough. PAST SURGICAL HISTORY: Recent cardiac catheterization. PAST MEDICAL HISTORY: 1. Pulmonary emboli. 2. Atrial fibrillation. 3. Systolic cardiomyopathy. SOCIAL HISTORY: The patient has no recent smoking history. He is not a drinker. He has no illicit drug use. FAMILY HISTORY: Family history is noncontributory. ALLERGIES: THERE ARE NO KNOWN DRUG ALLERGIES. REVIEW OF SYSTEMS: There is no fever. He has no headaches. He has no chest pain. He has no abdominal pain. He has no nausea or vomiting. He has no leg edema. PHYSICAL EXAMINATION: VITAL SIGNS: The patient is afebrile, the blood pressure is 103/81, the pulse is 100 to 110 and is irregularly irregular. HEENT: Shows no facial swelling or erythema. The oropharynx is normal. LYMPHATIC: Shows no submandibular, cervical, or supraclavicular adenopathy. CARDIAC: Reveals an irregularly irregular rhythm. There is normal S1 and S2. There are no murmurs or rubs heard. LUNGS: Auscultation of the lungs reveals decreased breath sounds on the left side. ABDOMEN: Soft, nontender. There is no rebound or guarding. EXTREMITIES: Show no leg edema or calf tenderness. There is no cyanosis or clubbing. SKIN: Shows no rashes. NEUROLOGICAL: Shows no focal abnormalities. LABORATORY DATA: White blood cell count is 10.8, the hemoglobin is 10.8, the platelet count is 514. The BNP is 1175. Potassium is 3.4 and the other electrolytes are within normal limits. RADIOGRAPHIC DATA: Chest x-ray shows left pleural effusion as well as cardiomegaly. IMPRESSION: 1. [id number] systolic congestive heart failure. 2. Worsening left pleural effusion. 3. Subacute pulmonary embolism and venous thrombosis. 4. Atrial fibrillation. 5. Hypokalemia. PLAN: 1. Continue diuresis. 2. Repeat chest x-ray in the morning. 3. Hold Eliquis and consider possible thoracentesis if effusion is not improving. 4. Consult Cardiology and Hematology. MD LEONIDAS Rudolph/MIKE /[id number]
--- NOTE | 2019-01-10 14:33 | NUR ---
[employer] CALLED AND REPORTED PATIENT HAS AFIB WITH RVR, CALLED [facility], MESSAGE LEFT WITH RETURN NUMBER.
--- NOTE | 2019-01-10 14:45 | NUR ---
CALLED DR. CHRIST[facility]SON[facility]S [facility]SWERING [facility], REQUESTED CALL BACK FROM THE PHYSICIAN FOR ORDERS.
[2019-01-10] MEDS ORDERED: DIGOXIN INJ 0.25 MG/ML 2 ML AMP IV NR (15:00)
[2019-01-10] MEDS ORDERED: DILTIAZEM HCL 30 MG TAB PO SCH (15:00)
--- NOTE | 2019-01-10 16:35 | NUR ---
Pt presented to be in room, yelling out down the hallway, slamming door to room. Pt yelled "I am going to kill you" from room. Pt combative, throwing things around in the room. Staff approached the room, pt continued to screaming curse words, slamming things around room, and making verbal threats towards staff. Dial Lathe Operator notified regarding pt. mechanics supervisor entered room to speak with pt, pt continued behavior and slammed door to room. 911 called.
--- NOTE | 2019-01-10 16:42 | NUR ---
Code bell called.
--- NOTE | 2019-01-10 16:45 | NUR ---
Police arrived in response to call. Information provided.
--- NOTE | 2019-01-10 16:46 | NUR ---
Pt refused to sign AMA paperwork.
--- NOTE | 2019-01-10 22:08 | Consultation ---
DATE OF CONSULTATION: CONSULTING PHYSICIAN: Fidel Presley MD, Hematology-Oncology Service REASON FOR CONSULTATION: Evaluation and management of patient with known history of recurrent venous thromboembolism, presented with progressive lower extremity swelling and shortness of breath. HISTORY OF PRESENTING ILLNESS: Mr. Greenwood is a very pleasant 48-year-old gentleman, who is very well known to me as he is my clinic patient, originally from [place], [place] with a known history of systolic cardiomyopathy, atrial fibrillation, history of pulmonary embolism and extensive deep vein thrombosis, receiving anticoagulation with Eliquis. He also has nonischemic cardiomyopathy with ejection fraction of 20%. He presented with progressive lower extremity swelling and shortness of breath. CT scan was performed, which remained negative for PE. He has been admitted to inpatient floor for diuresis and cardiac evaluation. Hematology-Oncology has been consulted to assist with the management. Presently, he is lying comfortably, not in acute distress, breathing somewhat improved. He is started on diuretics. PAST MEDICAL HISTORY: 1. Nonischemic cardiomyopathy with normal coronaries. 2. Atrial fibrillation. 3. Extensive DVT and pulmonary embolism. PAST SURGICAL HISTORY: Coronary angiogram. SOCIAL HISTORY: The patient is originally from [place], [place], presently residing in his [facility] and on disability. He has a history of drinking. Denies illicit drug use and current history of smoking. FAMILY HISTORY: Negative for thrombophilia or hematologic disorder. ALLERGIES: NO KNOWN DRUG ALLERGIES. CURRENT MEDICATIONS: Reviewed as per electronic medical record. REVIEW OF SYSTEMS: A 14-point review of systems negative except as mentioned per history of presenting illness. PHYSICAL EXAMINATION: VITAL SIGNS: Reviewed as per electronic medical record. HEENT: PERRLA. Extraocular movements are intact. Head is atraumatic and normocephalic. NECK: Supple. CVS: S1 and S2 audible. RESPIRATORY: Decreased bilateral air entry. ABDOMEN: Soft. Positive bowel sounds. EXTREMITIES: Positive bilateral edema. NEURO: The patient is alert and awake. LABORATORY DATA: Reviewed as per electronic medical record. ASSESSMENT AND PLAN: Mr. Greenwood is a very pleasant 48-year-old young gentleman with known history of nonischemic cardiomyopathy, atrial fibrillation, recurrent deep vein thrombosis and pulmonary embolism, presently on anticoagulation as well as bipolar disorder, presented due to lower extremity weakness and swelling. He underwent an x-ray of the chest, which did show increased left-sided pleural effusion. Otherwise, no significant change. He was seen and evaluated by Pulmonary and presently on diuretics and intended to have progression of disease. At this point, recommendation would be to monitor and provide supportive care. If he is trying to have procedure, then I will switch his anticoagulation to the Lovenox. Thank you for the consult. I will continue to be available. Please call with questions. Fidel Presley MD IJ/MODL /[id number]
[2019-01-11] MEDS ORDERED: DIGOXIN INJ 0.25 MG/ML 2 ML AMP IV ONE (06:00)
[2019-01-11] MEDS ORDERED: ENOXAPARIN SODIUM INJ 100 MG/ML SYR SC SCH (09:00)
== END 2019-01-10 16:25 | disposition left against medical advice (07) ==
LOC: ER 00:49 → ERHOLD 03:35 → IMCU 05:39
PROVIDERS: ADMIT Internal Medicine Critical Care Medicine; ATTEND Internal Medicine Critical Care Medicine
DX: I11.0 Hypertensive heart disease with heart failure (principal); I50.23 Acute on chronic systolic (congestive) heart failure; I48.2 Chronic atrial fibrillation; J44.9 Chronic obstructive pulmonary disease, unspecified; Z86.718 Personal history of other venous thrombosis and embolism; Z79.01 Long term (current) use of anticoagulants; F31.9 Bipolar disorder, unspecified; E87.6 Hypokalemia; Z23 Encounter for immunization; D64.9 Anemia, unspecified; I82.621 Acute embolism and thrombosis of deep veins of right upper extremity; Z86.711 Personal history of pulmonary embolism
CPT/HCPCS: 36415; 71046; 80053; 82550; 82553; 83880; 84484; 85025; 85610; 85730; 90732; 93005; 93970; 99284; G0009; G0378; J1160; J1940